=== PATIENT | male | born 1970 | race Caucasian/White ===

== ENCOUNTER 2020-09-03 11:39 | Outpatient (REF) | payer MEDICAID, SELFPAY ==
--- NOTE | 2020-09-03 11:46 | XR_ITS ---
EXAMINATION: XR KNEE, LEFT CLINICAL INFORMATION: Left knee pain x1 month COMPARISON: None TECHNIQUE: Four views of the left knee. FINDINGS: Bones and soft tissues are normal. No fracture or joint effusion. Alignment is anatomic. Joint spaces are well maintained. No abnormal soft tissue calcification. XR/XR knee LT 3V IMPRESSION: Unremarkable left knee.
== END 2020-09-03 11:40 | disposition home or self-care (01) ==
LOC: HO.XRAY 11:39
PROVIDERS: PCP Family Medicine; Visit Provider Family Medicine
DX: M25.562 Pain in left knee (principal)
CPT/HCPCS: 73562

== ENCOUNTER 2020-09-09 09:24 | Outpatient (REF) | payer MEDICAID, SELFPAY | END 2020-09-09 09:25 | disposition home or self-care (01) | LOC: HO.LAB 09:24 | PROVIDERS: PCP Family Medicine; Visit Provider Internal Medicine | DX: Z20.828 Contact with and (suspected) exposure to other viral communicable diseases (principal) | CPT/HCPCS: C9803; U0003 ==

== ENCOUNTER 2020-10-07 12:36 | Outpatient (REF) | payer MEDICAID, SELFPAY | END 2020-10-07 12:37 | disposition home or self-care (01) | LOC: HO.LAB 12:36 | PROVIDERS: Visit Provider Internal Medicine | DX: Z20.828 Contact with and (suspected) exposure to other viral communicable diseases (principal) | CPT/HCPCS: C9803; U0003 ==

== ENCOUNTER 2020-11-03 18:56 | Outpatient (REF) | payer MEDICAID, SELFPAY ==
--- NOTE | 2020-11-03 18:58 | MR_ITS ---
EXAMINATION: MR KNEE WITHOUT CONTRAST, LEFT CLINICAL INFORMATION: Left knee pain and swelling. Surgery in July 2020. COMPARISON: Multiple priors, most recent left knee radiographs dated 09/13/2020 TECHNIQUE: MRI of the knee without contrast was performed using routine sequences on a high-field scanner. FINDINGS: MENISCI: Medial Meniscus: Intact Lateral Meniscus: Focal inner margin oblique tear of the posterior meniscal body and posterior horn junction. LIGAMENTS: Cruciate: Intact Collateral: Mild soft tissue edema adjacent to the proximal medial collateral ligament, consistent with a grade 1 sprain. Intact fibular collateral ligament. EXTENSOR MECHANISM: Intact. ARTICULAR CARTILAGE/BONE: Patellofemoral Compartment: Normal. Medial Compartment: Normal. Lateral Compartment: Normal. JOINT FLUID AND BURSAE: Normal. MR/MR knee LT wo con IMPRESSION: 1. Focal inner margin oblique tear of the lateral meniscus posterior body/posterior horn junction. 2. Grade 1 sprain of the proximal medial collateral ligament.
== END 2020-11-03 18:57 | disposition home or self-care (01) ==
LOC: HO.MRI 18:56
PROVIDERS: Visit Provider Family Medicine
DX: M25.562 Pain in left knee (principal)
CPT/HCPCS: 73721

== ENCOUNTER → 2020-11-11 10:21 | Outpatient (BNVA) | payer MEDICAID, SELFPAY | PROVIDERS: Visit Provider Physician Assistant | DX: S83.412A Sprain of medial collateral ligament of left knee, initial encounter (principal) | CPT/HCPCS: 99202 ==

== ENCOUNTER 2020-12-14 15:42 | Emergency (ER) | payer MEDICAID, SELFPAY ==
[2020-12-14 16:14] VITALS: BP 145/76; PULSE 97; RESP 18; TEMP 37.1; O2SAT 97; BMI 19.8
[2020-12-14 19:35] VITALS: BP 121/73; PULSE 83; RESP 16; TEMP 36.7; O2SAT 99
[2020-12-14] MEDS: Lidocaine HCl 1 % MPF 5 ML VIAL SUBCUT ×2 (20:12)
[2020-12-14 20:32] VITALS: BP 109/76; PULSE 72; RESP 18; TEMP 36.6; O2SAT 95
--- NOTE | 2020-12-14 20:57 | ED.WOUNDLAC ---
HPI - Wound/Laceration General Chief Complaint: Wound/Laceration Stated Complaint: abcess Time Seen by Provider: 12/14/20 19:35 History of Present Illness HPI narrative: Patient complains of abscess in perineum that is recurrent and burst a couple of days ago with discharge of pus but now is closed up and starting to swell again no fever no dysuria Related Data Home Medications Medication Instructions Recorded Confirmed acetaminophen 650 mg 650 mg PO Q8H 11/11/20 tablet,extended release clonazepam 1 mg tablet 1 mg PO DAILY 11/11/20 cyclobenzaprine 5 mg tablet 5 mg PO BEDTIME 11/11/20 lisinopril 5 mg tablet 5 mg PO DAILY 11/11/20 loratadine 10 mg capsule 10 mg PO DAILY 11/11/20 Previous Rx's Medication Instructions Recorded doxycycline hyclate 100 mg PO BID 7 Days #14 cap 12/14/20 ibuprofen 600 mg PO Q6H PRN #14 tab 12/14/20 oxycodone-acetaminophen [Percocet] 1 tab PO Q4-6H PRN #7 tab 12/14/20 Allergies Allergy/AdvReac Type Severity Reaction Status Date / Time No Known Allergies Allergy Verified 12/14/20 16:14 Review of Systems Review of Systems: Complains of painful bump in perineum Review of systems negatives are no fever no chills no dizziness no weakness no dysuria no abdominal pain no genital discharge no rash no source Yes all other systems are reviewed and are negative [facility] Past Medical History Source: nursing notes reviewed Medical History (Updated 12/14/20 @ 21:05 by TAVIA Montez) Anxiety Arthritis Depression Fibromyalgia Hypertension Surgical History History of breast augmentation Social History Social History (Updated 11/11/20 @ 10:31 by aVlerie Anna CMA) Alcohol intake: unknown Smoking Status: Unknown if ever smoked Use of substances other than those prescribed or required for medical reasons: Unknown Advance Directives: No Advance Directives Information Provided: Yes Current occupational status: disabled Current occupation: Right Handed Physical Exam Vital Signs: Vital Signs: Last Vital Signs Temp 97.8 F 12/14/20 20:32 Pulse 72 12/14/20 20:32 Resp 18 12/14/20 20:32 BP 109/76 12/14/20 20:32 Pulse Ox 95 12/14/20 20:32 Body Mass Index 19.8 General appearance no acute distress cooperative A&O x3 Neck is supple Respiratory no acute distress Abdomen nontender Exam of the pin air perineum shows a quarter-sized area of fluctuance and erythema with some induration with no surrounding redness warmth, there is no wound there is no discharge there is no evidence of surrounding cellulitis Extremities full range of motion x4 Neuro no focal deficit Course Course Course Narrative: Small perineal abscess is cleansed with Betadine, anesthesia was 5 cc of 1% lidocaine A small incision less than 1/2 cm was made and the area was probed loculations broken up discharge of a small quantity of pus and small amount of blood packing was placed bleeding was controlled and a dressing was applied Discharge Plan Discharge Clinical Impression: Abscess Patient Disposition: Home, Self-Care Additional Instructions: Return to ER in 2 days for packing removal and wound check Return anytime for worse pain and swelling, spreading redness, fever, any concerns about worsening infection or any worse condition or any concerns Prescriptions: New doxycycline hyclate 100 mg capsule 100 mg PO BID 7 Days Qty: 14 RF: 0 ibuprofen 600 mg tablet 600 mg PO Q6H PRN (Reason: pain) Qty: 14 RF: 0 oxycodone-acetaminophen [Percocet] 5-325 mg tablet 1 tab PO Q4-6H PRN (Reason: pain) Qty: 7 RF: 0
== END 2020-12-14 20:15 | disposition home or self-care (01) ==
PROVIDERS: Emergency Provider Internal Medicine; PCP Family Medicine
DX: L02.215 Cutaneous abscess of perineum (principal)
CPT/HCPCS: 10060; 99284

== ENCOUNTER 2021-01-28 12:00 | Outpatient (RCR) | payer MEDICAID, SELFPAY ==
[2020-12-09 11:05] VITALS: BP 123/79; PULSE 99
--- NOTE | 2020-12-09 12:30 | MHC.PT.EP ---
[facility] [place] Office [place] Office [place] Office [address] Estela Bella [address] [phone] F: [phone] F: [phone] F: [phone] F: [phone] Physical Therapy Plan of Care Date of Evaluation: 12/09/20 Date of Surgery: NA Diagnosis: Sprain of medial collateral ligament of L knee Assessment: Linda is a 50 year-old female presenting to physical therapy with a diagnosis of a grade 1 MCL sprain in her left knee. She presents with point tenderness to palpation over her L medial joint line, decreased BL knee ROM, impaired BL LE strength,impaired posture, and impaired gait mechanics. These impairments limit her ability to squat, climb stairs, perform heavy vacation guide, and walk long distances. Linda would benefit from skilled physical therapy to address the aforementioned impairments and increase her tolerance to performing vacation guide, self-care activities, and ambulate safely in the community. Linda has a good understanding of her rehabilitation program and she is motivated to return to her PLOF. Frequency and Duration: The patient will be seen 2 visits per week for 6 weeks Short Term Goals: 1.) Pt will report <2/10 pain in her knee at rest in order to perform leisure activities within 3 weeks. 2.) Pt will tolerate walking for >15 minutes to allow for ambulation in the community when attending doctor's appointments within 3 weeks. Compliance Coordinator Goals: 1.) Pt will improve global LE strength to 5-/5 to allow her to perform heavy vacation guide without restrictions within 6 weeks. 2.) Pt will demonstrate BL knee ROM WNL to enable her to squat down and obtain items from the floor when cleaning the house. Treatment Plan: Modalities to reduce pain, spasms and effusion. Manual therapy to restore motion and function. Therapeutic exercise to improve strength and flexibility. Neuromuscular re-education for posture and balance. Therapeutic activities to return to functional activities of daily living. Electronically signed by: Guera Lawson DPT Please sign and return to therapist. Thank you for your referral.
--- NOTE | 2021-01-28 12:46 | MHC.PT.DC ---
[facility] [place] Office [place] Office [place] Office [address] Estela Bella [address] [phone] F: [phone] F: [phone] F: [phone] F: [phone] Physical Therapy Discharge Report Diagnosis: Sprain of medial collateral ligament of L knee Date of Surgery: NA Date of Evaluation: 12/09/20 Date of Discharge: 01/28/21 Treatments to Date: 8 Cancellations to Date: 1 No Shows to Date: 2 Discharge Status: Achieved Goals Improved Function Discharge Summary: 01/28/21- Pt states that her knee feels good when she does not have fibromylagia flare ups. Pt has overall improved significantly and is independent with all HEPs. The days she does not have fibromyalgia flare ups she is independent with all ADLS and leisure activities. She has also been able to tolerate walking for 15-30 minutes without any increase in pain. Linda was advised to continue with her strengthening exercises to further improve her strength in B LE. She is d/c from therapy to HEPs. Linda was in agreement with the plan. Electronically signed by: Guera Lawson DPT Please sign and return to therapist. Thank you for your referral.
== END 2021-01-28 12:47 | disposition other institution (70) ==
LOC: HO.PT 12:00
PROVIDERS: PCP Family Medicine; Visit Provider Physician Assistant
DX: S83.412D Sprain of medial collateral ligament of left knee, subsequent encounter (principal)
CPT/HCPCS: 97110; 97112; 97161; 97530

== ENCOUNTER 2021-04-06 18:17 | Emergency (ER) | payer MEDICAID, SELFPAY ==
--- NOTE | ~2021-04-06 | XR_ITS ---
EXAMINATION: XR TIBIA AND FIBULA, LEFT CLINICAL INFORMATION: Fracture with trauma COMPARISON: None TECHNIQUE: AP and lateral views of the left tibia and fibula were obtained. FINDINGS: A defect in the soft tissues overlying the anterior fr[place] is present. No bony abnormality is seen. The visualized ankle and knee joints appears normal. No radiopaque foreign bodies are seen. XR/XR tibia fibula LT 2V IMPRESSION: There is a soft tissue defect seen in the upper france. No bony abnormality is detected
[2021-04-06 18:26] VITALS: BP 97/52; PULSE 85; RESP 20; TEMP 36.9; O2SAT 96; BMI 18.2
[2021-04-06] MEDS: Lidocaine HCl 2 % MPF 5 ML VIAL INFILTRATI ×2 (19:11)
[2021-04-06] MEDS: Ibuprofen 800 MG TABLET PO (19:11)
[2021-04-06] MEDS: Diphth,Pertus(ACell),Tet Adult 0.5 ML SYRINGE IM (19:12)
--- NOTE | 2021-04-06 20:08 | ED_ITS ---
HPI - Wound/Laceration General Chief Complaint: Wound/Laceration Stated Complaint: lac Time Seen by Provider: 04/06/21 18:28 Source: patient Mode of arrival: ambulatory Limitations: no limitations History of Present Illness HPI narrative: Left leg laceration after AC unit fell on leg. Patient denies falling to the ground. Patient denies hitting head. Patient is not on any blood thinners. Related Data Home Medications Medication Instructions Recorded Confirmed acetaminophen 650 mg 650 mg PO Q8H 11/11/20 tablet,extended release clonazepam 1 mg tablet 1 mg PO DAILY 11/11/20 cyclobenzaprine 5 mg tablet 5 mg PO BEDTIME 11/11/20 lisinopril 5 mg tablet 5 mg PO DAILY 11/11/20 loratadine 10 mg capsule 10 mg PO DAILY 11/11/20 Previous Rx's Medication Instructions Recorded doxycycline hyclate 100 mg PO BID 7 Days #14 cap 12/14/20 ibuprofen 600 mg PO Q6H PRN #14 tab 12/14/20 oxycodone-acetaminophen [Percocet] 1 tab PO Q4-6H PRN #7 tab 12/14/20 cephalexin 500 mg PO QID #28 cap 04/06/21 Allergies Allergy/AdvReac Type Severity Reaction Status Date / Time No Known Allergies Allergy Verified 12/14/20 16:14 Review of Systems Review of Systems: Yes all other systems are reviewed and are negative Constitutional: Constitutional: Reports as per HPI and Reports no additional constitutional complaints Eyes: Eyes: Reports as per HPI and Reports no additional eye complaints ENT: Reports system reviewed and no additional complaints, except as documented and Reports as per HPI Cardiovascular: Cardiovascular: Reports as per HPI and Reports no additional cardiovascular complaints Respiratory: Respiratory: Reports as per HPI and Reports no additional respiratory complaints Gastrointestinal: Gastrointestinal: Reports as per HPI and Reports no additional gastrointestinal complaints Genitourinary: Genitourinary: Reports no additional male genitourinary complaints and Reports as per HPI Musculoskeletal: Musculoskeletal: Reports no additional musculoskeletal complaints and Reports as per HPI Comments: Left leg laceration Neurologic: Reports system reviewed and no additional complaints, except as documented and Reports as per HPI Psychiatric: Psychiatric: Reports no additional psychiatric complaints and Reports as per HPI [facility] Past Medical History Medical History (Updated 04/06/21 @ 21:22 by TAVIA Chand) Anxiety Arthritis Depression Fibromyalgia Hypertension Surgical History History of breast augmentation Social History Social History (Updated 11/11/20 @ 10:31 by Valerie Anna [facility]) Alcohol intake: unknown Advance Directives: No Advance Directives Information Provided: Yes Current occupational status: disabled Current occupation: Right Handed Physical Exam Vital Signs: Vital Signs: Last Vital Signs Temp 97.9 F 04/06/21 20:51 Pulse 73 04/06/21 20:51 Resp 16 04/06/21 20:51 BP 130/82 04/06/21 20:51 Pulse Ox 99 04/06/21 20:51 Body Mass Index 18.2 Const: General: cooperative, healthy appearing, comfortable, no acute distress, well developed, alert, awake and Physically active Orientation/consciousness: patient oriented x3 HENMT: Head: Yes normal to inspection, Yes No palpable skull fracture present, Yes normocephalic, Yes atraumatic, No abrasion, No Acrocyanosis present, No Soilman's sign, No contusion, No cranial bruits, No hematoma, No laceration, No occipital foramen tenderness, No palpable skull fracture, No raccoon eyes, No scalp lesion, No scalp tenderness, No Temporal artery tenderness present and No periorbital ecchymosis Eyes: General: appearance normal, both eyes and all related structures Neck: Neck: Yes normal visual inspection, Yes full ROM, Yes no lymphadenopathy, Yes no meningeal signs, Yes trachea midline, Yes supple and No tender Chest: Chest palpation & inspection: normal inspection of the chest and normal palpation of entire chest wall Resp: Effort & Inspection: normal respiratory effort and able to speak in complete sentences Auscultation: clear to auscultation bilaterally Cardio: Jugular venous distension: no JVD Heart sounds: S1 normal heart sound present and S2 normal heart sound present GI: Inspection: Yes normal to inspection and No abdominal wall ecchymosis Palpation (GI): Soft to palpation, not firm, nontender, no guarding and not rigid : General: No CVA tenderness Back/Spine/Pelvis: Back: no CVA tenderness, No CVA tenderness and No back tenderness Skin: General skin exam: no rashes or lesions noted and elasticity normal Neuro: General: patient oriented x3, no meningeal signs and CN's II-XI intact bilaterally Cranial nerves: Yes CN's II-XII intact bilaterally Extrem: Other: Left leg positive for large anterior laceration with fascial exposure. Negative for bony exposure. Psych: Appearance: grossly normal, well kempt and not disheveled Course Course Course Narrative: Left leg laceration will do x-ray. Reevaluation(s) Reevaluation #1: X-ray negative for fracture. Will repair laceration. Tdap ordered. Motrin given for pain relief Reevaluation #2: Laceration clean with sterile saline and Betadine iodine. Laceration anesthetized with 10 mL 2% lidocaine. Very large laceration and deep with subcutaneous exposure. Two deep absorbable size 5 sutures were placed in wound. For super superficial skin size 3 nylon sutures were placed. Eleven simple sutures sutures were placed. One horizontal vertical suture mattress placed. Due to in severity of laceration and also being hit by dirty AC patient will be discharged with antibiotics to prevent in fection Time: 21:21 MDM - Wound/Laceration MDM Narrative Medical decision making narrative: Laceration Discharge Plan Discharge Clinical Impression: Laceration Patient Disposition: Home, Self-Care Instructions: Laceration (ED) Additional Instructions: Return to the ED immediately for redness, pus discharge, foul odor, fever, chills, any other concerning symptoms. Sutures should be removed in 12 days at this ED, any urgent care, or primary care. Keep laceration dry within the 1st 24 hours Prescriptions: New cephalexin 500 mg capsule 500 mg PO QID Qty: 28 RF: 0 No Action doxycycline hyclate 100 mg capsule 100 mg PO BID 7 Days Qty: 14 RF: 0 ibuprofen 600 mg tablet 600 mg PO Q6H PRN (Reason: pain) Qty: 14 RF: 0 oxycodone-acetaminophen [Percocet] 5-325 mg tablet 1 tab PO Q4-6H PRN (Reason: pain) Qty: 7 RF: 0 Stand Alone Forms: Work/School Release Print Language: Romansh
[2021-04-06 20:51] VITALS: BP 130/82; PULSE 73; RESP 16; TEMP 36.6; O2SAT 99
--- NOTE | 2021-04-06 21:14 | PC.NURSE ---
PCT CLEANED AND APPLIED DSD TO SUTURED WOUND LLE. PT AMBULATING IN ED W/ EVEN STEADY GAIT.
== END 2021-04-06 21:37 | disposition home or self-care (01) ==
PROVIDERS: Emergency Provider Emergency Medicine; PCP Family Medicine
DX: S81.812A Laceration without foreign body, left lower leg, initial encounter (principal); W45.8XXA Other foreign body or object entering through skin, initial encounter; Y93.E9 Activity, other interior property and clothing maintenance; Y92.019 Unspecified place in single-family (private) house as the place of occurrence of the external cause; Y99.9 Unspecified external cause status
CPT/HCPCS: 12032; 73590; 90471; 90715; 99284

== ENCOUNTER 2021-04-08 14:44 | Outpatient (REF) | payer MEDICAID, SELFPAY ==
--- NOTE | 2021-04-08 | PFT_ITS ---
Forced vital capacity and FEV1 are normal. [id number] is slightly decreased. MVV normal. Post bronchodilator therapy, there is a minimal improvement in [id number]. Total lung capacity and residual volume normal. Diffusion capacity is slightly decreased. CONCLUSION: Mild obstructive airway disorder, mainly involving small airways. There is a minimal improvement after bronchodilator therapy. Clinical correlation is recommended. MD JANE Carlton/MODL / [id number]
== END 2021-04-08 14:45 | disposition home or self-care (01) ==
LOC: HO.RESP 14:44
PROVIDERS: PCP Family Medicine; Visit Provider Family Medicine
DX: J45.30 Mild persistent asthma, uncomplicated (principal)
CPT/HCPCS: 94060; 94727; 94729

== ENCOUNTER 2021-04-20 11:21 | Emergency (ER) | payer MEDICAID, SELFPAY ==
[2021-04-20 11:59] VITALS: BP 123/78; PULSE 72; RESP 16; TEMP 36.7; O2SAT 100; BMI 19.0
--- NOTE | 2021-04-20 12:53 | ED.WOUNDLAC ---
HPI - Wound/Laceration General Chief Complaint: Wound/Laceration Stated Complaint: suture removal Time Seen by Provider: 04/20/21 12:21 Source: patient Mode of arrival: ambulatory History of Present Illness HPI narrative: 50-year-old female presenting to the ED for suture removal from a left lower extremity that were placed on 04/06/2021. Admits to mild swelling to area. Denies drainage, fever, chills, ecchymosis, erythema Onset (ago): week(s) Related Data Home Medications Medication Instructions Recorded Confirmed acetaminophen 650 mg 650 mg PO Q8H 11/11/20 tablet,extended release clonazepam 1 mg tablet 1 mg PO DAILY 11/11/20 cyclobenzaprine 5 mg tablet 5 mg PO BEDTIME 11/11/20 lisinopril 5 mg tablet 5 mg PO DAILY 11/11/20 loratadine 10 mg capsule 10 mg PO DAILY 11/11/20 Previous Rx's Medication Instructions Recorded doxycycline hyclate 100 mg PO BID 7 Days #14 cap 12/14/20 ibuprofen 600 mg PO Q6H PRN #14 tab 12/14/20 oxycodone-acetaminophen [Percocet] 1 tab PO Q4-6H PRN #7 tab 12/14/20 cephalexin 500 mg PO QID #28 cap 04/06/21 acetaminophen [Tylenol Extra 500 mg PO Q6H PRN #20 tab 04/20/21 Strength] bacitracin 1 appl TOPICAL BID #28 g 04/20/21 doxycycline hyclate 100 mg PO BID 7 Days #14 tab 04/20/21 ibuprofen 800 mg PO Q8H PRN #14 tab 04/20/21 Allergies Allergy/AdvReac Type Severity Reaction Status Date / Time No Known Allergies Allergy Verified 12/14/20 16:14 Review of Systems Review of Systems: Constitutional: No Fever, No Chills Musculoskeletal: No joint pain, No Myalgias, No Joint Swelling Skin: + laceration Neuro: No Weakness, No Numbness, No Paresthesias Yes all other systems are reviewed and are negative [facility] Past Medical History Attestation statement: The following information was validated with the patient. Medical History (Updated 04/20/21 @ 12:59 by TAVIA Le) Anxiety Arthritis Depression Fibromyalgia Hypertension Surgical History History of breast augmentation Social History Social History (Updated 11/11/20 @ 10:31 by Valerie Anna CMA) Alcohol intake: unknown Advance Directives: No Advance Directives Information Provided: No Current occupational status: disabled Current occupation: Right Handed Physical Exam Vital Signs: Vital Signs: Last Vital Signs Temp 98.0 F 04/20/21 11:59 Pulse 72 04/20/21 11:59 Resp 16 04/20/21 11:59 BP 123/78 04/20/21 11:59 Pulse Ox 100 04/20/21 11:59 Body Mass Index 19.0 Const: General: cooperative and healthy appearing Orientation/consciousness: patient oriented x3 Limitations: no limitations HENMT: Head: Yes normal to inspection Ears: hearing grossly normal bilaterally General nose exam: Normal external nose present Face and sinus: Yes normal facial exam Eyes: General: appearance normal, both eyes and all related structures EOM: EOMs intact bilaterally Neck: Neck: Yes normal visual inspection and Yes no meningeal signs Resp: Effort & Inspection: normal respiratory effort Cardio: Peripheral pulses: dorsalis pedis present Skin: Other: + healing laceration to left lower extremity with sutures intact. Underlying hematoma. No overlying erythema/cellulitis. No fluctuance/induration. No streaking. No expressible drainage Rashes: no rashes Neuro: General: patient oriented x3 and no meningeal signs Gait exam (Neuro): Normal gait present Extrem: General: Yes normal to inspection Procedures Procedure Narrative Procedure Narrative: Suture removal : 12 sutures removed from left lower extremity MDM - Wound/Laceration MDM Narrative Medical decision making narrative: 50-year-old female presenting to the ED for suture removal from a left lower extremity that were placed on 04/06/2021. On exam VSS, NAD, physical exam as above. 12 sutures removed from left lower extremity. Underlying hematoma appreciated Bacitracin and Kobe wrap applied. Given prophylactic antibiotics Discharge Plan Discharge Clinical Impression: Visit for suture removal, Hematoma Patient Disposition: Home, Self-Care Instructions: Stitches Removal (ED) Additional Instructions: Stitches removed today in the ED Apply bacitracin at home or Neosporin Wear Kobe wrap for compression Doxycycline as antibiotic to prophylactically treat any infective hematoma You should follow-up with the alignment specialist as previously instructed Area begins to look infected, is red, there is pus drainage, you have fever please return to the ED Otherwise follow-up with her primary care doctor Prescriptions: New acetaminophen [Tylenol Extra Strength] 500 mg tablet 500 mg PO Q6H PRN (Reason: pain or fever) Qty: 20 RF: 0 doxycycline hyclate 100 mg tablet 100 mg PO BID 7 Days Qty: 14 RF: 0 ibuprofen 800 mg tablet 800 mg PO Q8H PRN (Reason: pain) Qty: 14 RF: 0 bacitracin 500 unit/gram ointment 1 appl topical BID Qty: 28 RF: 0 No Action doxycycline hyclate 100 mg capsule 100 mg PO BID 7 Days Qty: 14 RF: 0 ibuprofen 600 mg tablet 600 mg PO Q6H PRN (Reason: pain) Qty: 14 RF: 0 oxycodone-acetaminophen [Percocet] 5-325 mg tablet 1 tab PO Q4-6H PRN (Reason: pain) Qty: 7 RF: 0 cephalexin 500 mg capsule 500 mg PO QID Qty: 28 RF: 0 Referrals: Mara Mariscal DO [Primary Care Provider] - 2 days Ayaka Gotti PA-C [Physician [employer] Patcher Helper] - 5 days
== END 2021-04-20 13:13 | disposition home or self-care (01) ==
PROVIDERS: Emergency Provider Emergency Medicine; PCP Family Medicine
DX: S81.812D Laceration without foreign body, left lower leg, subsequent encounter (principal); X58.XXXD Exposure to other specified factors, subsequent encounter; S80.12XA Contusion of left lower leg, initial encounter; X58.XXXA Exposure to other specified factors, initial encounter; Y93.9 Activity, unspecified; Y92.9 Unspecified place or not applicable; Y99.9 Unspecified external cause status
CPT/HCPCS: 99283

== ENCOUNTER 2021-05-08 02:36 | Emergency (ER) | payer MEDICAID, SELFPAY ==
[2021-05-08 03:10] VITALS: BP 130/83; PULSE 89; RESP 18; TEMP 36.7; O2SAT 97; BMI 19.8
--- NOTE | 2021-05-08 03:24 | ED.WOUNDLAC ---
HPI - Wound/Laceration General Chief Complaint: Wound/Laceration Stated Complaint: Accident at home, lac Time Seen by Provider: 05/08/21 03:24 History of Present Illness HPI narrative: Patient is 50 years old presents today with having a wound to his left leg. Patient had a previous history of laceration to the wound. Subsequently was sutured. The sutured root was removed. Patient complained that the redness remain. He has been spraying the wounds regularly with peroxide. Patient is extremely concerned why the wound is still red. Related Data Home Medications Medication Instructions Recorded Confirmed acetaminophen 650 mg 650 mg PO Q8H 11/11/20 tablet,extended release clonazepam 1 mg tablet 1 mg PO DAILY 11/11/20 cyclobenzaprine 5 mg tablet 5 mg PO BEDTIME 11/11/20 lisinopril 5 mg tablet 5 mg PO DAILY 11/11/20 loratadine 10 mg capsule 10 mg PO DAILY 11/11/20 Previous Rx's Medication Instructions Recorded doxycycline hyclate 100 mg PO BID 7 Days #14 cap 12/14/20 ibuprofen 600 mg PO Q6H PRN #14 tab 12/14/20 oxycodone-acetaminophen [Percocet] 1 tab PO Q4-6H PRN #7 tab 12/14/20 cephalexin 500 mg PO QID #28 cap 04/06/21 acetaminophen [Tylenol Extra 500 mg PO Q6H PRN #20 tab 04/20/21 Strength] bacitracin 1 appl TOPICAL BID #28 g 04/20/21 doxycycline hyclate 100 mg PO BID 7 Days #14 tab 04/20/21 ibuprofen 800 mg PO Q8H PRN #14 tab 04/20/21 Allergies Allergy/AdvReac Type Severity Reaction Status Date / Time No Known Allergies Allergy Verified 12/14/20 16:14 Review of Systems Review of Systems: No fever no chills no chest pain or shortness of breath no diaphoresis PMFSH Past Medical History Attestation statement: The following information was validated with the patient. Medical History Anxiety Arthritis Depression Fibromyalgia Hypertension Surgical History History of breast augmentation Social History Social History Alcohol intake: unknown Advance Directives: No Current occupational status: disabled Current occupation: Right Handed Physical Exam Vital Signs: Vital Signs: Last Vital Signs Temp 98.0 F 05/08/21 03:10 Pulse 89 05/08/21 03:10 Resp 18 05/08/21 03:10 BP 130/83 05/08/21 03:10 Pulse Ox 97 05/08/21 03:10 Body Mass Index 19.8 Appearance: Alert. Oriented X3. No acute distress. Eyes: Pupils equal, round and reactive to light. ENT: Pharynx normal. Neck: Normal inspection. Neck supple. No lymph nodes noted. No crepitus CVS: Normal heart rate and rhythm. Pulses normal. Normal S1 and S2 Respiratory: No respiratory distress. Breath sounds normal. No Wheezing. No rales Abdomen: Soft and nontender. No rigidity. No distention. good BS x4 Skin: There is a healing wound over the left leg proximally midway down. It is slightly red. There is no purulent discharge noted. There is no fluctuance on palpation. Extremities: No lower extremity edema. Neurovascular intact to all extremities. No Lacerations. No Rash Neuro: Oriented X 3. No motor deficit. No sensory deficit. Moving all extermities. No slurred speech MDM - Wound/Laceration MDM Narrative Medical decision making narrative: Patient wound grossly not infected. It is however extremely irritated secondary to peroxide use. Patient told to stop using peroxide on the wound. Keep the wound clean with soap and water. Patient states understanding. In stable condition with discharge home. Discharge Plan Discharge Clinical Impression: Visit for wound care Patient Disposition: Home, Self-Care Instructions: Laceration (ED) Additional Instructions: Please do not use peroxide on the wound anymore. Prescriptions: No Action doxycycline hyclate 100 mg capsule 100 mg PO BID 7 Days Qty: 14 RF: 0 ibuprofen 600 mg tablet 600 mg PO Q6H PRN (Reason: pain) Qty: 14 RF: 0 oxycodone-acetaminophen [Percocet] 5-325 mg tablet 1 tab PO Q4-6H PRN (Reason: pain) Qty: 7 RF: 0 acetaminophen [Tylenol Extra Strength] 500 mg tablet 500 mg PO Q6H PRN (Reason: pain or fever) Qty: 20 RF: 0 doxycycline hyclate 100 mg tablet 100 mg PO BID 7 Days Qty: 14 RF: 0 ibuprofen 800 mg tablet 800 mg PO Q8H PRN (Reason: pain) Qty: 14 RF: 0 bacitracin 500 unit/gram ointment 1 appl topical BID Qty: 28 RF: 0 cephalexin 500 mg capsule 500 mg PO QID Qty: 28 RF: 0 Referrals: Physician,Unknown [Primary Care Provider] - 2 days
== END 2021-05-08 04:03 | disposition home or self-care (01) ==
PROVIDERS: Emergency Provider Emergency Medicine Emergency Medical Services
DX: S81.812D Laceration without foreign body, left lower leg, subsequent encounter (principal); X58.XXXD Exposure to other specified factors, subsequent encounter
CPT/HCPCS: 99282; 99284

== ENCOUNTER 2021-05-18 21:36 | Emergency (ER) | payer MEDICAID, SELFPAY ==
[2021-05-18 21:48] VITALS: BP 128/81; PULSE 86; RESP 18; TEMP 37.3; O2SAT 96; BMI 19.0
--- NOTE | 2021-05-18 22:25 | ED.LOWEXIN ---
HPI - Extremity Injury (Lower) General Chief Complaint: Extremity Injury, Lower Stated Complaint: leg injury Time Seen by Provider: 05/18/21 22:25 Source: patient Mode of arrival: ambulatory Limitations: no limitations History of Present Illness HPI Narrative: Patient with multiple visits for leg laceration and infection. The last time the patient was convinced the wound was infected but the provider did not feel that it was. Patient was not discharged on antibiotics Related Data Home Medications Medication Instructions Recorded Confirmed acetaminophen 650 mg 650 mg PO Q8H 11/11/20 tablet,extended release clonazepam 1 mg tablet 1 mg PO DAILY 11/11/20 cyclobenzaprine 5 mg tablet 5 mg PO BEDTIME 11/11/20 lisinopril 5 mg tablet 5 mg PO DAILY 11/11/20 loratadine 10 mg capsule 10 mg PO DAILY 11/11/20 Previous Rx's Medication Instructions Recorded doxycycline hyclate 100 mg PO BID 7 Days #14 cap 12/14/20 ibuprofen 600 mg PO Q6H PRN #14 tab 12/14/20 oxycodone-acetaminophen [Percocet] 1 tab PO Q4-6H PRN #7 tab 12/14/20 cephalexin 500 mg PO QID #28 cap 04/06/21 acetaminophen [Tylenol Extra 500 mg PO Q6H PRN #20 tab 04/20/21 Strength] bacitracin 1 appl TOPICAL BID #28 g 04/20/21 doxycycline hyclate 100 mg PO BID 7 Days #14 tab 04/20/21 ibuprofen 800 mg PO Q8H PRN #14 tab 04/20/21 Allergies Allergy/AdvReac Type Severity Reaction Status Date / Time No Known Allergies Allergy Verified 05/18/21 21:53 Review of Systems Constitutional: Constitutional: Reports no additional constitutional complaints Eyes: Eyes: Reports no additional eye complaints ENT: Denies dizziness Cardiovascular: Cardiovascular: Reports no additional cardiovascular complaints Respiratory: Respiratory: Reports as per HPI Gastrointestinal: Gastrointestinal: Reports no additional gastrointestinal complaints Musculoskeletal: Musculoskeletal: Reports no additional musculoskeletal complaints Integumentary/Breasts: Skin/Breast: Denies rash Neurologic: Reports system reviewed and no additional complaints, except as documented, Denies dizziness and Denies Sensory deficit (Neuro) Psychiatric: Psychiatric: Denies anxiety PMFSH Past Medical History Medical History Anxiety Arthritis Depression Fibromyalgia Hypertension Surgical History History of breast augmentation Social History Social History Alcohol intake: unknown Advance Directives: No Advance Directives Information Provided: No Current occupational status: disabled Current occupation: Right Handed Physical Exam Vital Signs: Vital Signs: Last Vital Signs Temp 99.1 F 05/18/21 21:48 Pulse 86 05/18/21 21:48 Resp 18 05/18/21 21:48 BP 128/81 05/18/21 21:48 Pulse Ox 96 05/18/21 21:48 Body Mass Index 19.0 Const: Other: very anxious out of proportion that wound is infected General: healthy appearing Nutritional Appearance: average body habitus Orientation/consciousness: oriented to person and patient oriented x3 Limitations: no limitations HENMT: Head: Yes normal to inspection Ears: external ears normal General nose exam: Normal external nose present Mouth: Normal oral and palatal mucosa present and oropharynx normal Throat: Yes posterior oropharynx normal Eyes: General: appearance normal, both eyes and all related structures Neck: Other: supple Neck: Yes normal visual inspection Chest: Chest palpation & inspection: normal inspection of the chest Resp: Auscultation: clear to auscultation bilaterally Cardio: Jugular venous distension: no JVD Rate: regular rate Rhythm: regular rhythm Heart sounds: S1 normal heart sound present and S2 normal heart sound present GI: Inspection: Yes normal to inspection Palpation (GI): Soft to palpation, nontender and No hepatosplenomegaly present Auscultation: normal bowel sounds : General: Yes no CVA tenderness Back/Spine/Pelvis: Back: no CVA tenderness Skin: Other: well healing wound no evidence of infection Neuro: General: oriented to person and patient oriented x3 Cranial nerves: Yes CN's II-XII intact bilaterally Motor exam (neuro): 5/5 motor strength present throughout Sensory Exam: No Sensory deficit (Neuro) Extrem: General: Yes normal to inspection Psych: Appearance: grossly normal Course Reevaluation(s) Reevaluation #1: bedside ultrasound negative for fluid collection Time: 22:37 Reevaluation #2: patient with anxiety about wound, no physical evidence for infection, will dc home Time: 22:37 Discharge Plan Discharge Clinical Impression: Encounter for assessment of wound Patient Disposition: Home, Self-Care Instructions: Wound Healing and Your Diet (ED) Prescriptions: No Action doxycycline hyclate 100 mg capsule 100 mg PO BID 7 Days Qty: 14 RF: 0 ibuprofen 600 mg tablet 600 mg PO Q6H PRN (Reason: pain) Qty: 14 RF: 0 oxycodone-acetaminophen [Percocet] 5-325 mg tablet 1 tab PO Q4-6H PRN (Reason: pain) Qty: 7 RF: 0 acetaminophen [Tylenol Extra Strength] 500 mg tablet 500 mg PO Q6H PRN (Reason: pain or fever) Qty: 20 RF: 0 doxycycline hyclate 100 mg tablet 100 mg PO BID 7 Days Qty: 14 RF: 0 ibuprofen 800 mg tablet 800 mg PO Q8H PRN (Reason: pain) Qty: 14 RF: 0 bacitracin 500 unit/gram ointment 1 appl topical BID Qty: 28 RF: 0 cephalexin 500 mg capsule 500 mg PO QID Qty: 28 RF: 0 Referrals: Mara Mariscal DO [Primary Care Provider] - 5 days
== END 2021-05-18 22:46 | disposition home or self-care (01) ==
PROVIDERS: Emergency Provider Emergency Medicine; PCP Family Medicine
DX: S81.819D Laceration without foreign body, unspecified lower leg, subsequent encounter (principal); X58.XXXD Exposure to other specified factors, subsequent encounter; F41.9 Anxiety disorder, unspecified
CPT/HCPCS: 99282; 99284

== ENCOUNTER 2021-05-22 12:35 | Emergency (ER) | payer MEDICAID, SELFPAY ==
[2021-05-22 12:54] VITALS: BP 128/85; PULSE 93; RESP 19; TEMP 36.2; O2SAT 98; BMI 19.0
--- NOTE | 2021-05-22 21:14 | ED.DENTAL ---
HPI - Dental/Oral General Chief complaint: Dental/Oral Stated complaint: ABSCESS Related Data Home Medications Medication Instructions Recorded Confirmed acetaminophen 650 mg 650 mg PO Q8H 11/11/20 12/28/21 tablet,extended release (Tylenol 8 Hour) clonazepam 1 mg tablet 1 mg PO DAILY 11/11/20 01/30/22 cyclobenzaprine 5 mg tablet 5 mg PO BEDTIME 11/11/20 01/30/22 lisinopril 5 mg tablet 5 mg PO DAILY 11/11/20 01/30/22 loratadine 10 mg capsule 10 mg PO DAILY 11/11/20 01/30/22 Previous Rx's Medication Instructions Recorded sodium,potassium,mag sulfates 17.5 See Rx Instructions PO .COMPLEX 12/28/21 gram-3.13 gram-1.6 gram oral soln #354 mL (Suprep Bowel Prep Kit) peg 3350-electrolytes 236 240 ml PO Q10M #4,000 mL 03/23/22 gram-22.74 gram-6.74 gram-5.86 gram solution (Golytely) ibuprofen 600 mg tablet 600 mg PO Q6H PRN pain #30 tabs 05/07/22 amoxicillin 875 mg-potassium 1 tab PO BID 10 days #20 tabs 05/28/22 clavulanate 125 mg tablet ibuprofen 800 mg tablet 800 mg PO Q8H PRN pain #14 tabs 05/28/22 oxycodone 5 mg tablet 5 mg PO Q6H PRN pain #14 tabs 05/28/22 Allergies Allergy/AdvReac Type Severity Reaction Status Date / Time No Known Allergies Allergy Verified 05/28/22 21:17 [facility] Past Medical History Medical History Anxiety Arthritis Depression Family history of colon cancer Fibromyalgia Hypertension Surgical History H/O colonoscopy History of breast augmentation Social History Social History Alcohol intake: current Alcohol intake frequency: a few times a month Alcohol type: beer and wine Patient Tobacco Use Status: Current everyday Tobacco user Substance Use Type: Marijuana Current occupational status: disabled Current occupation: Right Handed Physical Exam Vital Signs: Vital Signs: Last Vital Signs Temp 97.1 F 05/22/21 12:54 Pulse 93 05/22/21 12:54 Resp 19 05/22/21 12:54 BP 128/85 05/22/21 12:54 Pulse Ox 98 05/22/21 12:54 O2 Del Method 05/22/21 12:54 BMI result Body Mass Index 19.0 Discharge Plan Discharge Patient Disposition: Left Without Being Seen Discharge Date/Time: 05/22/21 15:12
== END 2021-05-22 15:12 | disposition left against medical advice (07) ==
PROVIDERS: Emergency Provider Emergency Medicine; PCP Family Medicine
DX: K04.7 Periapical abscess without sinus (principal)
CPT/HCPCS: 99281; 99282

== ENCOUNTER 2021-05-23 15:52 | Outpatient (REF) | payer MEDICAID, SELFPAY ==
--- NOTE | ~2021-05-23 | XR_ITS ---
EXAMINATION: XR MANDIBLE CLINICAL INFORMATION: Cutaneous abscess COMPARISON: None TECHNIQUE: 4 views of the mandible were obtained. FINDINGS: Bone alignment is normal. No fracture, dislocation or bone lesion is seen. There is periapical lucency adjacent to a tooth in the right inferior alveolar ridge in the incisor region. Soft tissues are unremarkable. XR/XR mandible <4V IMPRESSION: Periapical lucency adjacent to a tooth in the right inferior alveolar ridge in the incisor region. Otherwise unremarkable exam.
== END 2021-05-23 15:53 | disposition home or self-care (01) ==
LOC: HO.XRAY 15:52
PROVIDERS: PCP Family Medicine; Referring Provider Family Medicine; Visit Provider Nurse Practitioner Primary Care
DX: L02.91 Cutaneous abscess, unspecified (principal); R68.84 Jaw pain
CPT/HCPCS: 70100

== ENCOUNTER 2021-07-09 08:49 | Emergency (ER) | payer MEDICAID, SELFPAY ==
[2021-07-09 09:04] VITALS: BP 150/95; PULSE 85; RESP 18; TEMP 36.4; O2SAT 100; BMI 20.5
--- NOTE | 2021-07-09 09:04 | ED.DENTAL ---
HPI - Dental/Oral General Chief complaint: Dental/Oral Stated complaint: abscess Time Seen by Provider: 07/09/21 08:52 Source: patient Mode of arrival: ambulatory Limitations: no limitations History of Present Illness HPI Narrative: 50 y/o transgener male to female with history of fibromyalgia, history of poor dental care and abscesses in the past presents to the ER for evaluation of new left sided facial swelling that started today when she woke up. She reports no pain as of yesterday. She reports her prior dental abscess on the right side came up out of no where as well. She has poor dentition with a broken tooth in her left lower side. She has pain with opening the jaw fully but she is able to do so. She is able to eat and drink but with discomfort. No fevers. No neck swelling. MD Complaint: tooth pain Location: Tooth # (17) Onset (ago): hour(s) Duration: constant Severity: moderate Severity scale (1-10): 7 Relieving factors: prescription analgesics Exacerbating factors: chewing Context: history of dental caries and poor dental care Associated symptoms: gum swelling and pain with swallowing Treatment prior to arrival: none Related Data Home Medications Medication Instructions Recorded Confirmed acetaminophen 650 mg 650 mg PO Q8H 11/11/20 tablet,extended release (Tylenol 8 Hour) clonazepam 1 mg tablet 1 mg PO DAILY 11/11/20 cyclobenzaprine 5 mg tablet 5 mg PO BEDTIME 11/11/20 lisinopril 5 mg tablet 5 mg PO DAILY 11/11/20 loratadine 10 mg capsule 10 mg PO DAILY 11/11/20 Previous Rx's Medication Instructions Recorded doxycycline hyclate 100 mg capsule 100 mg PO BID 7 Days #14 cap 12/14/20 ibuprofen 600 mg tablet 600 mg PO Q6H PRN #14 tab 12/14/20 oxycodone-acetaminophen 5 mg-325 1 tab PO Q4-6H PRN #7 tab 12/14/20 mg tablet (Percocet) cephalexin 500 mg capsule 500 mg PO QID #28 cap 04/06/21 acetaminophen 500 mg tablet 500 mg PO Q6H PRN #20 tab 04/20/21 (Tylenol Extra Strength) bacitracin 500 unit/gram topical 1 appl TOPICAL BID #28 g 04/20/21 ointment doxycycline hyclate 100 mg tablet 100 mg PO BID 7 Days #14 tab 04/20/21 ibuprofen 800 mg tablet 800 mg PO Q8H PRN #14 tab 04/20/21 clindamycin HCl 300 mg capsule 300 mg PO Q6H 7 Days #28 cap 07/09/21 ibuprofen 600 mg tablet 600 mg PO Q8H PRN #20 tab 07/09/21 Allergies Allergy/AdvReac Type Severity Reaction Status Date / Time No Known Allergies Allergy Verified 05/18/21 21:53 Review of Systems Review of Systems: Constitutional: No Fever, No Chills ENT/Mouth: No sore throat, No Rhinorrhea, No Swallowing Difficulty, +dental pain, +facial swelling Cardiovascular: No Chest Pain, No SOB= Respiratory: No Cough, No Sputum Gastrointestinal: No Nausea, No Vomiting, No abdominal Pain Musculoskeletal: + joint pain, + Myalgias Skin: No Skin Lesions, No rash Neuro: No Dizziness, + Headache Heme/Lymph: No Bruising, No Lymphadenopathy PMFSH Past Medical History Medical History Anxiety Arthritis Depression Fibromyalgia Hypertension Surgical History History of breast augmentation Social History Social History Alcohol intake: unknown Advance Directives: No Current occupational status: disabled Current occupation: Right Handed Physical Exam Vital Signs: Vital Signs: Last Vital Signs Temp 97.5 F 07/09/21 09:04 Pulse 85 07/09/21 09:04 Resp 18 07/09/21 09:04 BP 150/95 H 07/09/21 09:04 Pulse Ox 100 07/09/21 09:04 Body Mass Index 20.5 Appearance: Alert. Oriented X3. No acute distress. Eyes: Pupils equal, round and reactive to light. ENT: left sided manidibular swelling, left lower molar broken to the level of the gum, blackened in the center, tender and swollen gum surrounding without area of fluctuance, pain with opening jaw, moist mucus membranes. multiple missing teeth Neck: Normal inspection. Neck supple. no lymphadenopathy, no anterior neck swelling. CVS: Normal heart rate and rhythm. Pulses normal. Respiratory: No respiratory distress. Breath sounds normal. Skin: Skin warm and dry. Normal skin color. Normal skin turgor. No rashes. Extremities: No lower extremity edema. Neuro: Oriented X 3. Nonfocal. Course Course Course Narrative: 50 y/o female presenting with acute onset of left lower facial swelling. Exam is consistent with dental infection and abscess. No area of fluctuance for drainage at this time. Will start PO abx and NSAIDs. Will have her follow up with dentist JESUS Sunday. She agrees with plan and will come back to the ER if swelling or pain worsen. Stable for d/c home. Discharge Plan Discharge Clinical Impression: Dental abscess Patient Disposition: Home, Self-Care Instructions: Dental Abscess (ED) Additional Instructions: Take the prescribed antibiotic as directed. Take the prescribed anti-inflammatory every 6-8 hours as needed for pain and swelling - take with food Continue to take acetamenophen 975 mg every 6 hours as needed for pain Recommend topical Orajel to help numb the area. Found over the counter. Call the dentists on the Emergency List provided first thing Sunday morning. If you develop new or worsening symptoms call 911 or come back to the ER for further evaluation. Prescriptions: New clindamycin HCl 300 mg capsule 300 mg PO Q6H 7 Days Qty: 28 RF: 0 ibuprofen 600 mg tablet 600 mg PO Q8H PRN (Reason: fever or pain) Qty: 20 RF: 0 No Action doxycycline hyclate 100 mg capsule 100 mg PO BID 7 Days Qty: 14 RF: 0 ibuprofen 600 mg tablet 600 mg PO Q6H PRN (Reason: pain) Qty: 14 RF: 0 oxycodone-acetaminophen [Percocet] 5-325 mg tablet 1 tab PO Q4-6H PRN (Reason: pain) Qty: 7 RF: 0 acetaminophen [Tylenol Extra Strength] 500 mg tablet 500 mg PO Q6H PRN (Reason: pain or fever) Qty: 20 RF: 0 doxycycline hyclate 100 mg tablet 100 mg PO BID 7 Days Qty: 14 RF: 0 ibuprofen 800 mg tablet 800 mg PO Q8H PRN (Reason: pain) Qty: 14 RF: 0 bacitracin 500 unit/gram ointment 1 appl topical BID Qty: 28 RF: 0 cephalexin 500 mg capsule 500 mg PO QID Qty: 28 RF: 0
== END 2021-07-09 09:31 | disposition home or self-care (01) ==
PROVIDERS: Emergency Provider Emergency Medicine; PCP Family Medicine
DX: K04.7 Periapical abscess without sinus (principal); Z79.899 Other long term (current) drug therapy
CPT/HCPCS: 99283

== ENCOUNTER 2021-07-10 01:07 | Emergency (ER) | payer MEDICAID, SELFPAY ==
[2021-07-10 01:40] VITALS: BP 120/72; PULSE 107; RESP 18; TEMP 36.6; O2SAT 100; BMI 20.5
--- NOTE | 2021-07-10 02:57 | PC.NURSE ---
PT LEFT, DID NOT WANT TO WAIT FOR MD. PT DISCHARGED FROM ER YESTERDAY. SAME COMPLAINT OF DENTAL.
--- NOTE | 2021-07-10 03:01 | PC.NURSE ---
PT RETURNED TO ROOM.
--- NOTE | 2021-07-10 03:18 | ED.DENTAL ---
HPI - Dental/Oral General Chief complaint: Dental/Oral Stated complaint: cyst Time Seen by Provider: 07/10/21 02:13 Source: patient Mode of arrival: ambulatory History of Present Illness HPI Narrative: 50-year-old male was seen here earlier in the day yesterday for dental abscess but no findings consistent with drainable pocket. Patient was discharged with antibiotics and states that he has started these. However, he states that he is having significant pain and is requesting lidocaine to help him until he sees a dentist on Sunday. Teeth map: 1. Related Data Home Medications Medication Instructions Recorded Confirmed acetaminophen 650 mg 650 mg PO Q8H 11/11/20 tablet,extended release (Tylenol 8 Hour) clonazepam 1 mg tablet 1 mg PO DAILY 11/11/20 cyclobenzaprine 5 mg tablet 5 mg PO BEDTIME 11/11/20 lisinopril 5 mg tablet 5 mg PO DAILY 11/11/20 loratadine 10 mg capsule 10 mg PO DAILY 11/11/20 Previous Rx's Medication Instructions Recorded doxycycline hyclate 100 mg capsule 100 mg PO BID 7 Days #14 cap 12/14/20 ibuprofen 600 mg tablet 600 mg PO Q6H PRN #14 tab 12/14/20 oxycodone-acetaminophen 5 mg-325 1 tab PO Q4-6H PRN #7 tab 12/14/20 mg tablet (Percocet) cephalexin 500 mg capsule 500 mg PO QID #28 cap 04/06/21 acetaminophen 500 mg tablet 500 mg PO Q6H PRN #20 tab 04/20/21 (Tylenol Extra Strength) bacitracin 500 unit/gram topical 1 appl TOPICAL BID #28 g 04/20/21 ointment doxycycline hyclate 100 mg tablet 100 mg PO BID 7 Days #14 tab 04/20/21 ibuprofen 800 mg tablet 800 mg PO Q8H PRN #14 tab 04/20/21 clindamycin HCl 300 mg capsule 300 mg PO Q6H 7 Days #28 cap 07/09/21 ibuprofen 600 mg tablet 600 mg PO Q8H PRN #20 tab 07/09/21 Allergies Allergy/AdvReac Type Severity Reaction Status Date / Time No Known Allergies Allergy Verified 05/18/21 21:53 Review of Systems Review of Systems: Pertinent positives and negatives as stated in HPI 10 point review of systems is otherwise negative. PMFSH Past Medical History Source: nursing notes reviewed Medical History Anxiety Arthritis Depression Fibromyalgia Hypertension Surgical History History of breast augmentation Social History Social History Alcohol intake: unknown Advance Directives: No Advance Directives Information Provided: No Current occupational status: disabled Current occupation: Right Handed Physical Exam Vital Signs: Vital Signs: Last Vital Signs Temp 97.8 F 07/10/21 01:40 Pulse 107 H 07/10/21 01:40 Resp 18 07/10/21 01:40 BP 120/72 07/10/21 01:40 Pulse Ox 100 07/10/21 01:40 Body Mass Index 20.5 VITAL SIGNS: Reviewed. GENERAL: Well developed, well nourished, in no acute distress. HEAD: Normocephalic/atraumatic EYES: PERRLA, EOMI OROPHARYNX: no oral lesions noted, posterior pharynx clear and non-erythematous without noted tonsillar enlargement/erythema/exudates, abscess noted at lower left jaw NECK: Supple, no adenopathy LUNGS: Normal breath sounds. No adventitious sounds or accessory muscle use. SpO2<100> CARDIOVASCULAR: Regular rate and rhythm without noted murmurs ABDOMEN: Soft, non-tender, non-distended with bowel sounds. NEUROLOGIC: Alert and oriented x 4. Course Course Course Narrative: 50-year-old male with history and clinical presentation consistent with dental abscess and will provide lidocaine injection as well as determine whether not any purulence substance can be removed. Patient received both a dental block as well as needle aspiration for approximately 5 cc of purulent discharge with immediate relief. Patient was then discharged home with instructions to follow-up with his antibiotics as well as a dentist. Procedures Abscess I/D Site: oral Side (if applicable): left Local Anesthetic: lidocaine 2% Amount of anesthesia used (mL): 1 Technique: needle aspiration Amount of fluid expressed (mL): 5 Sent for culture/gram staining?: No Irrigation: No Packing used?: none Discharge Plan Discharge Clinical Impression: Dental abscess Patient Disposition: Home, Self-Care Instructions: Dental Abscess (ED) Additional Instructions: Complete the entire course of antibiotics. Recommend [id number] Tylenol/ibuprofen as needed for pain control. Follow-up with a dentist on Sunday morning. Return to the ER for acute worsening of symptoms. Prescriptions: No Action doxycycline hyclate 100 mg capsule 100 mg PO BID 7 Days Qty: 14 RF: 0 ibuprofen 600 mg tablet 600 mg PO Q6H PRN (Reason: pain) Qty: 14 RF: 0 oxycodone-acetaminophen [Percocet] 5-325 mg tablet 1 tab PO Q4-6H PRN (Reason: pain) Qty: 7 RF: 0 acetaminophen [Tylenol Extra Strength] 500 mg tablet 500 mg PO Q6H PRN (Reason: pain or fever) Qty: 20 RF: 0 doxycycline hyclate 100 mg tablet 100 mg PO BID 7 Days Qty: 14 RF: 0 ibuprofen 800 mg tablet 800 mg PO Q8H PRN (Reason: pain) Qty: 14 RF: 0 bacitracin 500 unit/gram ointment 1 appl topical BID Qty: 28 RF: 0 clindamycin HCl 300 mg capsule 300 mg PO Q6H 7 Days Qty: 28 RF: 0 ibuprofen 600 mg tablet 600 mg PO Q8H PRN (Reason: fever or pain) Qty: 20 RF: 0 cephalexin 500 mg capsule 500 mg PO QID Qty: 28 RF: 0 Referrals: Mara Mariscal DO [Primary Care Provider] - 2 days
[2021-07-10] MEDS: Lidocaine HCl 2 % 20 ML VIAL 3 ML INFILTRATI (04:07)
[2021-07-10] MEDS: Acetaminophen 325 MG TABLET 650 MG PO (04:12)
[2021-07-10 04:52] VITALS: BP 124/72; PULSE 78; RESP 16; O2SAT 98
== END 2021-07-10 04:54 | disposition home or self-care (01) ==
PROVIDERS: Emergency Provider Student in an Organized Health Care Education/Training Program; PCP Family Medicine
DX: K04.7 Periapical abscess without sinus (principal); Z79.899 Other long term (current) drug therapy
CPT/HCPCS: 41800; 99284

== ENCOUNTER → 2021-12-28 13:32 | Outpatient (BNVA) | payer MEDICAID, SELFPAY | PROVIDERS: PCP Family Medicine; Referring Provider Family Medicine; Visit Provider Surgery | DX: Z80.0 Family history of malignant neoplasm of digestive organs (principal); M79.7 Fibromyalgia; I10 Essential (primary) hypertension; F41.8 Other specified anxiety disorders; Z79.899 Other long term (current) drug therapy | CPT/HCPCS: 99202 ==

== ENCOUNTER 2022-01-09 20:16 | Emergency (ER) | payer MEDICAID, SELFPAY ==
[2022-01-09 20:51] VITALS: BP 138/80; PULSE 85; RESP 19; TEMP 37.2; O2SAT 99; BMI 18.9
[2022-01-09 22:00] VITALS: BP 146/88; PULSE 88; RESP 15; TEMP 36.6; O2SAT 94
--- NOTE | 2022-01-10 00:53 | ED.DENTAL ---
HPI - Dental/Oral General Chief complaint: Dental/Oral Stated complaint: Facial swelling Time Seen by Provider: 01/10/22 00:49 Source: patient Mode of arrival: ambulatory Limitations: no limitations History of Present Illness HPI Narrative: This is a 51-year-old male presenting to the emergency department with complaints of dental abscess progressively worsening x2 days. Patient tells me that this is not the 1st time he has had a dental abscess. He reports pain and pressure to the left lower teeth. He tells me that this has been progressively worsening quickly. He was on antibiotics last week with little to no relief. He tells me know in his try draining it yet. He is speaking in full sentences, controlling secretions well, not complaining of changes in voice, shortness of breath, neck pain, nausea, vomiting, fevers chills, abdominal pain, chest pain MD Complaint: tooth pain Teeth map: 1. Location of abscess Onset (ago): day(s) (2) Duration: constant Severity: severe Relieving factors: nothing Exacerbating factors: nothing Context: history of dental caries and poor dental care Associated symptoms: gum swelling Treatment prior to arrival: none Related Data Home Medications Medication Instructions Recorded Confirmed acetaminophen 650 mg 650 mg PO Q8H 11/11/20 12/28/21 tablet,extended release (Tylenol 8 Hour) clonazepam 1 mg tablet 1 mg PO DAILY 11/11/20 12/28/21 cyclobenzaprine 5 mg tablet 5 mg PO BEDTIME 11/11/20 12/28/21 lisinopril 5 mg tablet 5 mg PO DAILY 11/11/20 12/28/21 loratadine 10 mg capsule 10 mg PO DAILY 11/11/20 12/28/21 Previous Rx's Medication Instructions Recorded doxycycline hyclate 100 mg capsule 100 mg PO BID 7 Days #14 cap 12/14/20 ibuprofen 600 mg tablet 600 mg PO Q6H PRN #14 tab 12/14/20 oxycodone-acetaminophen 5 mg-325 1 tab PO Q4-6H PRN #7 tab 12/14/20 mg tablet (Percocet) cephalexin 500 mg capsule 500 mg PO QID #28 cap 04/06/21 acetaminophen 500 mg tablet 500 mg PO Q6H PRN #20 tab 04/20/21 (Tylenol Extra Strength) bacitracin 500 unit/gram topical 1 appl TOPICAL BID #28 g 04/20/21 ointment doxycycline hyclate 100 mg tablet 100 mg PO BID 7 Days #14 tab 04/20/21 ibuprofen 800 mg tablet 800 mg PO Q8H PRN #14 tab 04/20/21 clindamycin HCl 300 mg capsule 300 mg PO Q6H 7 Days #28 cap 07/09/21 ibuprofen 600 mg tablet 600 mg PO Q8H PRN #20 tab 07/09/21 sodium,potassium,mag sulfates 17.5 See Rx Instructions PO .COMPLEX 12/28/21 gram-3.13 gram-1.6 gram oral soln #354 ml (Suprep Bowel Prep Kit) amoxicillin 875 mg-potassium 1 tab PO BID 10 Days #20 tab 01/10/22 clavulanate 125 mg tablet oxycodone 5 mg tablet 5 mg PO BID PRN #8 tab 01/10/22 Allergies Allergy/AdvReac Type Severity Reaction Status Date / Time No Known Allergies Allergy Verified 12/28/21 13:39 Review of Systems Review of Systems: Constitutional : No Weight loss, No Fever, No Chills, No Fatigue, No Malaise ENT/Mouth : No sore throat, No Rhinorrhea, + tooth pain, + abscess and mouth Eyes: No Eye Pain, No Swelling, No Redness Cardiovascular : No Chest Pain, No SOB, No Dyspnea on Exertion, No Orthopnea, No Edema, No Palpitations Respiratory : No Cough, No Sputum, No Wheezing Gastrointestinal : No Nausea, No Vomiting, No Diarrhea, No Constipation, No abdominal Pain, No Hematochezia, No Melena Genitourinary : No Dysuria, No Urinary Frequency, No Hematuria, Musculoskeletal : No joint pain, No Myalgias, No Joint Swelling Skin : No Skin Lesions, No rash Neuro : No Weakness, No Numbness, No Dizziness, No Headache Psych : No Anxiety/Panic, No Depression All other systems reviewed and are negative Yes all other systems are reviewed and are negative [facility] Past Medical History Attestation statement: The following information was validated with the patient. Source: old records reviewed and nursing notes reviewed Medical History Anxiety Arthritis Depression Family history of colon cancer Fibromyalgia Hypertension Surgical History History of breast augmentation Social History Social History Alcohol intake: unknown Advance Directives: No Current occupational status: disabled Current occupation: Right Handed Physical Exam Vital Signs: Vital Signs: Last Vital Signs Temp 97.8 F 01/09/22 22:00 Pulse 88 01/09/22 22:00 Resp 15 01/09/22 22:00 BP 146/88 H 01/09/22 22:00 Pulse Ox 94 01/09/22 22:00 BMI result Body Mass Index 18.9 Vital signs stable Appearance: Alert.? Oriented X3.? No acute distress.? Head: Normocephalic, atraumatic, no step-offs or deformities Eyes: Pupils equal, round and reactive to light.? ENT: Pharynx normal.?+ abscess to left lower teeth, around canine. overlying erythema and swelling. Neck: Normal inspection.? Neck supple.? CVS: Normal heart rate and rhythm.? Pulses normal.? Respiratory: No respiratory distress.? Breath sounds normal.? Abdomen: Soft and nontender.? Skin: Skin warm and dry.? Normal skin color.? Normal skin turgor.? Extremities: No lower extremity edema.? No calf ttp. 5/5 strength to bilateral upper and lower extremities Back: No midline tenderness, no C-spine tenderness, full range of motion, no CVA tenderness bilaterally Neuro: Oriented X 3.? No motor deficit.? No sensory deficit. CN 2-12 intact Course Reevaluation(s) Reevaluation #1: A successful incision and drainage was done at the bedside by using needle aspiration. Around 8 cc of purulence fluid was expressed from the area. Patient instantly noted improvement. Tolerated procedure well. No complications. Advised him to follow-up with dentist, and PCP. And return with new or worsening symptoms. Comfortable discharge Time: 00:57 MDM - Dental/Oral MDM Narrative Medical decision making narrative: 0055 51 yo m presents w/ dental abscess x2 days worsening. Physical examination large dental abscess to the left lower teeth around canine with overlying swelling erythema. Plan is incision and drainage Medical Records Attestation: I reviewed the patient's medical records. Lab Data Attestation: I reviewed the patient's lab results. Critical Care Time Critical Care Time Critical Care Time: No Discharge Plan Discharge Clinical Impression: Dental abscess, Toothache Patient Disposition: Home, Self-Care Instructions: Dental Abscess (ED), Toothache (ED), Abscess Incision and Drainage (DC) Additional Instructions: Take your medications as prescribed. If you were prescribed antibiotics today, it is important that you take your medication to their entirety, do not skip any doses, do not finish them early. Follow-up with your primary care provider this week. Follow-up with your dentist this week. Return to the emergency department with new or worsening symptoms. Such as fevers, chills, chest pain, shortness of breath, nausea, vomiting, dizziness, headache, vision changes, lethargy, difficulty speaking, difficulty controlling secretions, neck pain In case of emergency call 911 Prescriptions: New amoxicillin-pot clavulanate 875-125 mg tablet 1 tab PO BID 10 Days Qty: 20 0RF oxycodone 5 mg tablet 5 mg PO BID PRN (Reason: pain) Qty: 8 0RF Rx Instructions: Patient can partially filled prescription upon request No Action doxycycline hyclate 100 mg capsule 100 mg PO BID 7 Days Qty: 14 0RF ibuprofen 600 mg tablet 600 mg PO Q6H PRN (Reason: pain) Qty: 14 0RF oxycodone-acetaminophen [Percocet] 5-325 mg tablet 1 tab PO Q4-6H PRN (Reason: pain) Qty: 7 0RF acetaminophen [Tylenol Extra Strength] 500 mg tablet 500 mg PO Q6H PRN (Reason: pain or fever) Qty: 20 0RF doxycycline hyclate 100 mg tablet 100 mg PO BID 7 Days Qty: 14 0RF ibuprofen 800 mg tablet 800 mg PO Q8H PRN (Reason: pain) Qty: 14 0RF bacitracin 500 unit/gram ointment 1 appl topical BID Qty: 28 0RF clindamycin HCl 300 mg capsule 300 mg PO Q6H 7 Days Qty: 28 0RF ibuprofen 600 mg tablet 600 mg PO Q8H PRN (Reason: fever or pain) Qty: 20 0RF cephalexin 500 mg capsule 500 mg PO QID Qty: 28 0RF lisinopril 5 mg tablet 5 mg PO DAILY 0RF clonazepam 1 mg tablet 1 mg PO DAILY 0RF loratadine 10 mg capsule 10 mg PO DAILY 0RF cyclobenzaprine 5 mg tablet 5 mg PO BEDTIME 0RF acetaminophen [Tylenol 8 Hour] 650 mg tablet extended release 650 mg PO Q8H 0RF Suprep Bowel Prep Kit 17.5-3.13-1.6 gram recon soln See Rx Instructions PO .COMPLEX Qty: 354 0RF Rx Instructions: DILUTE; drink full amount early evening before AND next morning at least 2 hr before procedure; follow w 32 oz. water PO Referrals: Mara Mariscal DO [Primary Care Provider] - 2 days Stand Alone Forms: Work/School Release
== END 2022-01-10 01:13 | disposition home or self-care (01) ==
PROVIDERS: Emergency Provider Internal Medicine; PCP Family Medicine
DX: K04.7 Periapical abscess without sinus (principal); K08.89 Other specified disorders of teeth and supporting structures
CPT/HCPCS: 41800; 99283; 99284

== ENCOUNTER 2022-01-22 18:35 | Emergency (ER) | payer MEDICAID, SELFPAY ==
[2022-01-22 19:01] VITALS: BP 131/79; PULSE 74; RESP 18; TEMP 37; O2SAT 95; BMI 18.2
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
[2022-01-22 21:33] VITALS: BP 140/78; PULSE 69; RESP 18; TEMP 37.1; O2SAT 99
[2022-01-22] MEDS: Silver Sulfadiazine 1 % Cream 20 GM TUBE 1 APPL TOPICAL (21:39)
[2022-01-22] MEDS: traMADoL HCL 50 MG TABLET PO (21:39)
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
== END 2022-01-22 21:56 | disposition home or self-care (01) ==
PROVIDERS: Emergency Provider Internal Medicine; PCP Family Medicine
DX: T23.261A Burn of second degree of back of right hand, initial encounter (principal); T31.0 Burns involving less than 10% of body surface; X08.8XXA Exposure to other specified smoke, fire and flames, initial encounter; Y93.9 Activity, unspecified; Y92.9 Unspecified place or not applicable; Y99.9 Unspecified external cause status; F17.200 Nicotine dependence, unspecified, uncomplicated; Z71.6 Tobacco abuse counseling; F12.90 Cannabis use, unspecified, uncomplicated
CPT/HCPCS: 16000; 99284

== ENCOUNTER 2022-05-07 19:10 | Emergency (ER) | payer MEDICAID, SELFPAY ==
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
[2022-05-07 19:25] VITALS: BP 130/70; PULSE 80; O2SAT 98; BMI 19.3
[2022-05-07 20:10] VITALS: BP 137/80; PULSE 75; RESP 18; TEMP 36.6; O2SAT 98
[2022-05-07] MEDS: LORazepam 1 MG TABLET PO (20:23)
[2022-05-07 20:25] LABS: Basophils Percent Auto 0.3 % (0-2); Eosinophils Absolute Auto 0.1 X10*3/uL (0.0-0.4); Eosinophils Percent Auto 0.6 % (0-4); Hematocrit 34.3 % (42.0-52.0); Hemoglobin 11.5 g/dl (14.0-18.0); Imm Gran Abs Auto 0.03 X10*3/uL (0.00-0.03); Imm Gran Pct Auto 0.3 % (0.0-0.4); Lymphocytes Absolute Auto 1.9 X10*3/uL (1.2-4.9); MANUAL DIFF FLAG NO; Mean Corpuscular HGB Conc 33.5 g/dl (31.0-36.0); Mean Corpuscular Hemoglobin 33.5 pg (27.0-33.0); Mean Platelet Volume 8.5 fL (9.4-12.4); Monocytes Absolute Auto 0.5 X10*3/uL (0.1-1.2); Monocytes Percent Auto 5.7 % (2-11); Neutrophils Absolute Auto 6.2 x10*3/uL (2.0-8.3); Neutrophils Percent Auto 71.1 % (45-73); Platelet Count 226 X10*3/uL (160-400); Red Blood Count 3.43 X10*6/uL (4.60-5.80); White Blood Count 8.7 X10*3/uL (4.8-10.8)
[2022-05-07 20:40] LABS: Alanine Aminotransferase 19 U/L (0-40); Albumin Level 4.1 g/dL (3.5-5.0); Alkaline Phosphatase 54 U/L (39-117); Anion Gap 11 (12-20); Aspartate Amino Transferase 19 U/L (5-37); Bilirubin Direct 0.2 mg/dL (0.0-0.5); Bilirubin Total 0.4 mg/dL (0.0-1.0); Blood Urea Nitrogen 11 mg/dL (9-16); Calcium 8.7 mg/dL (8.4-10.2); Carbon Dioxide 29 mmol/L (22-29); Chloride 99 mmol/L (96-108); Estimated Glomerular Filt Rate > 60; Glucose Random 86 mg/dL (60-115); Lipase 44 U/L (8-78); Potassium 3.7 mmol/L (3.3-5.1); Sodium 135 mmol/L (135-145); Total Protein 6.2 g/dL (6.5-8.0)
[2022-05-07] MEDS: Acetaminophen 325 MG TABLET 650 MG PO (21:44)
--- NOTE | 2022-05-07 22:54 | PC.NURSE ---
attempted to discharge pt. pt extremely sleepy hard to awaken. provider is aware. RN Chiki aware. Will continue to monitor.
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
[2022-05-07] MEDS: Naloxone HCl Nasal 4 MG SPRAY NOSTRILALT (23:16)
[2022-05-07 23:32] VITALS: BP 105/70; PULSE 67; RESP 16; TEMP 36.4; O2SAT 97
[2022-05-07 23:35] LABS: Glucose, Whole Blood 96 mg/dL (60-115)
--- NOTE | 2022-05-07 23:40 | PC.NURSE ---
After being Narcan, a&o, able to ambulate to bathroom. pt given [place] and drink. Provider is aware. Will continue to monitor.
[2022-05-08 02:24] VITALS: RESP 20
[2022-05-08] MEDS: Naloxone HCl Nasal TAKE HOME 4 MG SPRAY NOSTRILALT (03:09)
== END 2022-05-08 03:19 | disposition home or self-care (01) ==
PROVIDERS: Emergency Provider Emergency Medicine; PCP Family Medicine
DX: S42.032A Displaced fracture of lateral end of left clavicle, initial encounter for closed fracture (principal); T50.901A Poisoning by unspecified drugs, medicaments and biological substances, accidental (unintentional), initial encounter; Y92.231 Patient bathroom in hospital as the place of occurrence of the external cause; S60.511A Abrasion of right hand, initial encounter; S90.414A Abrasion, right lesser toe(s), initial encounter; S40.212A Abrasion of left shoulder, initial encounter; S40.012A Contusion of left shoulder, initial encounter; S30.1XXA Contusion of abdominal wall, initial encounter; Y04.2XXA Assault by strike against or bumped into by another person, initial encounter; R10.9 Unspecified abdominal pain; F41.9 Anxiety disorder, unspecified; F64.0 Transsexualism; I10 Essential (primary) hypertension; F17.200 Nicotine dependence, unspecified, uncomplicated; F12.90 Cannabis use, unspecified, uncomplicated; Y93.89 Activity, other specified; Y92.481 Parking lot as the place of occurrence of the external cause; Y99.9 Unspecified external cause status
CPT/HCPCS: 36415; 73030; 74176; 80048; 80076; 82947; 83690; 85025; 99284

== ENCOUNTER 2022-05-28 10:13 | Emergency (ER) | payer MEDICAID, SELFPAY ==
[2022-05-28 10:56] VITALS: BP 142/91; PULSE 81; RESP 18; TEMP 36.9; O2SAT 98; BMI 19.8
--- NOTE | 2022-05-28 11:22 | ED_ITS ---
HPI - Dental/Oral General Chief complaint: Dental/Oral Stated complaint: Facial swelling Time Seen by Provider: 05/28/22 11:16 Source: patient Mode of arrival: ambulatory Limitations: no limitations History of Present Illness HPI Narrative: 51yoF presenting to the ED c c/o left lower dental pain/left facial pain sw elling for the past few days worse today. Reports has a Dentist appointment on 06/20/22. She denies any fevers, chills, trouble swallowing or breathing, trismus, change in voice, chest pain or shortness of breath, rashes or any other symptoms complaints or concerns at this time. MD Complaint: tooth pain Teeth map: 1. Onset (ago): day(s) (a few days worse today) Duration: worsening Severity: mild Relieving factors: nothing Exacerbating factors: chewing, cold and heat Context: history of dental caries and poor dental care Associated symptoms: other (left lower facial swelling) Treatment prior to arrival: other (Motrin/tykenol and no symptomatic relief) Related Data Home Medications Medication Instructions Recorded Confirmed acetaminophen 650 mg 650 mg PO Q8H 11/11/20 12/28/21 tablet,extended release (Tylenol 8 Hour) clonazepam 1 mg tablet 1 mg PO DAILY 11/11/20 01/30/22 cyclobenzaprine 5 mg tablet 5 mg PO BEDTIME 11/11/20 01/30/22 lisinopril 5 mg tablet 5 mg PO DAILY 11/11/20 01/30/22 loratadine 10 mg capsule 10 mg PO DAILY 11/11/20 01/30/22 Previous Rx's Medication Instructions Recorded sodium,potassium,mag sulfates 17.5 See Rx Instructions PO .COMPLEX 12/28/21 gram-3.13 gram-1.6 gram oral soln #354 mL (Suprep Bowel Prep Kit) peg 3350-electrolytes 236 240 ml PO Q10M #4,000 mL 03/23/22 gram-22.74 gram-6.74 gram-5.86 gram solution (Golytely) ibuprofen 600 mg tablet 600 mg PO Q6H PRN pain #30 tabs 05/07/22 amoxicillin 875 mg-potassium 1 tab PO BID 10 days #20 tabs 05/28/22 clavulanate 125 mg tablet ibuprofen 800 mg tablet 800 mg PO Q8H PRN pain #14 tabs 05/28/22 oxycodone 5 mg tablet 5 mg PO Q6H PRN pain #14 tabs 05/28/22 Allergies Allergy/AdvReac Type Severity Reaction Status Date / Time No Known Allergies Allergy Verified 12/28/21 13:39 Review of Systems Review of Systems: Constitutional : No Fever, No Chills, No changes in PO intake, No difficulty speaking, no recent dental procedure, no heat or cold intolerance while eating, no recent face trauma, ENT/Mouth : + Dental pain, No Sore throat, No Jaw pain, No throat swelling, No swallowing difficulty, no change in voice, + facial swelling, no drooling, no trismus, no bleeding, no lacerations, no tongue swelling, gum swelling, Eyes: No Eye Pain, No periorbital Swelling Cardiovascular : No Chest Pain, No SOB Respiratory : No Cough, No Sputum, No Wheezing, No Smoke Exposure, No Dyspnea Gastrointestinal : No Nausea, No Vomiting, No Diarrhea Genitourinary : No Dysuria Musculoskeletal : No Myalgias Skin : No rash, no facial swelling or redness, Neuro : No Weakness, No Numbness, No Headache Yes all other systems are reviewed and are negative [facility] Past Medical History Attestation statement: The following information was validated with the patient. Source: old records reviewed and nursing notes reviewed Medical History Anxiety Arthritis Depression Family history of colon cancer Fibromyalgia Hypertension Surgical History H/O colonoscopy History of breast augmentation Social History Social History Alcohol intake: current Alcohol intake frequency: a few times a month Alcohol type: beer and wine Patient Tobacco Use Status: Current everyday Tobacco user Substance Use Type: Marijuana Advance Directives: Yes Advance Directives Information Provided: Yes Advance Directives on File: No Current occupational status: disabled Current occupation: Right Handed Physical Exam Vital Signs: Vital Signs: Last Vital Signs Temp 98.4 F 05/28/22 10:56 Pulse 81 05/28/22 10:56 Resp 18 05/28/22 10:56 BP 142/91 H 05/28/22 10:56 Pulse Ox 98 05/28/22 10:56 O2 Del Method 05/28/22 10:56 BMI result Body Mass Index 19.8 vital signs have been reviewed as normal and appeared to be correct. Blood pressure normal. Heart rate normal. Respiration rate normal. Temperature normal. Oxygen saturation normal. Appearance: Alert. Oriented X3. No acute distress. Head: Normal external exam. Normocephalic. Atraumatic. Eyes: PERRLA. EOMI. Conjunctiva and sclera normal. Eyelids normal. ENT: EAC normal. TM's Normal. Pharynx normal. Uvula midline. Moist mucous membranes. No trismus noted. No drooling noted. No muffled voice noted. Dentition: Patient with poor dentition throughout with multiple old fractured teeth with multiple dental caries. Gingival within normal limits. No flu ctuance. Not consistent with peritonsillar abscess. Not consistent with dental abscess. No salivary duct obstruction noted. Neck: Normal inspection. Neck supple. FROM. No adenopathy. Thyroid Normal. No meningeal signs. No neck mass noted. Trachea midline. CVS: Normal heart rate and rhythm. Heart sound normal. No murmurs noted. Pulses normal throughout. Respiratory: No respiratory distress. Painless inspiration. Breath sounds normal. No wheezes/rales/rhonchi noted. Chest nontender. No accessory muscle usage noted or decreased air movement noted. Back: Full range of motion noted. Skin: Skin warm and dry. Normal skin color. Normal skin turgor. No rashes/lesions/lacerations noted. Extremities:Extremities exhibit normal range of motion. Extremities nontender. Neuro: Oriented X 3. No motor deficit. No sensory deficit. Reflexes normal. Course Course Course Narrative: Patient with poor dentition with multiple dental caries and old fractures. Mild left lower jaw swelling although no fluctuance not consistent with peritonsillar/pharyngeal/dental/gingival abscess. Patient tolerating secretions well. No trismus/drooling/stridor. Will DC home with antibiotics and symptomatic treatment instructions to follow-up with her oral surgeon on June 20 as scheduled. [facility] - Dental/Oral Medical Records Attestation: I reviewed the patient's medical records. Discharge Plan Discharge Clinical Impression: Dental caries, Toothache Patient Disposition: Home, Self-Care Instructions: Toothache (ED) Prescriptions: New amoxicillin-pot clavulanate 875-125 mg tablet 1 tab PO BID 10 Days Qty: 20 0RF ibuprofen 800 mg tablet 800 mg PO Q8H PRN (Reason: pain) Qty: 14 0RF oxycodone 5 mg tablet 5 mg PO Q6H PRN (Reason: pain) Qty: 14 0RF Rx Instructions: Partial Fill upon patient request. No Action peg 3350-electrolytes [Golytely] 236-22.74-6.74 -5.86 gram recon soln 240 ml PO Q10M Qty: 4000 0RF Rx Instructions: until fecal effluent is clear ibuprofen 600 mg tablet 600 mg PO Q6H PRN (Reason: pain) Qty: 30 0RF lisinopril 5 mg tablet 5 mg PO DAILY clonazepam 1 mg tablet 1 mg PO DAILY loratadine 10 mg capsule 10 mg PO DAILY cyclobenzaprine 5 mg tablet 5 mg PO BEDTIME acetaminophen [Tylenol 8 Hour] 650 mg tablet extended release 650 mg PO Q8H Suprep Bowel Prep Kit 17.5-3.13-1.6 gram recon soln See Rx Instructions PO .COMPLEX Qty: 354 0RF Rx Instructions: DILUTE; drink full amount early evening before AND next morning at least 2 hr before procedure; follow w 32 oz. water PO Referrals: Mara Mariscal DO [Primary Care Provider] - 2 days (your pcp) Interventions: ED Discharge Assessment Last Done: 05/28/22 11:31
== END 2022-05-28 11:32 | disposition home or self-care (01) ==
PROVIDERS: Emergency Provider Student in an Organized Health Care Education/Training Program; PCP Family Medicine
DX: K02.9 Dental caries, unspecified (principal)
CPT/HCPCS: 99283

== ENCOUNTER 2022-05-28 21:13 | Emergency (ER) | payer MEDICAID, SELFPAY ==
[2022-05-28 21:17] VITALS: BP 140/97; PULSE 91; RESP 18; TEMP 36.8; O2SAT 98; BMI 19.5
--- NOTE | 2022-05-28 22:47 | ED.DENTAL ---
HPI - Dental/Oral General Chief complaint: Skin/Abscess/Foreign Body Stated complaint: told to come back to drain Time Seen by Provider: 05/28/22 21:47 Source: patient Mode of arrival: ambulatory Limitations: no limitations History of Present Illness HPI Narrative: seen today started on augmentin for dental pain/caries now face more swollen asking for I/D of dental abscess Complaint: tooth pain Location: Tooth # () Onset (ago): day(s) (3) Duration: worsening Severity: moderate Relieving factors: nothing Exacerbating factors: chewing, cold and heat Context: history of dental caries Associated symptoms: gum swelling Treatment prior to arrival: other (started on augmentin) Related Data Home Medications Medication Instructions Recorded Confirmed acetaminophen 650 mg 650 mg PO Q8H 11/11/20 12/28/21 tablet,extended release (Tylenol 8 Hour) clonazepam 1 mg tablet 1 mg PO DAILY 11/11/20 01/30/22 cyclobenzaprine 5 mg tablet 5 mg PO BEDTIME 11/11/20 01/30/22 lisinopril 5 mg tablet 5 mg PO DAILY 11/11/20 01/30/22 loratadine 10 mg capsule 10 mg PO DAILY 11/11/20 01/30/22 Previous Rx's Medication Instructions Recorded sodium,potassium,mag sulfates 17.5 See Rx Instructions PO .COMPLEX 12/28/21 gram-3.13 gram-1.6 gram oral soln #354 mL (Suprep Bowel Prep Kit) peg 3350-electrolytes 236 240 ml PO Q10M #4,000 mL 03/23/22 gram-22.74 gram-6.74 gram-5.86 gram solution (Golytely) ibuprofen 600 mg tablet 600 mg PO Q6H PRN pain #30 tabs 05/07/22 amoxicillin 875 mg-potassium 1 tab PO BID 10 days #20 tabs 05/28/22 clavulanate 125 mg tablet ibuprofen 800 mg tablet 800 mg PO Q8H PRN pain #14 tabs 05/28/22 oxycodone 5 mg tablet 5 mg PO Q6H PRN pain #14 tabs 05/28/22 Allergies Allergy/AdvReac Type Severity Reaction Status Date / Time No Known Allergies Allergy Verified 05/28/22 21:17 Review of Systems Review of Systems: Constitutional : No Fever, No Chills ENT/Mouth : No swallowing difficulty, no change in voice, positive dental pain, positive jaw pain, positive facial swelling Eyes: No Eye Pain, No Swelling Cardiovascular : No Chest Pain, No SOB Respiratory : No Cough, No Sputum Gastrointestinal : No Nausea, No Vomiting, No Diarrhea Genitourinary : No Dysuria Musculoskeletal : No Myalgias Skin : No rash Neuro : No Weakness, No Numbness, No Headache PMF Past Medical History Attestation statement: The following information was validated with the patient. Medical History Anxiety Arthritis Depression Family history of colon cancer Fibromyalgia Hypertension Surgical History H/O colonoscopy History of breast augmentation Social History Social History Alcohol intake: current Alcohol intake frequency: a few times a month Alcohol type: beer and wine Patient Tobacco Use Status: Current everyday Tobacco user Substance Use Type: Marijuana Advance Directives: No Advance Directives Information Provided: No Current occupational status: disabled Current occupation: Right Handed Physical Exam Vital Signs: Vital Signs: Last Vital Signs Temp 98.2 F 05/28/22 21:17 Pulse 91 05/28/22 21:17 Resp 18 05/28/22 21:17 BP 140/97 H 05/28/22 21:17 Pulse Ox 98 05/28/22 21:17 O2 Del Method 05/28/22 21:17 BMI result Body Mass Index 19.5 Appearance: Alert. Oriented X3. No acute distress. Eyes: Pupils equal, round and reactive to light. ENT: Pharynx normal. L lower 1st molar small fluctuant area noted dental caries present no sublingual or submandibular swelling noted mild swelling noted anterior lower jaw Neck: Normal inspection. Neck supple. CVS: Normal heart rate and rhythm. Pulses normal. Respiratory: No respiratory distress. Abdomen: Soft and nontender. Skin: Skin warm and dry. Normal skin color. Extremities: No lower extremity edema. Neuro: Oriented X 3. No motor deficit. No sensory deficit. MDM - Dental/Oral MDM Narrative Medical decision making narrative: 51 yo female who was started on augmentin today for lower jaw pain and dental caries patient now has jaw swelling and needs I/D for dental abscess - no sublingual or submandibular swelling or evidence of deeper space infection, will aspirate localized area and continue antibiotics. Not toxic appearing Procedures Abscess I/D Site: oral Side (if applicable): left Local Anesthetic: other anesthetic (lollicaine) Technique: needle aspiration Amount of fluid expressed (mL): 1 Sent for culture/gram staining?: No Irrigation: No Packing used?: none Discharge Plan Discharge Clinical Impression: Abscess, dental Patient Disposition: Home, Self-Care Instructions: Dental Abscess (ED) Additional Instructions: return to ED for any worsening symptoms or concerns continue all antibiotics, use ice water if you experience bleeding please follow up with the oral surgeon Prescriptions: No Action peg 3350-electrolytes [Golytely] 236-22.74-6.74 -5.86 gram recon soln 240 ml PO Q10M Qty: 4000 0RF Rx Instructions: until fecal effluent is clear ibuprofen 600 mg tablet 600 mg PO Q6H PRN (Reason: pain) Qty: 30 0RF amoxicillin-pot clavulanate 875-125 mg tablet 1 tab PO BID 10 Days Qty: 20 0RF ibuprofen 800 mg tablet 800 mg PO Q8H PRN (Reason: pain) Qty: 14 0RF oxycodone 5 mg tablet 5 mg PO Q6H PRN (Reason: pain) Qty: 14 0RF Rx Instructions: Partial Fill upon patient request. lisinopril 5 mg tablet 5 mg PO DAILY clonazepam 1 mg tablet 1 mg PO DAILY loratadine 10 mg capsule 10 mg PO DAILY cyclobenzaprine 5 mg tablet 5 mg PO BEDTIME acetaminophen [Tylenol 8 Hour] 650 mg tablet extended release 650 mg PO Q8H Suprep Bowel Prep Kit 17.5-3.13-1.6 gram recon soln See Rx Instructions PO .COMPLEX Qty: 354 0RF Rx Instructions: DILUTE; drink full amount early evening before AND next morning at least 2 hr before procedure; follow w 32 oz. water PO
== END 2022-05-28 23:33 | disposition home or self-care (01) ==
PROVIDERS: Emergency Provider Emergency Medicine
DX: K04.7 Periapical abscess without sinus (principal)
CPT/HCPCS: 41800; 99283

== ENCOUNTER 2022-05-29 03:12 | Emergency (ER) | payer MEDICAID, SELFPAY ==
[2022-05-29 03:23] VITALS: BP 140/105; PULSE 101; RESP 20; TEMP 36.8; O2SAT 99; BMI 17.7
--- NOTE | 2022-05-29 03:31 | ED.DENTAL ---
HPI - Dental/Oral General Chief complaint: Dental/Oral Stated complaint: face swelling Time Seen by Provider: 05/29/22 03:17 Source: patient and old records reviewed Mode of arrival: ambulatory Limitations: no limitations History of Present Illness HPI Narrative: concerned dental abscess is bigger Location: Tooth # () Onset (ago): day(s) (3) Duration: intermittent Severity: moderate Relieving factors: prescription analgesics Exacerbating factors: chewing and cold Context: history of dental caries Associated symptoms: gum swelling Treatment prior to arrival: other (augmentin, just came in and had 1mL aspirated came back worried there is more swelling) Related Data Home Medications Medication Instructions Recorded Confirmed acetaminophen 650 mg 650 mg PO Q8H 11/11/20 12/28/21 tablet,extended release (Tylenol 8 Hour) clonazepam 1 mg tablet 1 mg PO DAILY 11/11/20 01/30/22 cyclobenzaprine 5 mg tablet 5 mg PO BEDTIME 11/11/20 01/30/22 lisinopril 5 mg tablet 5 mg PO DAILY 11/11/20 01/30/22 loratadine 10 mg capsule 10 mg PO DAILY 11/11/20 01/30/22 Previous Rx's Medication Instructions Recorded sodium,potassium,mag sulfates 17.5 See Rx Instructions PO .COMPLEX 12/28/21 gram-3.13 gram-1.6 gram oral soln #354 mL (Suprep Bowel Prep Kit) peg 3350-electrolytes 236 240 ml PO Q10M #4,000 mL 03/23/22 gram-22.74 gram-6.74 gram-5.86 gram solution (Golytely) ibuprofen 600 mg tablet 600 mg PO Q6H PRN pain #30 tabs 05/07/22 amoxicillin 875 mg-potassium 1 tab PO BID 10 days #20 tabs 05/28/22 clavulanate 125 mg tablet ibuprofen 800 mg tablet 800 mg PO Q8H PRN pain #14 tabs 05/28/22 oxycodone 5 mg tablet 5 mg PO Q6H PRN pain #14 tabs 05/28/22 Allergies Allergy/AdvReac Type Severity Reaction Status Date / Time No Known Allergies Allergy Verified 05/28/22 21:17 Review of Systems Review of Systems: Constitutional : No Fever, No Chills ENT/Mouth : No swallowing difficulty, no change in voice, positive dental pain, positive jaw pain, positive facial swelling Eyes: No Eye Pain, No Swelling Cardiovascular : No Chest Pain, No SOB Respiratory : No Cough, No Sputum Gastrointestinal : No Nausea, No Vomiting, No Diarrhea Genitourinary : No Dysuria Musculoskeletal : No Myalgias Skin : No rash Neuro : No Weakness, No Numbness, No Headache PMFSH Past Medical History Attestation statement: The following information was validated with the patient. Medical History Anxiety Arthritis Depression Family history of colon cancer Fibromyalgia Hypertension Surgical History H/O colonoscopy History of breast augmentation Social History Social History Alcohol intake: current Alcohol intake frequency: a few times a month Alcohol type: beer and wine Patient Tobacco Use Status: Current everyday Tobacco user Substance Use Type: Marijuana Advance Directives: No Advance Directives Information Provided: Yes Current occupational status: disabled Current occupation: Right Handed Physical Exam Vital Signs: Vital Signs: Last Vital Signs Temp 98.2 F 05/29/22 03:23 Pulse 101 H 05/29/22 03:23 Resp 20 05/29/22 03:23 BP 140/105 H 05/29/22 03:23 Pulse Ox 99 05/29/22 03:23 O2 Del Method 05/29/22 03:23 BMI result Body Mass Index 17.7 Appearance: Alert. Oriented X3. No acute distress. Eyes: Pupils equal, round and reactive to light. ENT: Pharynx normal. no sublingual or submandibular swelling very minimal increase in swelling left lower jaw Neck: Normal inspection. Neck supple. CVS: Pulses normal. Respiratory: No respiratory distress. Abdomen: Soft and nontender. Skin: Skin warm and dry. Normal skin color. Extremities: No lower extremity edema. Neuro: Oriented X 3. No motor deficit. No sensory deficit. MDM - Dental/Oral MDM Narrative Medical decision making narrative: 51 yo female with dental abscess s/p drainage earlier now with reported increase in size no sublingual or submandibular swelling - no signs of deeper space infection, patient very anxious at this time will attempt I/D one more time but I think this is just swelling and likely not collection of purulence Discharge Plan Discharge Clinical Impression: Dental abscess Patient Disposition: Home, Self-Care Instructions: Dental Abscess (ED), Abscess Incision and Drainage (DC) Additional Instructions: return to ED for any worsening symptoms or concerns please try to see a dentist as soon as possible finish all antibiotics Prescriptions: No Action peg 3350-electrolytes [Golytely] 236-22.74-6.74 -5.86 gram recon soln 240 ml PO Q10M Qty: 4000 0RF Rx Instructions: until fecal effluent is clear ibuprofen 600 mg tablet 600 mg PO Q6H PRN (Reason: pain) Qty: 30 0RF amoxicillin-pot clavulanate 875-125 mg tablet 1 tab PO BID 10 Days Qty: 20 0RF ibuprofen 800 mg tablet 800 mg PO Q8H PRN (Reason: pain) Qty: 14 0RF oxycodone 5 mg tablet 5 mg PO Q6H PRN (Reason: pain) Qty: 14 0RF Rx Instructions: Partial Fill upon patient request. lisinopril 5 mg tablet 5 mg PO DAILY clonazepam 1 mg tablet 1 mg PO DAILY loratadine 10 mg capsule 10 mg PO DAILY cyclobenzaprine 5 mg tablet 5 mg PO BEDTIME acetaminophen [Tylenol 8 Hour] 650 mg tablet extended release 650 mg PO Q8H Suprep Bowel Prep Kit 17.5-3.13-1.6 gram recon soln See Rx Instructions PO .COMPLEX Qty: 354 0RF Rx Instructions: DILUTE; drink full amount early evening before AND next morning at least 2 hr before procedure; follow w 32 oz. water PO
--- NOTE | 2022-05-29 03:31 | PC.NURSE ---
Pt a&o, no sob or chest pain. pt able to speak in full sentences. no air way obstruction. Provider into assess pt with PCT at the bedside. Will continue to monitor
[2022-05-29] MEDS: Lidocaine HCl 1 % MPF 5 ML VIAL SUBCUT (03:33)
[2022-05-29 03:47] VITALS: BP 134/76; PULSE 75; RESP 16; TEMP 37.1; O2SAT 98
== END 2022-05-29 04:04 | disposition home or self-care (01) ==
PROVIDERS: Emergency Provider Emergency Medicine
DX: K04.7 Periapical abscess without sinus (principal)
CPT/HCPCS: 41800; 99283; 99284

== ENCOUNTER 2022-06-14 09:27 | Outpatient (REF) | payer MEDICAID, SELFPAY ==
--- NOTE | ~2022-06-14 | XR_ITS ---
EXAMINATION: XR CLAVICLE, LEFT XR SHOULDER, LEFT CLINICAL INFORMATION: Pain. COMPARISON: None TECHNIQUE: Left clavicle 2 views. Left shoulder 3 views. FINDINGS: LEFT CLAVICLE: There is a lateral clavicular fracture with superior displacement of medial fragment. The lateral fragment aligned with AC joint. There is mild superior soft tissue swelling. LEFT SHOULDER: The glenohumeral joint space is maintained normal. Again visualized is lateral clavicular fracture with mild superior displacement of medial fragment. The soft tissues are normal. XR/XR clavicle LT IMPRESSION: Mildly displaced and superiorly displaced lateral clavicular fracture. The AC joint and the glenohumeral joint space is preserved. No additional fracture seen.
--- NOTE | ~2022-06-14 | XR_ITS ---
EXAMINATION: XR CLAVICLE, LEFT XR SHOULDER, LEFT CLINICAL INFORMATION: Pain. COMPARISON: None TECHNIQUE: Left clavicle 2 views. Left shoulder 3 views. FINDINGS: LEFT CLAVICLE: There is a lateral clavicular fracture with superior displacement of medial fragment. The lateral fragment aligned with AC joint. There is mild superior soft tissue swelling. LEFT SHOULDER: The glenohumeral joint space is maintained normal. Again visualized is lateral clavicular fracture with mild superior displacement of medial fragment. The soft tissues are normal. XR/XR shoulder LT min 2V IMPRESSION: Mildly displaced and superiorly displaced lateral clavicular fracture. The AC joint and the glenohumeral joint space is preserved. No additional fracture seen.
== END 2022-06-14 09:28 | disposition home or self-care (01) ==
LOC: HO.XRAY 09:27
PROVIDERS: PCP Family Medicine; Visit Provider Family Medicine
DX: M25.512 Pain in left shoulder (principal)
CPT/HCPCS: 73000; 73030

== ENCOUNTER 2022-07-10 12:18 | Outpatient (REF) | payer MEDICAID, SELFPAY | END 2022-07-10 12:19 | disposition home or self-care (01) | LOC: HO.HOSX 12:18 | PROVIDERS: Visit Provider Physician Assistant | DX: Z13.89 Encounter for screening for other disorder (principal) ==

== ENCOUNTER 2022-08-18 08:15 | Day surgery (SDC) | payer MEDICAID, SELFPAY ==
[2022-08-14 16:14] VITALS: BMI 18.5
[2022-08-18 09:50] VITALS: BMI 17.6
[2022-08-18 09:52] VITALS: BP 114/76; PULSE 70; RESP 18; TEMP 36.4; O2SAT 97
[2022-08-18] MEDS: Lactated Ringers 1,000 ML 100 ML IVCONT (10:23)
--- NOTE | 2022-08-18 10:42 | MHC.SHP ---
Pre-Procedural Eval Section A Date of Service: 08/18/22 Section B Chief Complaint: Family history of malignant neoplasm of digestive Details of Present Illness: Undergoes colonoscopies every 5 years because of a family history of colon cancer, last 1 was 5 years ago, no GI complaints Relevant Social History: None Present Medications: see Short Stay Collaborative assessment Medical History: Significant History ( family history of colon cancer) History of Previous Operations: No relevant previous surgery Allergies: Allergies Allergy/AdvReac Type Severity Reaction Status Date / Time No Known Allergies Allergy Verified 07/10/22 14:42 Review of Systems Sugical H&P ROS: Negative: Constitution, Cardiovascular, Respiratory, Neurological, Psychiatric, Hem-Onc, Allergic/Immunologic, Gastrointestinal, Genitourinary, Musculoskeletal, Integumentary, Endocrine and Eyes/Ears/Nose/Throat Exam Surgical H&P Exam: Normal: HEENT, Normal: Heart, Normal: Lungs, Normal: Extremities, Normal: Abdomen, Normal: Skin and Normal: Neurological Plan Diagnosis/Plan: Unchanged I have reviewed the history and physical and performed a pertinent physical examination on my patient. No changes have occurred unless specified.
--- NOTE | 2022-08-18 10:57 | HO.ANESPROP2 ---
HPI - Anesthesia Eval Consult details Narrative: 51 M for colonoscopy left clavicle fracture PMFSH Active Problems Active Problems: All Active Problems (Updated 05/30/22 @ 00:01 by Nirav Rinaldi) MCL sprain of left knee (Acute) Family history of colon cancer (Acute) Past Medical History Medical History Anxiety Arthritis Depression Family history of colon cancer Fibromyalgia Hypertension Functional capacity: independent ambulation Family History Family history of problems with anesthesia: No Surgical History Surgical History H/O colonoscopy History of breast augmentation History of Problems with Anesthesia: No Social History Social History Alcohol intake: current Alcohol intake frequency: a few times a month Alcohol type: beer and wine Patient Tobacco Use Status: Current everyday Tobacco user Substance Use Type: Marijuana Current occupational status: disabled Current occupation: Right Handed Meds Allergies Allergy/AdvReac Type Severity Reaction Status Date / Time No Known Allergies Allergy Verified 07/10/22 14:42 Active Medications: Current Medications Lactated Ringer's (Lr) 1,000 mls @ 100 mls/hr IVCONT .Q10H KACIE Last Admin: 08/18/22 10:23 Dose: 100 mls/hr Home Medications Medication Instructions Recorded Confirmed Last Taken Type acetaminophen 650 mg 650 mg PO Q8H 11/11/20 07/10/22 Unknown History tablet,extended release (Tylenol 8 Hour) clonazepam 1 mg tablet 1 mg PO DAILY 11/11/20 07/10/22 Unknown History cyclobenzaprine 5 mg tablet 5 mg PO BEDTIME 11/11/20 07/10/22 Unknown History lisinopril 5 mg tablet 5 mg PO DAILY 11/11/20 07/10/22 Unknown History loratadine 10 mg capsule 10 mg PO DAILY 11/11/20 07/10/22 Unknown History albuterol sulfate 90 mcg/actuation 2 puff inhalation Q4-6H PRN 07/10/22 07/10/22 Unknown History aerosol inhaler (ProAir HFA) Wheezing cholecalciferol (vitamin D3) 50 1 cap PO DAILY 07/10/22 07/10/22 Unknown History mcg (2,000 unit) capsule cyanocobalamin (vitamin B-12) 1 tab PO DAILY 07/10/22 07/10/22 Unknown History 1,000 mcg tablet duloxetine 60 mg capsule,delayed 2 cap PO DAILY 07/10/22 07/10/22 Unknown History release fluticasone propionate 110 1 puff inhalation BID 07/10/22 07/10/22 Unknown History mcg/actuation HFA aerosol inhaler (Flovent HFA) multivitamin-iron sulfate 15 1 tab PO DAILY 07/10/22 07/10/22 Unknown History mg-folic acid 400 mcg tablet (Tab-A-Douglas Multivitamin w-iron) tamsulosin 0.4 mg capsule 1 cap PO DAILY 07/10/22 07/10/22 Unknown History trazodone 50 mg tablet 1 tab PO BEDTIME 07/10/22 07/10/22 Unknown History Exam Exam Date and Time: August 18, 2022 1057 Height,Weight and Vital Signs: Height 5 ft 8 in Weight 52.617 kg Last Vital Signs Temp 97.5 F 08/18/22 09:52 Pulse 70 08/18/22 09:52 Resp 18 08/18/22 09:52 BP 114/76 08/18/22 09:52 Pulse Ox 97 08/18/22 09:52 O2 Del Method 08/18/22 09:52 Airway Mallampati Class: III TM Dist: >3cm Neck ROM: Full Loose/Missing/Broken Teeth: Yes (multiple missing teeth , extremely poor dentition ) Heart: S1,S2 Lungs: b/l breath sounds Assessment and Plan Assessment Anesthesia Assessment: Anesthesia Plan Discussed and Chart Reviewed Final Anesthetic Review Family History of Problems with Anesthesia: No History of Problems with Anesthesia: No NPO: Yes ASA Class: III Final Preanesthetic Review: Meds/Allgs Chart Reviewed, Consent Obtained/Reviewed and Anes Risks/Benef Reviewed Patient Risk: Intermediate Procedure Risk: Intermediate Anesthetic Plan Anesthetic Plan: MAC: Disposition: Standard PACU
--- NOTE | 2022-08-18 11:25 | W.PM.OPN ---
Operative Note Operative Note Date of Service: 08/18/22 Narrative: Preop diagnosis: Colon cancer screening for family history of colon cancer Postop diagnosis: Poor bowel prep, incomplete colonoscopy Procedure coloncolonoscopy to the transverse colon surgeon: Eber Ledbetter MD The patient is a 51-year-old female who was been undergoing colonoscopy every 5 years because of a family history of colon cancer. She understood the technique of colonoscopy and was aware of the risks, benefits, and alternatives She was brought to the operating room. She was placed in left lateral decubitus position under monitored anesthesia care. A full digital rectal exam was done. There were no palpable anal canal lesions. The tip of the Olympus colonoscope was gently introduced through the anal orifice advanced with insufflation. Immediately, we encountered thick stools in the rectum. We were able to still the scope all the way to the transverse colon however, was a heavy stool volume throughout the segments navigated so at this point at the transverse colon decided to abort the procedure. We withdrew the scope and again large amounts of stool were seen throughout the rest of the colon. There were no large lesions seen In view of this poor bowel prep, I would recommend repeating the colonoscopy with a better popped prep next time. We should do this the next few months. I will discuss this with her in the office.
[2022-08-18 11:37] VITALS: BP 101/72; PULSE 63; RESP 17; TEMP 36.2; O2SAT 97
[2022-08-18 11:52] VITALS: BP 115/70; PULSE 60; RESP 18; O2SAT 98
[2022-08-18 12:07] VITALS: BP 120/72; PULSE 59; RESP 18; O2SAT 97
[2022-08-18 12:25] VITALS: BP 116/71; PULSE 61; RESP 16; TEMP 36.6; O2SAT 100
== END 2022-08-18 12:55 | disposition home or self-care (01) ==
PROVIDERS: PCP Family Medicine; Visit Provider Surgery
DX: Z12.11 Encounter for screening for malignant neoplasm of colon (principal); Z80.0 Family history of malignant neoplasm of digestive organs; Z91.199 Patient's noncompliance with other medical treatment and regimen due to unspecified reason; I10 Essential (primary) hypertension; M79.7 Fibromyalgia; M19.90 Unspecified osteoarthritis, unspecified site; F32.A Depression, unspecified; F41.1 Generalized anxiety disorder; Z79.1 Long term (current) use of non-steroidal anti-inflammatories (NSAID); Z79.899 Other long term (current) drug therapy
CPT/HCPCS: 45378

== ENCOUNTER → 2022-10-02 09:29 | Outpatient (BNVA) | payer MEDICAID, SELFPAY | PROVIDERS: PCP Family Medicine; Visit Provider Surgery | DX: Z01.818 Encounter for other preprocedural examination (principal); Z80.0 Family history of malignant neoplasm of digestive organs | CPT/HCPCS: 99212 ==

== ENCOUNTER 2022-11-08 12:40 | Outpatient (REF) | payer MEDICAID, SELFPAY ==
--- NOTE | ~2022-11-08 | XR_ITS ---
EXAMINATION: XR CLAVICLE, LEFT CLINICAL INFORMATION: Reason for Exam M89.8X1 - Other specified disorders of bone, shoulder COMPARISON: Multiple prior radiographs most recent May 2022 and dating back to April 2022 TECHNIQUE: Two views of the left clavicle. FINDINGS: The displaced distal clavicular fracture is redemonstrated unchanged in alignment. No osseous bridging detected. Remaining bones joints and soft tissues unremarkable. XR/XR clavicle LT IMPRESSION: Nonunion/ununited left distal clavicle fracture
== END 2022-11-08 12:41 | disposition home or self-care (01) ==
LOC: HO.HOSX 12:40
PROVIDERS: PCP Family Medicine; Visit Provider Physician Assistant
DX: S42.002A Fracture of unspecified part of left clavicle, initial encounter for closed fracture (principal); M89.8X1 Other specified disorders of bone, shoulder
CPT/HCPCS: 73000; 99212

== ENCOUNTER 2023-01-02 07:11 | Day surgery (SDC) | payer MEDICAID, SELFPAY ==
[2023-01-02 07:18] VITALS: BMI 19.0
--- NOTE | 2023-01-02 07:20 | MHC.SHP ---
Pre-Procedural Eval Section A Date of Service: 01/02/23 Section B Chief Complaint: Family history of malignant neoplasm of digestive Details of Present Illness: has FH of colon cancer, no Gi complaints Relevant Family History (Specify if Yes): Yes Relevant Social History: None Present Medications: see Short Stay Collaborative assessment Medical History: Significant History History of Previous Operations: No relevant previous surgery Allergies: Allergies Allergy/AdvReac Type Severity Reaction Status Date / Time No Known Allergies Allergy Verified 01/02/23 07:16 Review of Systems Sugical H&P ROS: Negative: Constitution, Cardiovascular, Respiratory, Neurological, Psychiatric, Hem-Onc, Allergic/Immunologic, Gastrointestinal, Genitourinary, Musculoskeletal, Integumentary, Endocrine and Eyes/Ears/Nose/Throat Exam Surgical H&P Exam: Normal: HEENT, Normal: Heart, Normal: Lungs, Normal: Extremities, Normal: Abdomen, Normal: Skin and Normal: Neurological Plan Diagnosis/Plan: Unchanged I have reviewed the history and physical and performed a pertinent physical examination on my patient. No changes have occurred unless specified. Time Spent With Patient Time: Total time managing care of this patient today ____ minutes.
[2023-01-02 07:23] VITALS: BP 120/79; PULSE 69; RESP 16; TEMP 36.2; O2SAT 99
--- NOTE | 2023-01-02 07:24 | HO.ANESPROP2 ---
[facility] Active Problems Active Problems: All Active Problems (Updated 01/02/23 @ 07:17 by Geni Carter) MCL sprain of left knee (Acute) Fracture of clavicle, left, closed (Acute) Family history of colon cancer (Acute) Past Medical History Medical History Anxiety Arthritis Asthma Depression Family history of colon cancer Fibromyalgia Hypertension Family History Family history of problems with anesthesia: No Surgical History Surgical History H/O colonoscopy History of breast augmentation History of Problems with Anesthesia: No Social History Social History Alcohol intake: current Alcohol intake frequency: a few times a week Alcohol type: beer and wine Patient Tobacco Use Status: Current everyday Tobacco user Tobacco use type: Cigarette Cigarettes Per Day: 7 Years Smoked: 30 Smoked in Last 30 Days: Yes Use of substances other than those prescribed or required for medical reasons: Yes Substance Use Type: Marijuana Substance Use Frequency: Daily Are you DNR?: No Advance Directives: No Advance Directives Information Provided: Yes Current occupational status: disabled Current occupation: Right Handed Meds Allergies Allergy/AdvReac Type Severity Reaction Status Date / Time No Known Allergies Allergy Verified 01/02/23 07:16 Home Medications Medication Instructions Recorded Confirmed Last Taken Type acetaminophen 650 mg 650 mg PO Q8H 11/11/20 12/28/22 Unknown History tablet,extended release (Tylenol 8 Hour) clonazepam 1 mg tablet 1 mg PO DAILY 11/11/20 12/28/22 Unknown History cyclobenzaprine 5 mg tablet 5 mg PO BEDTIME 11/11/20 12/28/22 Unknown History lisinopril 5 mg tablet 5 mg PO DAILY 11/11/20 12/28/22 Unknown History loratadine 10 mg capsule 10 mg PO DAILY 11/11/20 12/28/22 Unknown History albuterol sulfate 90 mcg/actuation 2 puff inhalation Q4-6H PRN 07/10/22 12/28/22 Unknown History aerosol inhaler (ProAir HFA) Wheezing cholecalciferol (vitamin D3) 50 1 cap PO DAILY 07/10/22 12/28/22 Unknown History mcg (2,000 unit) capsule cyanocobalamin (vitamin B-12) 1 tab PO DAILY 07/10/22 12/28/22 Unknown History 1,000 mcg tablet duloxetine 60 mg capsule,delayed 2 cap PO DAILY 07/10/22 12/28/22 Unknown History release fluticasone propionate 110 1 puff inhalation BID 07/10/22 12/28/22 Unknown History mcg/actuation HFA aerosol inhaler (Flovent HFA) multivitamin-iron sulfate 15 1 tab PO DAILY 07/10/22 12/28/22 Unknown History mg-folic acid 400 mcg tablet (Tab-A-Douglas Multivitamin w-iron) tamsulosin 0.4 mg capsule 1 cap PO DAILY 07/10/22 12/28/22 Unknown History trazodone 50 mg tablet 1 tab PO BEDTIME 07/10/22 12/28/22 Unknown History diclofenac sodium 1 % topical gel 2 g topical BID 12/28/22 12/28/22 Unknown History doxepin 50 mg capsule 1 cap PO BEDTIME 12/28/22 12/28/22 Unknown History Exam Exam Date and Time: January 02, 2023 0724 Height,Weight and Vital Signs: Height 5 ft 8 in Weight 56.699 kg Last Vital Signs Temp 97.1 F 01/02/23 07:23 Pulse 69 01/02/23 07:23 Resp 16 01/02/23 07:23 BP 120/79 01/02/23 07:23 Pulse Ox 99 01/02/23 07:23 O2 Del Method 01/02/23 07:23 Airway Mallampati Class: II TM Dist: >3cm Neck ROM: Full Heart: RRR Lungs: CTA Assessment and Plan Final Anesthetic Review Family History of Problems with Anesthesia: No History of Problems with Anesthesia: No ASA Class: II Final Preanesthetic Review: Meds/Allgs Chart Reviewed, Consent Obtained/Reviewed and Anes Risks/Benef Reviewed Patient Risk: Low Procedure Risk: Low Anesthetic Plan Anesthetic Plan: MAC: Disposition: Standard PACU
--- NOTE | 2023-01-02 08:01 | W.PM.OPN ---
Operative Note Operative Note Date of Service: 01/02/23 Narrative: Preop diagnosis: Family history of colon cancer Postop diagnosis: Family history of colon cancer, with normal colonoscopy findings Procedure: Colonoscopy Surgeon: Eber Ledbetter MD The patient is a 52-year-old female with note of a family history of colon cancer here for screening colonoscopy. She understood the technique of the procedure. She was aware of the risks, benefits, and alternatives. The patient was brought to the operating room and placed in left lateral decubitus position under monitored anesthesia care. A surgical time-out was done. A full digital rectal exam was done and this did not reveal any significant anal lesions. The tip of the Olympus colonoscope was gently introduced through the anal orifice advanced with insufflation all the way to the cecum. The cecum was intubated. The cecum was identified by visualization of the ileocecal valve as well as the appendiceal orifice. The cecal mucosa was unremarkable. The scope was gradually withdrawn with careful examination of the entire colonic mucosa being done with scope withdrawal. The patient had adequate bowel prep so it was unlikely that any lesion may have been missed. The rectum was reached and there were no lesions seen. The anal canal was unremarkable. The scope was then withdrawn completely with desufflation . The patient tolerated the procedure well. There were no immediate complications. Her next colonoscopy may be in the next 5 years because of her family history.
[2023-01-02 08:05] VITALS: BP 81/50; PULSE 64; RESP 16; TEMP 36.4; O2SAT 98
[2023-01-02 08:19] VITALS: BP 114/75; PULSE 56; RESP 16; O2SAT 100
[2023-01-02 08:35] VITALS: BP 106/81; PULSE 66; RESP 16; O2SAT 100
--- NOTE | 2023-01-02 10:03 | HO.POSTANES ---
Post Anesthesia Evaluation Post Anesthesia Evaluation Vital Signs: Vital Signs Temp Pulse Resp BP Pulse Ox O2 Del Method 01/02/23 08:35 66 16 106/81 100 Room Air 01/02/23 08:19 56 16 114/75 100 Room Air 01/02/23 08:05 97.6 F 64 16 81/50 L 98 Room Air 01/02/23 07:23 97.1 F 69 16 120/79 99 Room Air Anesthesia: Monitored and General Mental Status: Awake Pain Control: Satisfactory Nausea/Vomiting: None Hydration: Adequate Anesthesia-Related Issues: No Anes. Related Issues
== END 2023-01-02 09:32 | disposition home or self-care (01) ==
PROVIDERS: PCP Family Medicine; Visit Provider Surgery
PROC: 0DJD8ZZ Inspection of Lower Intestinal Tract, Via Natural or Artificial Opening Endoscopic (ICD-10-PCS; CPT 45378; principal; 2023-01-02 08:20)
DX: Z12.11 Encounter for screening for malignant neoplasm of colon (principal); Z80.0 Family history of malignant neoplasm of digestive organs
CPT/HCPCS: 45378

== ENCOUNTER 2023-02-05 15:33 | Outpatient (REF) | payer MEDICAID, SELFPAY ==
--- NOTE | ~2023-02-05 | CT_ITS ---
EXAMINATION: CT SOFT TISSUE NECK WITH CONTRAST CLINICAL INFORMATION: Swelling under tongue. COMPARISON: CT cervical spine 07/01/2017. TECHNIQUE: Following the intravenous administration of 60 mL of Omnipaque 350 intravenous contrast, helical imaging was performed in the axial plane with generation of coronal and sagittal reformatted images. This CT examination was performed using dose optimization techniques as appropriate, variously including the following: *Automated exposure control *Adjustment of mA and/or kV according to patient size (this includes techniques or standardized protocols for targeted exams where dose is matched to indication/reason for exam; i.e. extremities or head) *Use of iterative reconstruction technique DLP: 222 mGy-cm FINDINGS: There is thickening and irregularity of the palatine tonsils. Parapharyngeal and retromaxillary fat is otherwise preserved. Draw Fire Operator spaces are symmetric. Parotid, submandibular, and sublingual glands are grossly symmetric. No identifiable enhancing tongue mass. The tongue base and epiglottis are unremarkable. Preepiglottic fat is preserved. Glottic and subglottic airways are normal. The thyroid gland is normal and the remainder of the visualized visceral soft tissues are normal. There are no pathologically enlarged cervical lymph nodes. No mediastinal or axillary adenopathy is visualized within the [id number] of this examination. Lung apices are clear. The aortic arch apex is normal. Cervical carotid and vertebral arteries are patent. Internal jugular veins fill symmetrically. Lung apices are clear. The patient is edentulous which represents a new finding when compared to prior imaging from 07/01/2017. There is no acute osseous finding. Specifically no worrisome lytic or blastic osseous lesion. Grossly no evidence of spinal canal compromise. The skull base is intact. Limited visualization of the intracranial anatomy reveals no abnormal finding. No mastoid middle ear effusion. No active paranasal sinus disease. CT/CT soft tissue neck w IV con IMPRESSION: There is thickening and irregularity of the palatine tonsils. The possibility of a mucosal mass cannot be definitively excluded on the basis of this examination. Direct visualization is recommended for better anatomic characterization of the mucosal anatomy. Otherwise no identifiable enhancing soft tissue mass or adenopathy.
[2023-02-05] MEDS: iohexoL 350 MG/ML 100 ML INFUS..BTL IV (16:34)
[2023-02-06 10:51] LABS: Creatinine POC 0.7 mg/dL (0.5-1.4); GFR POC > 60
== END 2023-02-05 15:34 | disposition home or self-care (01) ==
LOC: HO.CT 15:33
PROVIDERS: Visit Provider Family Medicine
DX: R22.0 Localized swelling, mass and lump, head (principal)
CPT/HCPCS: 70491; 82565; Q9967

== ENCOUNTER 2023-03-17 19:13 | Emergency (ER) | payer MEDICAID, SELFPAY ==
--- NOTE | ~2023-03-17 | XR_ITS ---
Examination: Right wrist and chest exam. CLINICAL HISTORY: Pain. TECHNIQUE: Chest 2 views. Right wrist 4 views. FINDINGS: CHEST: The lungs are well-expanded and clear of acute process. Heart size and pulmonary vascularity is normal. There is bilateral augmented breasts. There is mild dextroscoliosis of dorsolumbar spine. RIGHT WRIST: There is no visible acute fracture, dislocation or subluxation seen. The soft tissues are normal. XR/XR wrist RT min 3V IMPRESSION: Unremarkable right wrist. Unremarkable chest exam.
--- NOTE | ~2023-03-17 | XR_ITS ---
Examination: Right wrist and chest exam. CLINICAL HISTORY: Pain. TECHNIQUE: Chest 2 views. Right wrist 4 views. FINDINGS: CHEST: The lungs are well-expanded and clear of acute process. Heart size and pulmonary vascularity is normal. There is bilateral augmented breasts. There is mild dextroscoliosis of dorsolumbar spine. RIGHT WRIST: There is no visible acute fracture, dislocation or subluxation seen. The soft tissues are normal. XR/XR chest 2V IMPRESSION: Unremarkable right wrist. Unremarkable chest exam.
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
[2023-03-17 19:23] VITALS: BP 135/87; BP 154/92; PULSE 80; RESP 18; TEMP 36.7; O2SAT 96; O2SAT 97; BMI 19.6
[2023-03-17 19:29] VITALS: BP 135/87; PULSE 80; RESP 18; TEMP 36.7; O2SAT 97
[2023-03-17 19:49] LABS: MANUAL DIFF FLAG NO
[2023-03-17 19:53] LABS: Basophils Percent Auto 0.3 % (0-2); Eosinophils Absolute Auto 0.1 X10*3/uL (0.0-0.4); Eosinophils Percent Auto 0.8 % (0-4); Hematocrit 35.7 % (42.0-52.0); Hemoglobin 11.9 g/dl (14.0-18.0); Imm Gran Abs Auto 0.03 X10*3/uL (0.00-0.03); Imm Gran Pct Auto 0.3 % (0.0-0.4); Lymphocytes Absolute Auto 2.4 X10*3/uL (1.2-4.9); Mean Corpuscular HGB Conc 33.3 g/dl (31.0-36.0); Mean Corpuscular Hemoglobin 32.5 pg (27.0-33.0); Mean Corpuscular Volume 97.5 fL (80.0-98.0); Mean Platelet Volume 8.8 fL (9.4-12.4); Monocytes Absolute Auto 0.7 X10*3/uL (0.1-1.2); Monocytes Percent Auto 7.5 % (2-11); Neutrophils Absolute Auto 5.6 x10*3/uL (2.0-8.3); Neutrophils Percent Auto 64.1 % (45-73); Platelet Count 241 X10*3/uL (160-400); Red Blood Count 3.66 X10*6/uL (4.60-5.80); Red Cell Distribution Width 13.1 % (11.0-16.0); White Blood Count 8.7 X10*3/uL (4.8-10.8)
[2023-03-17 20:00] VITALS: BP 130/80; PULSE 74; RESP 16; TEMP 36.8; O2SAT 98
[2023-03-17 20:47] LABS: Alanine Aminotransferase 23 U/L (0-40); Albumin Level 3.7 g/dL (3.5-5.0); Alkaline Phosphatase 67 U/L (39-117); Anion Gap 8 (12-20); Aspartate Amino Transferase 20 U/L (5-37); Bilirubin Total 0.4 mg/dL (0.0-1.0); Blood Urea Nitrogen 13 mg/dL (9-16); Calcium 8.9 mg/dL (8.4-10.2); Carbon Dioxide 32 mmol/L (22-29); Chloride 105 mmol/L (96-108); Creatinine Clr Calc Pharmacy 82.9; Estimated Glomerular Filt Rate > 60; Glucose Random 103 mg/dL (60-115); Sodium 141 mmol/L (135-145); Total Protein 5.7 g/dL (6.5-8.0)
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
[2023-03-17 21:34] VITALS: BP 128/82; PULSE 65; RESP 16; TEMP 36.7; O2SAT 98
[2023-03-17] MEDS: Ketorolac Tromethamine 30 MG/ML VIAL IVPUSH (21:50)
== END 2023-03-17 22:59 | disposition home or self-care (01) ==
PROVIDERS: Emergency Provider Internal Medicine; PCP Family Medicine
DX: S09.90XA Unspecified injury of head, initial encounter (principal); S63.501A Unspecified sprain of right wrist, initial encounter; S00.12XA Contusion of left eyelid and periocular area, initial encounter; S20.412A Abrasion of left back wall of thorax, initial encounter; Y00.XXXA Assault by blunt object, initial encounter; F17.210 Nicotine dependence, cigarettes, uncomplicated; F12.90 Cannabis use, unspecified, uncomplicated; Y93.89 Activity, other specified; Y92.039 Unspecified place in apartment as the place of occurrence of the external cause; Y99.9 Unspecified external cause status; Z79.899 Other long term (current) drug therapy
CPT/HCPCS: 36415; 70450; 70486; 71046; 73110; 80053; 85025; 96374; 99284; J1885

== ENCOUNTER 2023-08-17 13:43 | Emergency (ER) | payer MEDICAID, SELFPAY ==
[2023-08-17 14:03] VITALS: BP 122/76; PULSE 88; RESP 19; TEMP 36.6; O2SAT 98; BMI 18.4
--- NOTE | 2023-08-17 14:03 | ED.GENADULT ---
HPI - General Adult General Chief complaint: Animal Bite Stated complaint: dog bite Time Seen by Provider: 08/17/23 14:07 Source: patient Mode of arrival: ambulatory Limitations: no limitations History of Present Illness HPI narrative: Patient is a 52 year old assigned male at , now woman, with no reported medical history presenting to the emergency department today for a rabies vaccination. Patient states that she was bit by a random dog last night on the left lower leg. Patient states that she saw her PCP who prescribed her Augmentin and recommended she come to the ER for a rabies shot. Patient denies any dizziness, lightheadedness, abdominal pain, nausea, vomiting, fever, chills, blurry vision, double vision, loss of vision, chest pain, difficulty breathing, shortness of breath, back pain, night sweats, pain with urination, increased urinary frequency, increased urinary urgency, blood in her urine or stool, syncope or a near syncopal episode, bowel incontinence, bladder incontinence, bowel retention, bladder retention, or any other complaints at this time. Onset (ago): day(s) (1) Location: left and lower extremity Severity: mild Severity scale (1-10): 3 Quality: aching and dull Pain Consistency: constant Relieving factors: none Exacerbating factors: none Associated symptoms: denies other symptoms Treatments prior to arrival: none Related Data Home Medications Medication Instructions Recorded Confirmed acetaminophen 650 mg 650 mg PO Q8H 11/11/20 12/28/22 tablet,extended release (Tylenol 8 Hour) clonazepam 1 mg tablet 1 mg PO DAILY 11/11/20 12/28/22 cyclobenzaprine 5 mg tablet 5 mg PO BEDTIME 11/11/20 12/28/22 lisinopril 5 mg tablet 5 mg PO DAILY 11/11/20 12/28/22 loratadine 10 mg capsule 10 mg PO DAILY 11/11/20 12/28/22 albuterol sulfate 90 mcg/actuation 2 puff inhalation Q4-6H PRN 07/10/22 12/28/22 aerosol inhaler (ProAir HFA) Wheezing cholecalciferol (vitamin D3) 50 1 cap PO DAILY 07/10/22 12/28/22 mcg (2,000 unit) capsule cyanocobalamin (vitamin B-12) 1 tab PO DAILY 07/10/22 12/28/22 1,000 mcg tablet duloxetine 60 mg capsule,delayed 2 cap PO DAILY 07/10/22 12/28/22 release fluticasone propionate 110 1 puff inhalation BID 07/10/22 12/28/22 mcg/actuation HFA aerosol inhaler (Flovent HFA) multivitamin-iron sulfate 15 1 tab PO DAILY 07/10/22 12/28/22 mg-folic acid 400 mcg tablet (Tab-A-Douglas Multivitamin w-iron) tamsulosin 0.4 mg capsule 1 cap PO DAILY 07/10/22 12/28/22 trazodone 50 mg tablet 1 tab PO BEDTIME 07/10/22 12/28/22 diclofenac sodium 1 % topical gel 2 g topical BID 12/28/22 12/28/22 doxepin 50 mg capsule 1 cap PO BEDTIME 12/28/22 12/28/22 Previous Rx's Medication Instructions Recorded ibuprofen 800 mg tablet 800 mg PO Q8H PRN pain #14 tabs 05/28/22 naproxen 500 mg tablet 500 mg PO BID PRN pain #20 tabs 03/17/23 Allergies Allergy/AdvReac Type Severity Reaction Status Date / Time No Known Allergies Allergy Verified 08/17/23 14:03 Review of Systems Constitutional: Constitutional: Reports no additional constitutional complaints, Denies chills, Denies fever(s) and Denies night sweats Eyes: Eyes: Reports no additional eye complaints, Denies blurry vision, Denies change in vision, Denies diplopia, Denies eye discharge, Denies loss of vision and Denies eye pain ENT: Denies dizziness Cardiovascular: Cardiovascular: Reports no additional cardiovascular complaints, Denies chest pain, Denies lightheadedness, Denies Loss of Consciousness and Denies dyspnea Respiratory: Respiratory: Reports no additional respiratory complaints and Denies dyspnea Gastrointestinal: Gastrointestinal: Reports no additional gastrointestinal complaints, Denies abdominal pain, Denies melena, Denies hematochezia, Denies change in bowel habits and Denies change in stool character Genitourinary: Genitourinary: Reports no additional male genitourinary complaints, Denies hematuria, Denies oliguria, Denies difficulty urinating, Denies dysuria, Denies urinary frequency, Denies urinary hesitancy, Denies urinary incontinence and Denies urinary urgency Musculoskeletal: Musculoskeletal: Reports no additional musculoskeletal complaints, Denies numbness and Denies tingling Integumentary/Breasts: Comments: abrasion to the left lower leg Neurologic: Denies dizziness, Denies loss of vision, Denies numbness and Denies tingling Psychiatric: Psychiatric: Reports no additional psychiatric complaints Endocrine: Endocrine: Reports no additional endocrine complaints Hematologic/Lymphatic: Hematologic/Lymphatic: Reports no additional hematologic/lymphatic complaints Allergic/Immunologic: Allergic/Immunologic: Reports no additional allergic/immunologic complaints [facility] Past Medical History Attestation statement: The following information was validated with the patient. Source: old records reviewed and nursing notes reviewed Medical History Asthma Family history of colon cancer Arthritis Anxiety Depression Hypertension Fibromyalgia Surgical History History of dental surgery H/O colonoscopy History of breast augmentation Social History Social History Alcohol intake: current Alcohol intake frequency: a few times a month Alcohol type: beer and wine Patient Tobacco Use Status: Current everyday Tobacco user Tobacco use type: Cigarette Cigarettes Per Day: 7 Years Smoked: 30 Substance Use Type: Marijuana Current occupational status: disabled Current occupation: Right Handed Physical Exam ED Vital Signs: Vital Signs - 24 hr 08/17/23 14:03 Temperature 98 F Pulse Rate 88 Respiratory Rate 19 Blood Pressure 122/76 Pulse Oximetry 98 Oxygen Delivery Method Room Air BMI result Body Mass Index 18.4 Const General: cooperative, no acute distress, alert and awake Nutritional Appearance: well nourished Orientation/consciousness: patient oriented x3 Limitations: no limitations [facility] Head: Yes normal to inspection and Yes atraumatic Ears: hearing grossly normal bilaterally and external ears normal General nose exam: Normal external nose present, no nasal discharge noted and no epistaxis Face and sinus: Yes normal facial exam, No abrasion and No laceration Mouth: Normal oral and palatal mucosa present, no drooling and no muffled voice Eyes General: appearance normal, both eyes and all related structures Periorbital: periorbital findings normal Eyelids: Yes eyelids normal Conjunctivae: conjunctivae normal Pupils: Equal, round and reactive pupils present EOM: EOMs intact bilaterally Neck Neck: Yes normal visual inspection, Yes full ROM and Yes no lymphadenopathy Chest Chest palpation & inspection: normal inspection of the chest Resp Effort & Inspection: normal respiratory effort and able to speak in complete sentences GI Inspection: Yes normal to inspection Neuro General: patient oriented x3 and moves all extremities Cranial nerves: Yes Equal, round and reactive pupils present Cognition (Neuro): normal cognition Motor exam (neuro): 5/5 motor strength present throughout Sensory Exam: Normal double simultaneous stimulation for sensation Coordination: [id number] test normal Extrem Other: small abrasion to the left anterior leg, no gaping, no active bleeding General: Yes full ROM and Yes capillary refill normal Psych Appearance: grossly normal Mental Status: mental status grossly normal Affect: normal affect Attitude: cooperative Thought process: Normal thought process present Thought content: Normal thought content present Insight: Good insight present (Psych) Course Course Course Narrative: RME performed by Shikha Thibodeaux PA-C. Patient is a 52 year old assigned female at presenting to the emergency department requesting a rabies shot. Patient placed back in the waiting room pending room availability. Rabies ordered. Medical Decision Making Medical Decision Making MDM Narrative: Patient is a 52 year old assigned male at , now a woman, with no reported medical history presenting to the emergency department today for a rabies vaccination. Patient's physical exam was as noted in the physical exam portion of this note. Patient left the department before completing treatment. Patient did not received her ordered rabies vaccination. Differential Diagnosis Differential Diagnoses: The differential diagnosis associated with the presentation includes Rabies vaccination Dog bite Discharge Plan Discharge Clinical Impression: Dog bite Patient Disposition: Left W/O Completing Treatment Prescriptions: No Action trazodone 50 mg tablet 1 tab PO BEDTIME cyanocobalamin (vitamin B-12) 1,000 mcg tablet 1 tab PO DAILY tamsulosin 0.4 mg capsule 1 cap PO DAILY albuterol sulfate [ProAir HFA] 90 mcg/actuation HFA aerosol inhaler 2 puff INHALATION Q4-6H PRN (Reason: Wheezing) fluticasone propionate [Flovent HFA] 110 mcg/actuation HFA aerosol inhaler 1 puff INHALATION BID duloxetine 60 mg capsule,delayed release(DR/EC) 2 cap PO DAILY cholecalciferol (vitamin D3) 50 mcg (2,000 unit) capsule 1 cap PO DAILY Tab-A-Douglas Multivitamin w-iron 15 mg iron- 400 mcg tablet 1 tab PO DAILY ibuprofen 800 mg tablet 800 mg PO Q8H PRN (Reason: pain) Qty: 14 0RF doxepin 50 mg capsule 1 cap PO BEDTIME diclofenac sodium 1 % gel 2 g topical BID naproxen 500 mg tablet 500 mg PO BID PRN (Reason: pain) Qty: 20 0RF lisinopril 5 mg tablet 5 mg PO DAILY clonazepam 1 mg tablet 1 mg PO DAILY loratadine 10 mg capsule 10 mg PO DAILY cyclobenzaprine 5 mg tablet 5 mg PO BEDTIME acetaminophen [Tylenol 8 Hour] 650 mg tablet extended release 650 mg PO Q8H
== END 2023-08-17 16:11 | disposition left against medical advice (07) ==
LOC: HO.ED 16:09
PROVIDERS: Emergency Provider Emergency Medicine; PCP Family Medicine
DX: S81.852A Open bite, left lower leg, initial encounter (principal); W54.0XXA Bitten by dog, initial encounter; Y93.9 Activity, unspecified; Y92.9 Unspecified place or not applicable; Y99.9 Unspecified external cause status
CPT/HCPCS: 99281

== ENCOUNTER 2023-08-20 13:45 | Emergency (ER) | payer MEDICAID, SELFPAY ==
[2023-08-20 14:00] VITALS: BP 147/98; PULSE 84; RESP 18; TEMP 36.1; O2SAT 99; BMI 18.4
--- NOTE | 2023-08-20 14:00 | ED_ITS ---
HPI - General Adult General Chief complaint: Animal Bite Stated complaint: dog bite Time Seen by Provider: 08/20/23 16:13 Source: patient Mode of arrival: ambulatory Limitations: no limitations History of Present Illness HPI narrative: Patient is a 52 year old assigned male at , now woman, with no reported medical history presenting to the emergency department today for a rabies vaccination. Patient states that she was bit by a random dog on 08/16/2023 on the left lower leg. Patient states that she saw her PCP who prescribed her Augmentin and recommended she come to the ER for a rabies shot. Patient states that she came on the but didn't want to continue waiting so she left. Patient denies any dizziness, lightheadedness, abdominal pain, nausea, vomiting, fever, chills, blurry vision, double vision, loss of vision, chest pain, difficulty breathing, shortness of breath, back pain, night sweats, pain with urination, increased urinary frequency, increased urinary urgency, blood in her urine or stool, syncope or a near syncopal episode, bowel incontinence, bladder incontinence, bowel retention, bladder retention, or any other complaints at this time. Relieving factors: none Exacerbating factors: none Associated symptoms: denies other symptoms Treatments prior to arrival: none Related Data Home Medications Medication Instructions Recorded Confirmed acetaminophen 650 mg 650 mg PO Q8H 11/11/20 12/28/22 tablet,extended release (Tylenol 8 Hour) clonazepam 1 mg tablet 1 mg PO DAILY 11/11/20 12/28/22 cyclobenzaprine 5 mg tablet 5 mg PO BEDTIME 11/11/20 12/28/22 lisinopril 5 mg tablet 5 mg PO DAILY 11/11/20 12/28/22 loratadine 10 mg capsule 10 mg PO DAILY 11/11/20 12/28/22 albuterol sulfate 90 mcg/actuation 2 puff inhalation Q4-6H PRN 07/10/22 12/28/22 aerosol inhaler (ProAir HFA) Wheezing cholecalciferol (vitamin D3) 50 1 cap PO DAILY 07/10/22 12/28/22 mcg (2,000 unit) capsule cyanocobalamin (vitamin B-12) 1 tab PO DAILY 07/10/22 12/28/22 1,000 mcg tablet duloxetine 60 mg capsule,delayed 2 cap PO DAILY 07/10/22 12/28/22 release fluticasone propionate 110 1 puff inhalation BID 07/10/22 12/28/22 mcg/actuation HFA aerosol inhaler (Flovent HFA) multivitamin-iron sulfate 15 1 tab PO DAILY 07/10/22 12/28/22 mg-folic acid 400 mcg tablet (Tab-A-Douglas Multivitamin w-iron) tamsulosin 0.4 mg capsule 1 cap PO DAILY 07/10/22 12/28/22 trazodone 50 mg tablet 1 tab PO BEDTIME 07/10/22 12/28/22 diclofenac sodium 1 % topical gel 2 g topical BID 12/28/22 12/28/22 doxepin 50 mg capsule 1 cap PO BEDTIME 12/28/22 12/28/22 Previous Rx's Medication Instructions Recorded ibuprofen 800 mg tablet 800 mg PO Q8H PRN pain #14 tabs 05/28/22 naproxen 500 mg tablet 500 mg PO BID PRN pain #20 tabs 03/17/23 Allergies Allergy/AdvReac Type Severity Reaction Status Date / Time No Known Allergies Allergy Verified 08/17/23 14:03 Review of Systems Constitutional: Constitutional: Reports no additional constitutional complaints, Denies chills, Denies fever(s) and Denies night sweats Eyes: Eyes: Reports no additional eye complaints, Denies blurry vision, Denies change in vision, Denies diplopia, Denies eye discharge, Denies loss of vision and Denies eye pain ENT: Denies dizziness Cardiovascular: Cardiovascular: Reports no additional cardiovascular complaints, Denies chest pain, Denies lightheadedness, Denies Loss of Consciousness and Denies dyspnea Respiratory: Respiratory: Reports no additional respiratory complaints and Denies dyspnea Gastrointestinal: Gastrointestinal: Reports no additional gastrointestinal complaints, Denies abdominal pain, Denies melena, Denies hematochezia, Denies change in bowel habits and Denies change in stool character Genitourinary: Genitourinary: Reports no additional male genitourinary complaints, Denies hematuria, Denies oliguria, Denies difficulty urinating, Denies dysuria, Denies urinary frequency, Denies urinary hesitancy, Denies urinary incontinence and Denies urinary urgency Musculoskeletal: Musculoskeletal: Reports no additional musculoskeletal complaints, Denies numbness and Denies tingling Neurologic: Denies dizziness, Denies loss of vision, Denies numbness and Denies tingling Psychiatric: Psychiatric: Reports no additional psychiatric complaints Endocrine: Endocrine: Reports no additional endocrine complaints Hematologic/Lymphatic: Hematologic/Lymphatic: Reports no additional hematologic/lymphatic complaints Allergic/Immunologic: Allergic/Immunologic: Reports no additional allergic/immunologic complaints [facility] Past Medical History Attestation statement: The following information was validated with the patient. Source: old records reviewed and nursing notes reviewed Medical History Asthma Family history of colon cancer Arthritis Anxiety Depression Hypertension Fibromyalgia Surgical History History of dental surgery H/O colonoscopy History of breast augmentation Social History Social History Alcohol intake: current Alcohol intake frequency: a few times a month Alcohol type: beer and wine Patient Tobacco Use Status: Current everyday Tobacco user Tobacco use type: Cigarette Cigarettes Per Day: 7 Years Smoked: 30 Substance Use Type: Marijuana Advance Directives: No Advance Directives Information Provided: No Current occupational status: disabled Current occupation: Right Handed Physical Exam ED Vital Signs: Vital Signs - 24 hr 08/20/23 14:00 Temperature 97 F Pulse Rate 84 Respiratory Rate 18 Blood Pressure 147/98 H Pulse Oximetry 99 Oxygen Delivery Method Room Air BMI result Body Mass Index 18.4 Const General: cooperative, no acute distress, alert and awake Nutritional Appearance: well nourished Orientation/consciousness: patient oriented x3 Limitations: no limitations HENMT Head: Yes normal to inspection and Yes atraumatic Ears: hearing grossly normal bilaterally and external ears normal General nose exam: Normal external nose present, no nasal discharge noted and no epistaxis Face and sinus: Yes normal facial exam, No abrasion and No laceration Mouth: Normal oral and palatal mucosa present, no drooling and no muffled voice Eyes General: appearance normal, both eyes and all related structures Periorbital: periorbital findings normal Eyelids: Yes eyelids normal Conjunctivae: conjunctivae normal Pupils: Equal, round and reactive pupils present EOM: EOMs intact bilaterally Neck Neck: Yes normal visual inspection, Yes full ROM and Yes no lymphadenopathy Chest Chest palpation & inspection: normal inspection of the chest Resp Effort & Inspection: normal respiratory effort and able to speak in complete sentences GI Inspection: Yes normal to inspection Neuro General: patient oriented x3 and moves all extremities Cranial nerves: Yes Equal, round and reactive pupils present Cognition (Neuro): normal cognition Motor exam (neuro): 5/5 motor strength present throughout Sensory Exam: Normal double simultaneous stimulation for sensation Coordination: [id number] test normal Extrem General: Yes normal to inspection, Yes full ROM and Yes capillary refill normal Psych Appearance: grossly normal Mental Status: mental status grossly normal Affect: normal affect Attitude: cooperative Thought process: Normal thought process present Thought content: Normal thought content present Insight: Good insight present (Psych) Course Course Course Narrative: RME performed by Shikha Thibodeaux PA-C. Patient is a 52 year old assigned male at , now woman, presenting to the emergency department needing rabies vaccination. Patient placed back in the waiting room pending room availability. Medical Decision Making Medical Decision Making MDM Narrative: Patient is a 52 year old assigned male at , now a woman, with no reported medical history presenting to the emergency department today for a rabies vaccination. Patient's physical exam was as noted in the physical exam portion of this note. Patient left the department before completing treatment. Patient did not receive her ordered rabies vaccination. Differential Diagnosis Differential Diagnoses: The differential diagnosis associated with the presentation includes Dog bite Rabies vaccination Discharge Plan Discharge Clinical Impression: Bite by animal Patient Disposition: Left W/O Completing Treatment Prescriptions: No Action trazodone 50 mg tablet 1 tab PO BEDTIME cyanocobalamin (vitamin B-12) 1,000 mcg tablet 1 tab PO DAILY tamsulosin 0.4 mg capsule 1 cap PO DAILY albuterol sulfate [ProAir HFA] 90 mcg/actuation HFA aerosol inhaler 2 puff INHALATION Q4-6H PRN (Reason: Wheezing) fluticasone propionate [Flovent HFA] 110 mcg/actuation HFA aerosol inhaler 1 puff INHALATION BID duloxetine 60 mg capsule,delayed release(DR/EC) 2 cap PO DAILY cholecalciferol (vitamin D3) 50 mcg (2,000 unit) capsule 1 cap PO DAILY Tab-A-Douglas Multivitamin w-iron 15 mg iron- 400 mcg tablet 1 tab PO DAILY ibuprofen 800 mg tablet 800 mg PO Q8H PRN (Reason: pain) Qty: 14 0RF doxepin 50 mg capsule 1 cap PO BEDTIME diclofenac sodium 1 % gel 2 g topical BID naproxen 500 mg tablet 500 mg PO BID PRN (Reason: pain) Qty: 20 0RF lisinopril 5 mg tablet 5 mg PO DAILY clonazepam 1 mg tablet 1 mg PO DAILY loratadine 10 mg capsule 10 mg PO DAILY cyclobenzaprine 5 mg tablet 5 mg PO BEDTIME acetaminophen [Tylenol 8 Hour] 650 mg tablet extended release 650 mg PO Q8H Discharge Date/Time: 08/20/23 16:15
== END 2023-08-20 16:15 | disposition left against medical advice (07) ==
PROVIDERS: Emergency Provider Emergency Medicine; PCP Family Medicine
DX: S81.852A Open bite, left lower leg, initial encounter (principal); W54.0XXA Bitten by dog, initial encounter; Y93.9 Activity, unspecified; Y92.9 Unspecified place or not applicable; Y99.9 Unspecified external cause status; Z20.3 Contact with and (suspected) exposure to rabies
CPT/HCPCS: 99281

== ENCOUNTER 2023-08-21 10:24 | Outpatient (REF) | payer MEDICAID, SELFPAY ==
--- NOTE | ~2023-08-21 | XR_ITS ---
EXAMINATION: XR HIP, LEFT CLINICAL INFORMATION: Pain COMPARISON: None available. TECHNIQUE: Two views of the left hip. FINDINGS: Alignment is anatomic. Mild degenerative changes with joint space narrowing and hypertrophic change at the left hip. Degenerative changes on limited views of the left sacroiliac joint. XR/XR hip LT min 2V IMPRESSION: 1. Mild degenerative changes left hip. 2. Degenerative changes on limited views of the left sacroiliac joint. Additional imaging with CT scan or MRI should be considered for better visualization as these modalities are much more sensitive for detection of fracture or other underlying pathology.
== END 2023-08-21 10:25 | disposition home or self-care (01) ==
LOC: HO.HHCX 10:24
PROVIDERS: Visit Provider Family Medicine
DX: M79.7 Fibromyalgia (principal); M25.552 Pain in left hip
CPT/HCPCS: 73502

== ENCOUNTER 2023-08-22 13:59 | Emergency (ER) | payer MEDICAID, SELFPAY | END 2023-08-22 15:02 | disposition left against medical advice (07) | PROVIDERS: Emergency Provider Emergency Medicine; PCP Family Medicine | DX: S81.852A Open bite, left lower leg, initial encounter (principal); W54.0XXA Bitten by dog, initial encounter; Y93.9 Activity, unspecified; Y92.9 Unspecified place or not applicable; Y99.9 Unspecified external cause status; Z20.3 Contact with and (suspected) exposure to rabies ==

== ENCOUNTER 2023-08-24 10:20 | Emergency (ER) | payer MEDICAID, SELFPAY ==
[2023-08-24 10:24] VITALS: BP 129/87; PULSE 79; RESP 18; O2SAT 98; BMI 18.7
--- NOTE | 2023-08-24 10:40 | ED.ANIMALBIT ---
HPI - Animal Bite General Chief Complaint: Animal Bite Stated Complaint: Dog bite Time Seen by Provider: 08/24/23 10:28 Source: patient Mode of arrival: ambulatory Limitations: no limitations History of Present Illness HPI narrative: patient is a 52-year-old female who presents emergency department for evaluation of a dog bite to the distal left lower extremity anteriorly. This happened 8 days ago. The dog was unknown/ vaccination status is unknown. Reports tetanus vaccine is up-to-date 2 years ago. She has come to the emergency department multiple times since the initial bite, has ultimately left without treatment from the waiting room due to prolonged wait times. She is requesting rabies vaccination at this time. She declines interest in oral antibiotics for infection prophylaxis. She denies fevers, chills, localized wound redness /swelling /warmth. She has no additional physical complaints at this time. Related Data Home Medications Medication Instructions Recorded Confirmed acetaminophen 650 mg 650 mg PO Q8H 11/11/20 12/28/22 tablet,extended release (Tylenol 8 Hour) clonazepam 1 mg tablet 1 mg PO DAILY 11/11/20 12/28/22 cyclobenzaprine 5 mg tablet 5 mg PO BEDTIME 11/11/20 12/28/22 lisinopril 5 mg tablet 5 mg PO DAILY 11/11/20 12/28/22 loratadine 10 mg capsule 10 mg PO DAILY 11/11/20 12/28/22 albuterol sulfate 90 mcg/actuation 2 puff inhalation Q4-6H PRN 07/10/22 12/28/22 aerosol inhaler (ProAir HFA) Wheezing cholecalciferol (vitamin D3) 50 1 cap PO DAILY 07/10/22 12/28/22 mcg (2,000 unit) capsule cyanocobalamin (vitamin B-12) 1 tab PO DAILY 07/10/22 12/28/22 1,000 mcg tablet duloxetine 60 mg capsule,delayed 2 cap PO DAILY 07/10/22 12/28/22 release fluticasone propionate 110 1 puff inhalation BID 07/10/22 12/28/22 mcg/actuation HFA aerosol inhaler (Flovent HFA) multivitamin-iron sulfate 15 1 tab PO DAILY 07/10/22 12/28/22 mg-folic acid 400 mcg tablet (Tab-A-Douglas Multivitamin w-iron) tamsulosin 0.4 mg capsule 1 cap PO DAILY 07/10/22 12/28/22 trazodone 50 mg tablet 1 tab PO BEDTIME 07/10/22 12/28/22 diclofenac sodium 1 % topical gel 2 g topical BID 12/28/22 12/28/22 doxepin 50 mg capsule 1 cap PO BEDTIME 12/28/22 12/28/22 Previous Rx's Medication Instructions Recorded ibuprofen 800 mg tablet 800 mg PO Q8H PRN pain #14 tabs 05/28/22 naproxen 500 mg tablet 500 mg PO BID PRN pain #20 tabs 03/17/23 Allergies Allergy/AdvReac Type Severity Reaction Status Date / Time No Known Allergies Allergy Verified 08/17/23 14:03 Review of Systems Review of Systems: Yes all other systems are reviewed and are negative [facility] Past Medical History Attestation statement: The following information was validated with the patient. Source: old records reviewed Medical History Asthma Family history of colon cancer Arthritis Anxiety Depression Hypertension Fibromyalgia Surgical History History of dental surgery H/O colonoscopy History of breast augmentation Social History Social History Alcohol intake: current Alcohol intake frequency: a few times a month Alcohol type: beer and wine Patient Tobacco Use Status: Current everyday Tobacco user Tobacco use type: Cigarette Cigarettes Per Day: 7 Years Smoked: 30 Substance Use Type: Marijuana Advance Directives: No Advance Directives Information Provided: Yes Current occupational status: disabled Current occupation: Right Handed Physical Exam ED Vital Signs: Vital Signs - 24 hr 08/24/23 10:24 Pulse Rate 79 Respiratory Rate 18 Blood Pressure 129/87 Pulse Oximetry 98 Oxygen Delivery Method Room Air BMI result Body Mass Index 18.7 Appearance: Alert.?Oriented to person, place and time. No acute distress.?Normal affect. Neck: Normal inspection.? Neck supple.?? CVS: Heart sounds normal. Normal heart rate and rhythm.? Pulses normal.?? Respiratory: No respiratory distress.? Lung sounds clear to auscultation bilaterally?? Skin: Skin warm and dry.? Normal skin color.? Distal left anterior lower extremity with 2 scabbed wounds without surrounding erythema warmth or swelling. Extremities: No lower extremity edema.? No calf ttp. 2+ DP/ PT pulse bilaterally. Neuro: Moves all extremities spontaneously. Sensation intact bilaterally. No focal neuro deficits. Ambulates with normal steady gait. Medical Decision Making Medical Decision Making [facility] Narrative: Patient is a 52-year-old female who presents emergency department for evaluation after a dog bite to the left lower extremity 8 days ago as per HPI. The wounds are healing at this time without localized cellulitis or signs of infection. Discussed prophylaxis with rabies vaccination x4 consecutive dosages and imunoglobulin. She is agreeable to treatment at this time. She declines prophylactic antibiotic, currently there is no signs of infection. We discussed worrisome signs and symptoms that would warrant re-evaluation. The extremities neurovascularly intact distally. She is able to weight bear and ambulate, below suspicion for any fracture or underlying osseous abnormality. Advised outpatient follow-up with PCP as needed. Stable for discharge. Differential Diagnosis Differential Diagnoses: The differential diagnosis associated with the presentation includes ( As noted above) External Record Review External record reviewed: Outpatient record and Prior outpatient labs Prescription Management I considered prescription management with: Antibiotic ( patient declined as per narrative above) Discharge Plan Discharge Clinical Impression: Dog bite Patient Disposition: Home, Self-Care Instructions: Rabies (ED), Animal Bite (ED) Additional Instructions: as discussed, it was recommended that you received preventative antibiotics to however declined. Please continue to monitor the wound and if you develop increasing redness, swelling, pain, discharge, then this should be re-evaluated. Received initial dosing of rabies vaccination and immunoglobulin while in the emergency department, please see the handout provided regarding subsequent rabies vaccination dosage is on day 3, day 7, day 14. Follow-up with your primary care provider as needed. Prescriptions: No Action trazodone 50 mg tablet 1 tab PO BEDTIME cyanocobalamin (vitamin B-12) 1,000 mcg tablet 1 tab PO DAILY tamsulosin 0.4 mg capsule 1 cap PO DAILY albuterol sulfate [ProAir HFA] 90 mcg/actuation HFA aerosol inhaler 2 puff INHALATION Q4-6H PRN (Reason: Wheezing) fluticasone propionate [Flovent HFA] 110 mcg/actuation HFA aerosol inhaler 1 puff INHALATION BID duloxetine 60 mg capsule,delayed release(DR/EC) 2 cap PO DAILY cholecalciferol (vitamin D3) 50 mcg (2,000 unit) capsule 1 cap PO DAILY Tab-A-Douglas Multivitamin w-iron 15 mg iron- 400 mcg tablet 1 tab PO DAILY ibuprofen 800 mg tablet 800 mg PO Q8H PRN (Reason: pain) Qty: 14 0RF doxepin 50 mg capsule 1 cap PO BEDTIME diclofenac sodium 1 % gel 2 g topical BID naproxen 500 mg tablet 500 mg PO BID PRN (Reason: pain) Qty: 20 0RF lisinopril 5 mg tablet 5 mg PO DAILY clonazepam 1 mg tablet 1 mg PO DAILY loratadine 10 mg capsule 10 mg PO DAILY cyclobenzaprine 5 mg tablet 5 mg PO BEDTIME acetaminophen [Tylenol 8 Hour] 650 mg tablet extended release 650 mg PO Q8H Referrals: Mara Mariscal DO [Primary Care Provider] -
[2023-08-24 11:06] VITALS: BP 127/77; PULSE 70; RESP 16; TEMP 36.3; O2SAT 99
[2023-08-24] MEDS: Rabies Immune Globulin/PF 900 UNIT/3 ML VIAL 1118 UNIT IM (11:18)
[2023-08-24] MEDS: Rabies Vaccine, Human Diploid (Imovax) 1 ML VIAL IM (11:20)
== END 2023-08-24 11:34 | disposition home or self-care (01) ==
PROVIDERS: Emergency Provider Emergency Medicine Emergency Medical Services; PCP Family Medicine
DX: S81.852A Open bite, left lower leg, initial encounter (principal); W54.0XXA Bitten by dog, initial encounter; Y93.9 Activity, unspecified; Y92.9 Unspecified place or not applicable; Y99.9 Unspecified external cause status; Z20.3 Contact with and (suspected) exposure to rabies
CPT/HCPCS: 90375; 90471; 90675; 96372; 99284

== ENCOUNTER 2023-08-27 10:03 | Outpatient (REF) | payer MEDICAID, SELFPAY | END 2023-08-27 10:04 | disposition home or self-care (01) | LOC: HO.MDS 10:03 | PROVIDERS: Visit Provider Nurse Practitioner Family | DX: Z20.3 Contact with and (suspected) exposure to rabies (principal); T14.8XXD Other injury of unspecified body region, subsequent encounter; W54.0XXD Bitten by dog, subsequent encounter | CPT/HCPCS: 90471; 90675 ==

== ENCOUNTER 2023-08-31 13:43 | Outpatient (REF) | payer MEDICAID, SELFPAY | END 2023-08-31 13:44 | disposition home or self-care (01) | LOC: HO.MDS 13:43 | PROVIDERS: Visit Provider Nurse Practitioner Family | DX: Z20.3 Contact with and (suspected) exposure to rabies (principal); T14.8XXD Other injury of unspecified body region, subsequent encounter; W54.0XXD Bitten by dog, subsequent encounter | CPT/HCPCS: 90471; 90675 ==

== ENCOUNTER 2023-09-07 13:38 | Outpatient (REF) | payer MEDICAID, SELFPAY | END 2023-09-07 13:39 | disposition home or self-care (01) | LOC: HO.MDS 13:38 | PROVIDERS: Visit Provider Nurse Practitioner Family | DX: Z20.3 Contact with and (suspected) exposure to rabies (principal); T14.8XXD Other injury of unspecified body region, subsequent encounter; W54.0XXD Bitten by dog, subsequent encounter | CPT/HCPCS: 90471; 90675 ==

== ENCOUNTER 2023-09-12 10:09 | Outpatient (REF) | payer MEDICAID, SELFPAY ==
[2023-09-12 11:08] LABS: MANUAL DIFF FLAG NO
[2023-09-12 11:53] LABS: Estimated Average Glucose 88 mg/dL; Hemoglobin A1c % 4.7 % (<6.0)
[2023-09-12 11:54] LABS: Basophils Percent Auto 0.6 % (0-2); Eosinophils Percent Auto 0.6 % (0-4); Hemoglobin 14.3 g/dl (14.0-18.0); Imm Gran Abs Auto 0.02 X10*3/uL (0.00-0.03); Imm Gran Pct Auto 0.3 % (0.0-0.4); Lymphocytes Absolute Auto 2.1 X10*3/uL (1.2-4.9); Lymphocytes Percent Auto 29.6 % (20-40); Mean Corpuscular HGB Conc 33.3 g/dl (31.0-36.0); Mean Corpuscular Hemoglobin 33.3 pg (27.0-33.0); Mean Corpuscular Volume 100.2 fL (80.0-98.0); Mean Platelet Volume 9.6 fL (9.4-12.4); Monocytes Absolute Auto 0.6 X10*3/uL (0.1-1.2); Monocytes Percent Auto 8.1 % (2-11); Neutrophils Absolute Auto 4.2 x10*3/uL (2.0-8.3); Neutrophils Percent Auto 60.8 % (45-73); Platelet Count 267 X10*3/uL (160-400); Red Blood Count 4.29 X10*6/uL (4.60-5.80); Red Cell Distribution Width 13.3 % (11.0-16.0)
[2023-09-12 12:20] LABS: Creatinine Urine 175.05 mg/dL; Microalbum/Creatinine Ratio Ur 43.4 ug/mg cr (<30)
[2023-09-12 13:59] LABS: Alanine Aminotransferase 17 U/L (0-40); Albumin Level 4.4 g/dL (3.5-5.0); Alkaline Phosphatase 59 U/L (39-117); Anion Gap 12 (12-20); Aspartate Amino Transferase 23 U/L (5-37); Bilirubin Direct 0.3 mg/dL (0.0-0.5); Bilirubin Total 0.8 mg/dL (0.0-1.0); Blood Urea Nitrogen 15 mg/dL (9-16); Calcium 9.3 mg/dL (8.4-10.2); Carbon Dioxide 28 mmol/L (22-29); Chloride 103 mmol/L (96-108); Cholesterol 192 mg/dL (<200); Estimated Glomerular Filt Rate > 60; Glucose Random 93 mg/dL (60-115); HDL Cholesterol 110 mg/dL (>40); LDL Cholesterol Calculated 65 mg/dL (<100); Potassium 4.4 mmol/L (3.3-5.1); Sodium 139 mmol/L (135-145); Total Protein 7.1 g/dL (6.5-8.0); Triglycerides 88 mg/dL (<150)
[2023-09-12 14:27] LABS: Free T4 (Free Thyroxine) 0.87 ng/dL (0.71-1.85); Thyroid Stimulating Hormone 1.65 uIU/mL (0.32-4.0); Vitamin D 25-OH Total 71.5 ng/mL (>30)
[2023-09-12 16:34] LABS: CT PCR NOT DETECTED (Not Detect.); NG PCR NOT DETECTED (Not Detect.)
[2023-09-13 08:34] LABS: Syphilis Screen Reactive (Nonreactive)
[2023-09-13 08:57] LABS: HBS Num1 16.25 mIU/mL (0-7.99); HBsAGNum1 0.29 S/CO (0.00-0.99); HIV AB/AG Nonreactive (Nonreactive); HIV Num 1 0.06 S/CO (0.00-0.99); Hepatitis B Surface Antigen Negative (Negative); ~HepC Num1 0.11 S/CO (0.00-0.79); ~Hepatitis B Surface Antibody REACTIVE (Nonreactive); ~Hepatitis C Antibody Nonreactive (Nonreactive)
[2023-09-19 15:25] LABS: RPR Quantitative Non-Reactive (Nonreactive); T.Pallidum Particle Agg Test Reactive (Nonreactive)
== END 2023-09-12 10:10 | disposition home or self-care (01) ==
LOC: HO.HHCL 10:09
PROVIDERS: Visit Provider Family Medicine
DX: Z11.4 Encounter for screening for human immunodeficiency virus [HIV] (principal); Z11.3 Encounter for screening for infections with a predominantly sexual mode of transmission; I10 Essential (primary) hypertension
CPT/HCPCS: 0353U; 80048; 80061; 80076; 82043; 82306; 82570; 83036; 84439; 84443; 85025; 86592; 86706; 86780; 86803; 87340; 87389

== ENCOUNTER 2023-12-20 16:13 | Outpatient (REF) | payer MEDICAID, SELFPAY ==
[2023-12-24 08:47] LABS: Nordiazepam, GCMS Urine NEGATIVE
[2023-12-24 08:48] LABS: Alphahydroxymidazolam,GCMS Ur NEGATIVE; Alphahydroxytriazolam, GCMS Ur NEGATIVE; Alprazolam, GCMS Urine NEGATIVE; Flurazepam Metabolite,GCMS Ur NEGATIVE; Lorazepam GCMS Urine NEGATIVE; Oxazepam, GCMS Urine NEGATIVE; Temazepam, GCMS Urine NEGATIVE
== END 2023-12-20 16:14 | disposition home or self-care (01) ==
LOC: HO.HHCLNP 16:13
PROVIDERS: Visit Provider Family Medicine
DX: F41.9 Anxiety disorder, unspecified (principal)
CPT/HCPCS: 80346

== ENCOUNTER 2024-03-07 10:38 | Outpatient (REF) | payer MEDICAID, SELFPAY ==
[2024-03-07 11:43] LABS: Hemoglobin 15.2 g/dl (14.0-18.0); Mean Platelet Volume 9.1 fL (9.4-12.4); Platelet Count 350 X10*3/uL (160-400); Red Cell Distribution Width 13.3 % (11.0-16.0); White Blood Count 9.6 X10*3/uL (4.8-10.8)
[2024-03-07 11:52] LABS: Estimated Average Glucose 94 mg/dL; Hemoglobin A1c % 4.9 % (<6.0)
[2024-03-07 12:31] LABS: Alanine Aminotransferase 29 U/L (0-40); Albumin Level 4.7 g/dL (3.5-5.0); Alkaline Phosphatase 76 U/L (39-117); Anion Gap 13 (12-20); Aspartate Amino Transferase 23 U/L (5-37); Bilirubin Direct 0.1 mg/dL (0.0-0.5); Bilirubin Total 0.3 mg/dL (0.0-1.0); Blood Urea Nitrogen 20 mg/dL (9-16); Carbon Dioxide 26 mmol/L (22-29); Chloride 103 mmol/L (96-108); Cholesterol 199 mg/dL (<200); Estimated Glomerular Filt Rate > 60; Glucose Random 94 mg/dL (60-115); HDL Cholesterol 103 mg/dL (>40); Iron 193 mcg/dL (45-160); LDL Cholesterol Calculated 84 mg/dL (<100); Percent Iron Saturation 58 % (15-50); Potassium 4.4 mmol/L (3.3-5.1); Sodium 138 mmol/L (135-145); Total Iron Binding Capacity 334 mcg/dL (228-428); Triglycerides 64 mg/dL (<150); Unsaturated Iron Binding 141 ug/dL
[2024-03-07 12:35] LABS: Ferritin 76 ng/mL (20-250); Free T4 (Free Thyroxine) 0.88 ng/dL (0.71-1.85); Vitamin D 25-OH Total 66.6 ng/mL (>30)
[2024-03-07 12:54] LABS: Folate 13.3 ng/mL (> or = 4.0); Vitamin B12 984 pg/mL (200-900)
[2024-03-07 13:13] LABS: CT PCR NOT DETECTED (Not Detect.); NG PCR NOT DETECTED (Not Detect.)
[2024-03-10 08:28] LABS: HBS Num1 3.16 mIU/mL (0-7.99); HBsAGNum1 0.26 S/CO (0.00-0.99); HIV AB/AG Nonreactive (Nonreactive); HIV Num 1 0.06 S/CO (0.00-0.99); Hepatitis B Surface Antigen Negative (Negative); ~HepC Num1 0.13 S/CO (0.00-0.79); ~Hepatitis B Surface Antibody NONREACTIVE (Nonreactive); ~Hepatitis C Antibody Nonreactive (Nonreactive)
[2024-03-10 17:14] LABS: RPR Rapid Plasma Reagin NON-REACTIVE (NON-REACTIVE)
[2024-03-12 12:34] LABS: Testosterone, Total 629 ng/dL (250-1100)
[2024-03-15 02:07] LABS: Estradiol Ultra Sensitive 18 pg/mL (< OR = 29)
== END 2024-03-07 10:39 | disposition home or self-care (01) ==
LOC: HO.HHCL 10:38
PROVIDERS: Visit Provider Family Medicine
DX: Z00.00 Encounter for general adult medical examination without abnormal findings (principal); I10 Essential (primary) hypertension; D64.9 Anemia, unspecified; M79.7 Fibromyalgia; J45.30 Mild persistent asthma, uncomplicated; F17.200 Nicotine dependence, unspecified, uncomplicated; J30.9 Allergic rhinitis, unspecified; R22.0 Localized swelling, mass and lump, head
CPT/HCPCS: 0353U; 36415; 80048; 80061; 80076; 82306; 82607; 82670; 82728; 82746; 83036; 83540; 84403; 84439; 84443; 85027; 86592; 86706; 86803; 87340; 87389

== ENCOUNTER 2024-05-07 14:03 | Outpatient (REF) | payer MEDICAID, SELFPAY ==
--- NOTE | ~2024-05-07 | XR_ITS ---
EXAMINATION: XR WRIST, LEFT CLINICAL INFORMATION: Wrist pain after falling COMPARISON: None available. TECHNIQUE: PA, lateral, and oblique views of the left wrist. FINDINGS: Very subtle vertical lucency seen through the distal radius extending to the radiocarpal joint space. I suspect this may reflect a hairline fracture. There is slight impaction of the distal radius as seen on the lateral view although joint effusion is not present. Distal ulna is intact. XR/XR wrist LT min 3V IMPRESSION: Query hairline nondisplaced distal radial fracture.
== END 2024-05-07 14:04 | disposition home or self-care (01) ==
LOC: HO.HHCX 14:03
PROVIDERS: Visit Provider Nurse Practitioner Family
DX: S69.92XD Unspecified injury of left wrist, hand and finger(s), subsequent encounter (principal)
CPT/HCPCS: 73110

== ENCOUNTER 2024-05-21 10:31 | Outpatient (REF) | payer MEDICAID, SELFPAY ==
[2024-05-21 11:54] LABS: Hematocrit 41.7 % (42.0-52.0); Hemoglobin 13.8 g/dl (14.0-18.0); Mean Corpuscular HGB Conc 33.1 g/dl (31.0-36.0); Mean Corpuscular Hemoglobin 33.1 pg (27.0-33.0); Mean Platelet Volume 9.6 fL (9.4-12.4); Platelet Count 219 X10*3/uL (160-400); Red Blood Count 4.17 X10*6/uL (4.60-5.80); Red Cell Distribution Width 13.9 % (11.0-16.0); White Blood Count 7.5 X10*3/uL (4.8-10.8)
[2024-05-21 14:16] LABS: Alanine Aminotransferase 19 U/L (0-40); Aspartate Amino Transferase 22 U/L (5-37); Blood Urea Nitrogen 13 mg/dL (9-16); Estimated Glomerular Filt Rate > 60
[2024-05-22 04:43] LABS: Syphilis Screen Reactive (Nonreactive)
[2024-05-22 05:13] LABS: HBS Num1 2.44 mIU/mL (0-7.99); HBc Num1 0.05 S/CO (0.00-0.79); Hepatitis B Core Antibody Nonreactive (Nonreactive); Hepatitis B Surface Antigen Negative (Negative); ~HepC Num1 0.17 S/CO (0.00-0.79); ~Hepatitis B Surface Antibody NONREACTIVE (Nonreactive); ~Hepatitis C Antibody Nonreactive (Nonreactive)
[2024-05-22 13:18] LABS: HIV RNA PCR Qn Copies NOT DETECTED copies/mL (NOT DETECTED); HIV RNA PCR Qn Log Copies NOT DETECTED (NOT DETECTED)
[2024-05-29 13:15] LABS: RPR Quantitative Non-Reactive (Nonreactive); T.Pallidum Particle Agg Test Reactive (Nonreactive)
== END 2024-05-21 10:32 | disposition home or self-care (01) ==
LOC: HO.HHCL 10:31
PROVIDERS: Visit Provider Advanced Practice Midwife
DX: Z79.899 Other long term (current) drug therapy (principal); Z20.6 Contact with and (suspected) exposure to human immunodeficiency virus [HIV]
CPT/HCPCS: 36415; 82565; 84450; 84460; 84520; 85027; 86592; 86704; 86706; 86780; 86803; 87340; 87536

== ENCOUNTER 2024-06-25 11:56 | Emergency (ER) | payer MEDICAID, SELFPAY ==
--- NOTE | ~2024-06-25 | XR_ITS ---
EXAMINATION: Left shoulder series. Left clavicle series. CLINICAL INFORMATION: Pain COMPARISON: X-rays of the left clavicle October 2022. X-ray of the left shoulder May 2022. TECHNIQUE: 2 views of the left clavicle. 3 views left shoulder. FINDINGS: Left clavicle and left shoulder: There is a persistent mildly displaced ununited distal clavicle fracture. There is some bone formation noted along the distal end of the clavicle is new compared to prior. No osseous continuity between the 2 fragments. The distal fragment is displaced caudally almost a full shaft's width relative to the proximal fragment. Glenohumeral joint normal. Acromioclavicular joint normal. XR/XR clavicle LT IMPRESSION: 1. Ununited distal clavicle fracture. 2. The fracture remains ununited dating back to May 2022.. Electronically signed by: Joss Bean MD 06/25/2024 04:07 PM EDT
--- NOTE | ~2024-06-25 | XR_ITS ---
EXAMINATION: XR CHEST CLINICAL INFORMATION: Chest pain. COMPARISON: March 17, 2023. TECHNIQUE: PA and lateral views of the chest were obtained. FINDINGS: Lateral view is limited by overlying arm. No gross focal infiltrate, effusion, or pneumothorax is seen. Pectus excavatum. Mild thoracic dextrocurvature. Bilateral breast prostheses. Cardiac silhouette is suboptimally evaluated. Mediastinum and diaphragm appear unremarkable. XR/XR chest 2V IMPRESSION: No acute finding. Electronically signed by: Chilo Go MD 06/25/2024 04:08 PM EDT
--- NOTE | ~2024-06-25 | XR_ITS ---
EXAMINATION: Left shoulder series. Left clavicle series. CLINICAL INFORMATION: Pain COMPARISON: X-rays of the left clavicle October 2022. X-ray of the left shoulder May 2022. TECHNIQUE: 2 views of the left clavicle. 3 views left shoulder. FINDINGS: Left clavicle and left shoulder: There is a persistent mildly displaced ununited distal clavicle fracture. There is some bone formation noted along the distal end of the clavicle is new compared to prior. No osseous continuity between the 2 fragments. The distal fragment is displaced caudally almost a full shaft's width relative to the proximal fragment. Glenohumeral joint normal. Acromioclavicular joint normal. XR/XR shoulder LT min 2V IMPRESSION: 1. Ununited distal clavicle fracture. 2. The fracture remains ununited dating back to May 2022.. Electronically signed by: Joss Bean MD 06/25/2024 04:07 PM EDT
--- NOTE | 2024-06-25 11:58 | ECG_ITS ---
Test Reason : PAIN Blood Pressure : / mmHG Vent. Rate : 089 BPM Atrial Rate : 089 BPM P-R Int : 140 ms QRS Dur : 074 ms QT Int : 342 ms P-R-T Axes : 070 -25 061 degrees QTc Int : 416 ms Normal sinus rhythm Biatrial enlargement Pulmonary disease pattern Abnormal ECG When compared with ECG of 23-JAN-2019 11:22, No significant change was found Referred By: Monik Molina Electronically Signed By:LISSY ALICIA
--- NOTE | 2024-06-25 12:11 | ED_ITS ---
HPI - General Adult General Chief complaint: Chest Pain Stated complaint: CP-l arm numb Time Seen by Provider: 06/25/24 13:47 History of Present Illness ED Provider: Clayton HARDEN narrative: For 3-year-old female presenting for left chest and left shoulder pain. Patient states that her symptoms began a while back however over the past few days she has noticed worsening pain to her left chest wall and left shoulder that radiates down her hand. She denies any recent trauma. She denies shortness of breath, fevers, chills, headache, nausea, vomiting, urinary symptoms. Related Data Home Medications ?Medication ?Instructions ?Recorded ?Confirmed acetaminophen 650 mg 650 mg PO Q8H 11/11/20 12/28/22 tablet,extended release (Tylenol 8 Hour) clonazepam 1 mg tablet 1 mg PO DAILY 11/11/20 12/28/22 cyclobenzaprine 5 mg tablet 5 mg PO BEDTIME 11/11/20 12/28/22 lisinopril 5 mg tablet 5 mg PO DAILY 11/11/20 12/28/22 loratadine 10 mg capsule 10 mg PO DAILY 11/11/20 12/28/22 albuterol sulfate 90 mcg/actuation 2 puff inhalation Q4-6H PRN 07/10/22 12/28/22 aerosol inhaler (ProAir HFA) Wheezing cholecalciferol (vitamin D3) 50 1 cap PO DAILY 07/10/22 12/28/22 mcg (2,000 unit) capsule cyanocobalamin (vitamin B-12) 1 tab PO DAILY 07/10/22 12/28/22 1,000 mcg tablet duloxetine 60 mg capsule,delayed 2 cap PO DAILY 07/10/22 12/28/22 release fluticasone propionate 110 1 puff inhalation BID 07/10/22 12/28/22 mcg/actuation HFA aerosol inhaler (Flovent HFA) multivitamin-iron sulfate 15 1 tab PO DAILY 07/10/22 12/28/22 mg-folic acid 400 mcg tablet (Tab-A-Douglas Multivitamin w-iron) tamsulosin 0.4 mg capsule 1 cap PO DAILY 07/10/22 12/28/22 trazodone 50 mg tablet 1 tab PO BEDTIME 07/10/22 12/28/22 diclofenac sodium 1 % topical gel 2 g topical BID 12/28/22 12/28/22 doxepin 50 mg capsule 1 cap PO BEDTIME 12/28/22 12/28/22 Previous Rx's ?Medication ?Instructions ?Recorded ibuprofen 800 mg tablet 800 mg PO Q8H PRN pain #14 tabs 05/28/22 naproxen 500 mg tablet 500 mg PO BID PRN pain #20 tabs 03/17/23 Allergies Allergy/AdvReac Type Severity Reaction Status Date / Time No Known Allergies Allergy Verified 06/25/24 12:14 Review of Systems 2 Review of Systems: Patient endorses Left chest wall pain, left shoulder pain Patient denies shortness of breath, abdominal pain, nausea, vomiting, urinary symptoms, headaches, neck pain, fevers, chills PMFSH Past Medical History Attestation statement: The following information was validated with the patient. PMFSH Narrative: Left clavicular fracture, MCL sprain, Medical History Asthma Family history of colon cancer Arthritis Anxiety Depression Hypertension Fibromyalgia Surgical History History of dental surgery H/O colonoscopy History of breast augmentation Social History Social History Alcohol intake: current Alcohol intake frequency: a few times a month Alcohol type: beer and wine Patient Tobacco Use Status: Current everyday Tobacco user Tobacco use type: Cigarette Cigarettes Per Day: 7 Years Smoked: 30 Smoked in Last 30 Days: Yes Use of substances other than those prescribed or required for medical reasons: No Substance Use Type: Marijuana Advance Directives: No Advance Directives Information Provided: No Do you have a plan to hurt others: No Plan Current occupational status: disabled Current occupation: Right Handed Physical Exam ED Vital Signs: Vital Signs - 24 hr 06/25/24 12:13 06/25/24 14:39 06/25/24 20:00 Temperature 98 F 98.6 F Pulse Rate 98 77 87 Respiratory Rate 19 20 20 Blood Pressure 116/72 105/71 121/85 Pulse Oximetry 98 99 99 Oxygen Delivery Method Room Air Room Air Room Air 06/25/24 20:25 Temperature 98.6 F Pulse Rate 87 Respiratory Rate 20 Blood Pressure 121/85 Pulse Oximetry 99 Oxygen Delivery Method Room Air BMI result Body Mass Index 19.6 Lungs clear to auscultation bilaterally Normal S1-S2 regular rate and rhythm Left shoulder tenderness to palpation; no appreciable deformity and neurovascularly intact left upper extremity Course Course Course Narrative: This is an RME done by TAVIA Molina: Additional HPI, ROS, PE not included below will be deferred to primary provider. 53 year old M to F presenting with concerns of chest pain (08/07) that began yesterday and has since migrated to the L arm. Pt states they are unable to move their left arm and has associated numbness. Pt has a hx of fibromyalgia and is utilizing multiple lidocaine patches along the L arm. Appearance: Alert.? Oriented X3.? No acute cardiopulmonary distress distress.? Head: Normocephalic, atraumatic, no step-offs or deformities Neck: Normal inspection.? Neck supple.? CVS: Pulses normal.? Respiratory: No respiratory distress.? Abdomen: Soft and nontender.? Skin: ? Normal skin color. Extremities: 5/5 strength to bilateral upper and lower extremities Neuro: Oriented X 3.? No motor deficit.? No sensory deficit. Medications Administered Discontinued Medications Generic Name Dose Route Start Last Admin Trade Name Freq PRN Reason Stop Dose Admin Ketorolac Tromethamine 15 mg 06/25/24 14:50 06/25/24 15:05 Ketorolac Tromethamine 15 Mg/Ml Vial IM 06/25/24 14:51 15 mg ONCE ONE Administration Lidocaine 1 patch 06/25/24 14:28 06/25/24 15:07 Lidocaine 4 % Patch Adh..Patch TRANSDERMA 06/25/24 14:29 1 patch ONCE ONE Administration Protocol Medical Decision Making Medical Decision Making [facility] Narrative: Concerns for the following; adhesive capsulitis, rotator cuff injury versus other soft tissue injury Less likely ACS, fracture/dislocation however will obtain appropriate and testing to rule out these diagnoses Patient's cardiac workup is unremarkable 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 I spoke to her about this and she states that she has never followed up with an orthopedic surgeon. I gave her an orthopedic provider follow-up with and instructed her to take Tylenol and ibuprofen for pain. I provide her a sling and told her to follow up with her PCP Differential Diagnosis Differential Diagnoses: The differential diagnosis associated with the presentation includes Ligament injury/tendon injury, fracture, shoulder dislocation, adhesive capsulitis Lab Data [facility] Lab Attestation statement: I reviewed the patient's lab results. Patient's troponins are flat, her H and H is stable, her BMP is unremarkable 06/25/24 12:12 06/25/24 12:12 Labs: Lab Results 06/25/24 06/25/24 Range/Units 12:12 18:45 WBC 10.7 (4.8-10.8) X10*3/uL RBC 4.10 L (4.60-5.80) X10*6/uL Hgb 13.8 L (14.0-18.0) g/dl Hct 40.6 L (42.0-52.0) % MCV 99.0 H (80.0-98.0) fL MCH 33.7 H (27.0-33.0) pg MCHC 34.0 (31.0-36.0) g/dl RDW 13.6 (11.0-16.0) % Plt Count 227 (160-400) X10*3/uL MPV 8.7 L (9.4-12.4) fL Immature Gran % (Auto) 0.2 (0.0-0.4) % Neut % (Auto) 65.8 (45-73) % Lymph % (Auto) 22.3 (20-40) % [place] % (Auto) 11.2 H (2-11) % Eos % (Auto) 0.3 (0-4) % Baso % (Auto) 0.2 (0-2) % Lymph # (Auto) 2.4 (1.2-4.9) X10*3/uL [place] # (Auto) 1.2 (0.1-1.2) X10*3/uL Eos # (Auto) 0.0 (0.0-0.4) X10*3/uL Baso # (Auto) 0.0 (0.0-0.2) X10*3/uL Abs Immat Gran (auto) 0.02 (0.00-0.03) X10*3/uL Absolute Neuts (auto) 7.0 (2.0-8.3) x10*3/uL Absolute Nucleated RBC 0.000 (0.0-0.012) X10*3/uL Nucleated RBC % (auto) 0.0 (0.0-0.2) /100WBC Sodium 138 (135-145) mmol/L Potassium 3.8 (3.3-5.1) mmol/L Chloride 101 (96-108) mmol/L Carbon Dioxide 31 H (22-29) mmol/L Anion Gap 10 L (12-20) BUN 15 (9-16) mg/dL Creatinine 1.10 (0.5-1.4) mg/dL Estim Creat Clear Calc 65.0 Estimated GFR > 60 Random Glucose 99 (60-115) mg/dL Calcium 9.8 (8.4-10.2) mg/dL Magnesium 2.0 (1.6-2.6) mg/dL Total Bilirubin 0.7 (0.0-1.0) mg/dL AST 17 (5-37) U/L ALT 38 (0-40) U/L Alkaline Phosphatase 70 (39-117) U/L Troponin I High Sens < 2.7 < 2.7 (<3.5-35.0) ng/L B-Natriuretic Peptide 19 (<100) pg/mL Total Protein 7.3 (6.5-8.0) g/dL Albumin 4.3 (3.5-5.0) g/dL Beta HCG, Quant < 2 mIU/mL Independent Interpretation I performed an independent interpretation of an: EKG and Plain X-Ray Interpretation: No signs of ischemia seen on EKG Patient's chest x-ray is unremarkable and does not show pneumothorax Patient's clavicular x-ray showed left clavicular fracture however this appears to be chronic Radiology Impression Discussion of test interpretation with radiology: I have reviewed the radiologist's reading. Radiologist Impression: Left clavicular fracture Discharge Plan Discharge Clinical Impression: Acute pain of left shoulder Patient Disposition: Home, Self-Care Additional Instructions: Please follow up with the orthopedic clinic for your chronic left clavicular fracture. Please also follow up with your PCP If you develop any new or worsening symptoms please seek immediate medical attention Prescriptions: No Action trazodone 50 mg tablet 1 tab PO BEDTIME cyanocobalamin (vitamin B-12) 1,000 mcg tablet 1 tab PO DAILY tamsulosin 0.4 mg capsule 1 cap PO DAILY albuterol sulfate [ProAir HFA] 90 mcg/actuation HFA aerosol inhaler 2 puff INHALATION Q4-6H PRN (Reason: Wheezing) fluticasone propionate [Flovent HFA] 110 mcg/actuation HFA aerosol inhaler 1 puff INHALATION BID duloxetine 60 mg capsule,delayed release(DR/EC) 2 cap PO DAILY cholecalciferol (vitamin D3) 50 mcg (2,000 unit) capsule 1 cap PO DAILY Tab-A-Douglas Multivitamin w-iron 15 mg iron- 400 mcg tablet 1 tab PO DAILY ibuprofen 800 mg tablet 800 mg PO Q8H PRN (Reason: pain) Qty: 14 0RF doxepin 50 mg capsule 1 cap PO BEDTIME diclofenac sodium 1 % gel 2 g topical BID naproxen 500 mg tablet 500 mg PO BID PRN (Reason: pain) Qty: 20 0RF lisinopril 5 mg tablet 5 mg PO DAILY clonazepam 1 mg tablet 1 mg PO DAILY loratadine 10 mg capsule 10 mg PO DAILY cyclobenzaprine 5 mg tablet 5 mg PO BEDTIME acetaminophen [Tylenol 8 Hour] 650 mg tablet extended release 650 mg PO Q8H Referrals: Francisco J Calvillo MD [Physician] - Interventions: ED Discharge Assessment Last Done: 06/25/24 20:25 Discharge Date/Time: 06/25/24 21:02 Print Language: Filipino
[2024-06-25 12:13] VITALS: BP 116/72; PULSE 98; RESP 19; TEMP 36.6; O2SAT 98; BMI 19.6
[2024-06-25 12:16] LABS: MANUAL DIFF FLAG NO
[2024-06-25 12:19] LABS: Basophils Percent Auto 0.2 % (0-2); Eosinophils Percent Auto 0.3 % (0-4); Hematocrit 40.6 % (42.0-52.0); Hemoglobin 13.8 g/dl (14.0-18.0); Imm Gran Abs Auto 0.02 X10*3/uL (0.00-0.03); Imm Gran Pct Auto 0.2 % (0.0-0.4); Lymphocytes Absolute Auto 2.4 X10*3/uL (1.2-4.9); Lymphocytes Percent Auto 22.3 % (20-40); Mean Corpuscular Hemoglobin 33.7 pg (27.0-33.0); Mean Platelet Volume 8.7 fL (9.4-12.4); Monocytes Absolute Auto 1.2 X10*3/uL (0.1-1.2); Monocytes Percent Auto 11.2 % (2-11); Neutrophils Percent Auto 65.8 % (45-73); Platelet Count 227 X10*3/uL (160-400); Red Cell Distribution Width 13.6 % (11.0-16.0); White Blood Count 10.7 X10*3/uL (4.8-10.8)
[2024-06-25 12:35] LABS: Alanine Aminotransferase 38 U/L (0-40); Albumin Level 4.3 g/dL (3.5-5.0); Alkaline Phosphatase 70 U/L (39-117); Anion Gap 10 (12-20); Aspartate Amino Transferase 17 U/L (5-37); Bilirubin Total 0.7 mg/dL (0.0-1.0); Blood Urea Nitrogen 15 mg/dL (9-16); Calcium 9.8 mg/dL (8.4-10.2); Carbon Dioxide 31 mmol/L (22-29); Chloride 101 mmol/L (96-108); Estimated Glomerular Filt Rate > 60; Glucose Random 99 mg/dL (60-115); Potassium 3.8 mmol/L (3.3-5.1); Sodium 138 mmol/L (135-145); Total Protein 7.3 g/dL (6.5-8.0)
[2024-06-25 12:41] LABS: B Type Natriuretic Peptide 19 pg/mL (<100)
[2024-06-25 12:42] LABS: Troponin-I High Sensitivity < 2.7 ng/L (<3.5-35.0)
--- NOTE | 2024-06-25 13:41 | PC.NURSE ---
patient arrives through external triage with cc of left sided chest pain that radiates up the neck and down the left arm, patient endorsing pain when moving and upon palpation. denies any shortness of breath or recent illness, patient holding arm close to body and wincing whenever touched or moved. patient describes sharp pain and pins and needles in fingertips. denies any recent heavy lifting or jerking motions or any recent injuries. NSR on monitor. blood work and EKG completed in triage. patient denies any significant medical history. awaiting MD woo
[2024-06-25 14:39] VITALS: BP 105/71; PULSE 77; RESP 20; O2SAT 99
[2024-06-25] MEDS: Ketorolac Tromethamine 15 MG/ML VIAL IM (15:05)
[2024-06-25] MEDS: Lidocaine 4 % Patch ADH..PATCH 1 PATCH TRANSDERMA (15:07)
[2024-06-25 15:21] LABS: HCG Quantitative < 2 mIU/mL
[2024-06-25 19:10] LABS: Troponin-I High Sensitivity < 2.7 ng/L (<3.5-35.0)
--- NOTE | 2024-06-25 19:39 | PC.NURSE ---
Pt ca&ox4, no signs of distress. Pt sitting up in bed, on cell phone. Pt reporting 8/10 left arm pain, cannot move arm. Plan of care ongoing.
[2024-06-25 20:00] VITALS: BP 121/85; PULSE 87; RESP 20; TEMP 37; O2SAT 99
[2024-06-25 20:25] VITALS: BP 121/85; PULSE 87; RESP 20; TEMP 37; O2SAT 99
== END 2024-06-25 21:02 | disposition home or self-care (01) ==
PROVIDERS: Physician Assistant; Emergency Provider Student in an Organized Health Care Education/Training Program
DX: M25.512 Pain in left shoulder (principal); R07.9 Chest pain, unspecified; Z79.899 Other long term (current) drug therapy
CPT/HCPCS: 36415; 71046; 73000; 73030; 80053; 83735; 83880; 84484; 84702; 85025; 93005; 96372; 99284; 99285; J1885

== ENCOUNTER 2024-07-04 09:53 | Outpatient (REF) | payer MEDICAID, SELFPAY ==
[2024-07-07 17:18] LABS: HIV RNA PCR Qn Copies NOT DETECTED copies/mL (NOT DETECTED); HIV RNA PCR Qn Log Copies NOT DETECTED (NOT DETECTED)
== END 2024-07-04 09:54 | disposition home or self-care (01) ==
LOC: HO.HHCL 09:53
PROVIDERS: Visit Provider Family Medicine
DX: Z79.899 Other long term (current) drug therapy (principal)
CPT/HCPCS: 36415; 87536

== ENCOUNTER 2024-07-23 08:47 | Outpatient (REF) | payer MEDICAID, SELFPAY ==
--- NOTE | ~2024-07-23 | XR_ITS ---
EXAMINATION: XR CLAVICLE, LEFT CLINICAL INFORMATION: M89.8X1 - Other specified disorders of bone, shoulder . Follow-up distal clavicular fracture with nonunion. COMPARISON: 06/23/2024, and dating back to 06/14/2022. TECHNIQUE: Two views of the left clavicle. FINDINGS: There is a chronic distal diaphyseal fracture of the clavicle, with corticated fracture margins and what appears to be complete nonunion. On the axial image, the clavicle appears completely separate from the distal fragment with mild inferior angulation. The glenohumeral joint is normal. The AC joint appears normal. Remainder of the bones and soft tissues appear normal. XR/XR clavicle LT IMPRESSION: 1. 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 Electronically signed by: Alejandro Berrios MD 09/29/2024 11:25 AM GONZALEZ
== END 2024-07-23 08:48 | disposition home or self-care (01) ==
LOC: HO.XRAY 08:47
PROVIDERS: PCP Family Medicine; Visit Provider Physician Assistant
DX: M75.22 Bicipital tendinitis, left shoulder (principal); S42.032K Displaced fracture of lateral end of left clavicle, subsequent encounter for fracture with nonunion
CPT/HCPCS: 73000; 99212

== ENCOUNTER → 2024-07-23 08:49 | Outpatient (BNV) | payer MEDICAID, SELFPAY | PROVIDERS: PCP Family Medicine; Visit Provider Radiology Diagnostic Radiology | DX: M89.8X1 Other specified disorders of bone, shoulder (principal) | CPT/HCPCS: 73000 ==

== ENCOUNTER 2024-07-23 09:13 | Outpatient (AMB) | payer MEDICAID, SELFPAY ==
--- NOTE | 2024-07-23 09:21 | A.OFFVIS_ITS ---
Intake Visit Reasons: OV- Left Shoulder pain ED f/u Intake Note: Linda is a 53 year old right hand dominant female who presents to the office today for left shoulder pain ED follow up. Pt states about 3 years ago she had a shoulder injury and states she was picking up plants with her left arm and states she started getting stabbing pain in her left shoulder down to her elbow. Pt states she did have numbness and tingling the day she went to the ED but states recently she hasnt had any pain. She states she was put in a sling at the ED which she wore for about 2 weeks. Allergies No Known Allergies Allergy (Verified 07/23/24 09:21) HPI HPI OV- Left Shoulder pain ED f/u: Details: 53-year-old right hand dominant female who returns to the office today for a follow-up of left shoulder pain. She reports she was picking up plants with her left arm when she felt a stabbing pain in her left shoulder that went down to her elbow. She also states she had numbness and tingling in her fingers and was seen at ED where she was placed in a sling. She currently states she has no pain in her ankle. [facility] Medical History Asthma Family history of colon cancer Arthritis Anxiety Depression Hypertension Fibromyalgia Surgical History History of dental surgery H/O colonoscopy History of breast augmentation Social History Alcohol intake: current Alcohol intake frequency: a few times a month Alcohol type: beer and wine Patient Tobacco Use Status: Current everyday Tobacco user Tobacco use type: Cigarette Cigarettes Per Day: 7 Years Smoked: 30 Substance Use Type: Marijuana Current occupational status: disabled Current occupation: Right Handed Review of Systems Const All systems reviewed & are unremarkable except as noted in HPI and below Physical Exam Extrem Other: Left shoulder: Normal to inspection. Tenderness over the proximal bicep tendon. No tenderness over the clavicle. No deformity. Forward flexion to 175, external rotation to 90, internal rotation to S1. 5/5 RTC strength. Negative Avila and cross body abduction. NVI. Results Reviewed Results Reviewed: xrays of the left clavicle obtained today show non union distal clavicle Assessment & Plan Assessment & Plan (1) Biceps tendonitis on left: Code(s): M75.22 - Bicipital tendinitis, left shoulder Category: Medical (2) Fracture of clavicle, left, closed: Code(s): S42.002A - Fracture of unspecified part of left clavicle, initial encounter for closed fracture Category: Medical Qualifiers: Encounter type: subsequent encounter Clavicle location: lateral end Fracture alignment: displaced Fracture healing: with nonunion Qualified Code(s): S42.032K - Displaced fracture of lateral end of left clavicle, subsequent encounter for fracture with nonunion Plan We discussed options which include PT, NSAIDs and injections. The patient will defer on the injection today and proceed with PT and NSAIDs. If symptoms persist, she will contact me for an injection, otherwise, PRN. Orders: Orders XR clavicle LT Today M89.8X1 - Other specified disorders of bone, shoulder PT Evaluation and Treatment Today M75.22 - Bicipital tendinitis, left shoulder Patient Instructions: Scribed for Ayaka Gotti PA-C, by Chace Benoit senior medical technologist, on 07/23/2024 at 9:30 AM EST.? I, Ayaka Gotti PA-C, have personally reviewed and agree with the information entered by the scribe. 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
== END 2024-07-23 09:47 | disposition home or self-care (01) ==
PROVIDERS: Visit Provider Physician Assistant
DX: M75.22 Bicipital tendinitis, left shoulder (principal); S42.032K Displaced fracture of lateral end of left clavicle, subsequent encounter for fracture with nonunion
CPT/HCPCS: 99213

== ENCOUNTER 2024-07-23 10:49 | Outpatient (REF) | payer MEDICAID, SELFPAY ==
[2024-07-23 14:22] LABS: Anion Gap 14 (12-20); Blood Urea Nitrogen 17 mg/dL (9-16); Calcium 9.9 mg/dL (8.4-10.2); Carbon Dioxide 27 mmol/L (22-29); Chloride 105 mmol/L (96-108); Cholesterol 183 mg/dL (<200); Estimated Glomerular Filt Rate > 60; Glucose Random 61 mg/dL (60-115); HDL Cholesterol 101 mg/dL (>40); LDL Cholesterol Calculated 66 mg/dL (<100); Potassium 4.6 mmol/L (3.3-5.1); Sodium 141 mmol/L (135-145); Triglycerides 82 mg/dL (<150); Vitamin D 25-OH Total 71.6 ng/mL (>30)
[2024-07-23 14:40] LABS: Creatinine Urine 162.13 mg/dL; Microalbum/Creatinine Ratio Ur 25.2 ug/mg cr (<30)
[2024-07-23 15:03] LABS: CT PCR NOT DETECTED (Not Detect.); NG PCR NOT DETECTED (Not Detect.)
[2024-07-24 05:41] LABS: HBS Num1 > 1000.00 mIU/mL (0-7.99); HBc Num1 0.06 S/CO (0.00-0.79); HBsAGNum1 0.51 S/CO (0.00-0.99); HIV AB/AG Nonreactive (Nonreactive); HIV Num 1 0.04 S/CO (0.00-0.99); Hepatitis A Antibody IgG REACTIVE (Nonreactive); Hepatitis B Core Antibody Nonreactive (Nonreactive); Hepatitis B Surface Antigen Negative (Negative); ~HepC Num1 0.13 S/CO (0.00-0.79); ~Hepatitis A Antibody IgG 1.89 S/CO (0.00-0.99); ~Hepatitis B Surface Antibody REACTIVE (Nonreactive); ~Hepatitis C Antibody Nonreactive (Nonreactive)
[2024-08-01 00:38] LABS: Estradiol Ultra Sensitive 20 pg/mL (< OR = 29)
== END 2024-07-23 10:50 | disposition home or self-care (01) ==
LOC: HO.HHCL 10:49
PROVIDERS: Visit Provider Family Medicine
DX: I10 Essential (primary) hypertension (principal); D64.9 Anemia, unspecified
CPT/HCPCS: 36415; 80048; 80061; 82043; 82306; 82570; 82670; 86704; 86706; 86708; 86803; 87340; 87389; 87491; 87591

== ENCOUNTER 2024-11-11 10:47 | Outpatient (REF) | payer MEDICAID, SELFPAY ==
[2024-11-11 11:29] LABS: Hematocrit 46.4 % (42.0-52.0); Hemoglobin 16.1 g/dl (14.0-18.0); Mean Corpuscular HGB Conc 34.7 g/dl (31.0-36.0); Mean Corpuscular Hemoglobin 33.6 pg (27.0-33.0); Mean Corpuscular Volume 96.9 fL (80.0-98.0); Mean Platelet Volume 9.1 fL (9.4-12.4); Platelet Count 262 X10*3/uL (160-400); Red Blood Count 4.79 X10*6/uL (4.60-5.80); Red Cell Distribution Width 13.6 % (11.0-16.0); White Blood Count 9.2 X10*3/uL (4.8-10.8)
[2024-11-11 11:45] LABS: Estimated Average Glucose 97 mg/dL; Hemoglobin A1C 130.6641 umol/L; Total Hemoglobin (HGBA1C) 4152.5381 umol/L
[2024-11-11 12:04] LABS: Alanine Aminotransferase 30 U/L (0-40); Albumin Level 4.5 g/dL (3.5-5.0); Alkaline Phosphatase 67 U/L (39-117); Aspartate Amino Transferase 22 U/L (5-37); Bilirubin Direct 0.1 mg/dL (0.0-0.5); Bilirubin Total 0.3 mg/dL (0.0-1.0); Iron 65 mcg/dL (45-160); Percent Iron Saturation 21 % (15-50); Total Iron Binding Capacity 309 mcg/dL (228-428); Total Protein 7.3 g/dL (6.5-8.0); Unsaturated Iron Binding 244 ug/dL
[2024-11-11 12:23] LABS: Ferritin 45 ng/mL (20-250); Free T4 (Free Thyroxine) 1.02 ng/dL (0.71-1.85)
[2024-11-11 12:32] LABS: Folate 15.9 ng/mL (> or = 4.0); Vitamin B12 882 pg/mL (200-900)
[2024-11-12 17:33] LABS: RPR Rapid Plasma Reagin NON-REACTIVE (NON-REACTIVE)
[2024-11-13 15:28] LABS: Venous Lead 1.4 mcg/dL (<3.5)
[2024-11-15 14:13] LABS: Testosterone, Total 671 ng/dL (250-1100)
== END 2024-11-11 10:48 | disposition home or self-care (01) ==
LOC: HO.HHCL 10:47
PROVIDERS: Visit Provider Family Medicine
DX: D64.9 Anemia, unspecified (principal); I10 Essential (primary) hypertension; Z13.88 Encounter for screening for disorder due to exposure to contaminants
CPT/HCPCS: 36415; 80076; 82607; 82728; 82746; 83036; 83540; 83655; 84403; 84439; 84443; 85027; 86592

== ENCOUNTER 2024-12-31 15:28 | Outpatient (REF) | payer MEDICAID, SELFPAY ==
[2024-12-31 16:34] LABS: Estimated Glomerular Filt Rate > 60
--- OUTSIDE RECORDS SUMMARY | 2024-12-31 18:42 | XMS_ITS | Encounter Summary ---
Author Organization [employer] Address [address] [place] [address] Care Team Providers Care Dog Daycare Provider Name Role Phone Mara Mariscal DO Primary Care Provider + [phone] Reason for Visit * Reason Comments Med Refill Encounter Details Date Type Department Care Team (Late st Contact Info) Description 12/06/2024 Refill [facility] [address] [place] [address] Mara Mariscal DO [address] [place] [address] Pain Social History Tobacco Use Types Packs/Day Years Used Date Smoking Tobacco: Every Day Cigarettes Passive Smoke Exposure: Current Smokeless Tobacco: Current Alcohol Use Standard Drinks/Week Comments Never 0 (1 standard drink = 0.6 oz pur e alcohol) Depression Answer Date Recorded Patient Health Questionnaire-9 Score 0 07/21/2024 Patient Health Questionnaire-9 Score 0 07/21/2024 Last PHQ-9: Questionnaire Data Not on file 0 07/21/2024 Housing Stability Answer Date Recorded What is your housing situation today? I have silvina perera 02/01/[address] you li ve. Do you have problems with any of the following? None of the above 02/01/2024 Food Insecurity Answer Date Recorded Within the past 12 months, y ou worried that your food would run out before you got money to buy more: Never True 02/01/2024 Within the past 12 months,th e food you bought just didn't last and you didn't have enough money to get more: Never True 02/2024 Transportation Answer Date Recorded In the past 12 months, has l ack of transportation kept you from medical appts, meetings, work or from getting things needed for daily living? No 02/01/2024 Utilities Answer Date Recorded In the past 12 months, has t he electric, gas, oil or water company threatened to shut off services in your home? No 02/01/2024 Depression Answer Date Recorded Patient Health Questionnaire-2 Score 0 07/21/2024 Internet Access Answer Date Recorded Internet Access Q1 Yes 07/21/2024 Internet Access Q2 Not on file 07/21/2024 Sex and Gender Information Value Date Recorded Sex Assigned at Male 08/28/2022 10:15 AM EDT Legal Sex Male 10:15 AM EDT Gender Identity Transgender Female 08/28/2022 10 :15 AM EDT Sexual Orientation Choose not to disclose 2021 10:15 AM EDT documented as of this encounter Plan of Treatment Upcoming Encounters Date Type Department Care Team (Late st Contact Info) Description 01/27/2025 9:45 AM EDT Office Visit [facility] [address] [place] [address] Mara Mariscal DO [address] [place] [address] documented as of this encounter Visit Diagnoses Diagnosis Pain Generalized pain documented in this encounter Additional Health Concerns Assessment Noted Time PHQ-9 Depression Total Score: 0 07/21/20 24 9:54 AM EDT documented as of this encounter Care Teams Dog Daycare Provider Relationship Specialty Start Date End Date Mara Mariscal DO [address] [place] [id number] PCP - General Family Medicine 09/03/12 documented as of this encounter
--- OUTSIDE RECORDS SUMMARY | 2024-12-31 18:42 | XMS_ITS | Encounter Summary ---
Author Organization [employer] [facility] Address [address] [place] [address] Care Team Providers Care Stereotyper Name Role Phone Mara Mariscal DO Primary Care Provider + [phone] Reason for Visit * Reason Onset Date Comments Med Refill 11/05/2024 Encounter Details Date Type Department Care Team (Late st Contact Info) Description 11/05/2024 Telephone [facility] [address] [place], [place] [phone] Mara Mariscal DO [address] [place], [place] [phone] Med Refill Social History Tobacco Use Types Packs/Day Years [...] AM EDT documented as of this encounter Miscellaneous Notes * Telephone Encounter - Mara Andrea LPN - 11/05/2024 10:03 AM EST Script was sent to [facility] on 10/14/24 #[phone] with 3 refills. * Telephone Encounter - Tita Coronel - 11/05/2024 9:36 AM EST TC from pt requesting medication refill. Medications needing refill : Multiple Vitamin (Multivitamin) tablet To be sent to: [facility] documented in this encounter Plan of Treatment Upcoming Encounters Date Type Department Care Team (Late st Contact Info) Description 01/27/2025 9:45 AM EDT Office Visit [facility] [address] [place], [place] [phone] Mara Mariscal DO [address] [place] [phone] documented as of this encounter Visit Diagnoses Not on filedocumented in this encounter Additional Health Concerns Assessment Noted Time PHQ-9 Depression Total Score: 0 07/21/20 24 9:54 AM EDT documented as of this encounter Care Teams Stereotyper Relationship Specialty Start Date End Date Mara Mariscal DO [address] [place] [address] PCP - General Family Medicine 09/03/12 documented as of this encounter
--- OUTSIDE RECORDS SUMMARY | 2024-12-31 18:42 | XMS_ITS | Encounter Summary ---
Author Organization [facility] Address [address] [place] [address] Care Team Providers Care Asbestos Removal Supervisor Name Role Phone Mara Mariscal DO Primary Care Provider + [phone] Reason for Visit * Reason Onset Date Comments Referral 12/25/2024 Encounter Details Date Type Department Care Team ([facility] st Contact Info) Description 12/25/2024 Telephone [facility] MEDICINE [address] [place], [place] [phone] Mara Mariscal DO [address] [place], [place] [phone] Referral Social History Tobacco Use Types Packs/Day Years [...] encounter Miscellaneous Notes * Telephone Encounter - Tarun Sorensen - 12/25/2024 9:42 AM EST Tc from Lacey at [facility] Stating that she needs the Location for referral made on 11/11/24. She states that the needs to be changed from [facility]. Contact Lacey at [phone] documented in this encounter Plan of Treatment Upcoming Encounters Date Type Department Care Team (Late st Contact Info) Description 01/27/2025 9:45 AM EDT Office Visit [facility] MEDICINE [address] [place] [address] Mara Mariscal DO [address] [place] [address] documented as of this encounter Visit Diagnoses Not on filedocumented in this encounter Additional Health Concerns Assessment Noted Time PHQ-9 Depression Total Score: 0 07/21/20 9:54 AM EDT documented as of this encounter Care Teams Asbestos Removal Supervisor Relationship Specialty Start Date End Date Mara Mariscal DO [address] [place] [address] PCP - General Family Medicine 09/03/12 documented as of this encounter
--- OUTSIDE RECORDS SUMMARY | 2024-12-31 18:42 | XMS_ITS | Encounter Summary ---
Author Organization 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 Name Role Phone Mara Mariscal DO Primary Care Provider + [phone] Reason for Visit * Reason Onset Date Comments Created In Error 08/18/2024 Encounter Details Date Type Department Care Team ([facility] st Contact Info) Description 08/18/2024 Telephone [facility] MEDICINE [address] [place], [place] [phone] Mara Mariscal DO [address] [place], [place] [phone] Created In Error Social History Tobacco Use Types Packs/Day Years [...] Description 01/27/2025 9:45 AM EDT Office Visit [facility] MEDICINE [address] [place] [address] Mara Mariscal DO [address] [place] [address] documented as of this encounter Visit Diagnoses Not on filedocumented in this encounter Additional Health Concerns Assessment Noted Time PHQ-9 Depression Total Score: 0 07/21/20 24 9:54 AM EDT documented as of this encounter Care Teams Straw Hat Brim Cutter Operator Relationship Specialty Start Date End Date Mara Mariscal DO [address] [place] [id number] PCP - General Family Medicine 09/03/12 documented as of this encounter
--- OUTSIDE RECORDS SUMMARY | 2024-12-31 18:42 | XMS_ITS | Encounter Summary ---
Author Organization [facility] Address [address] [place] [address] Care Team Providers Care Meal Room Hand Name Role Phone Mara Mariscal DO Primary Care Provider + [phone] Reason for Visit * Reason Comments Med Refill Encounter Details Date Type Department Care Team ([facility] st Contact Info) Description 11/11/2024 Refill [facility] MEDICINE [address] [place], [place] [phone] Mara Mariscal DO [address] [place], [place] [phone] Social History Tobacco Use Types Packs/Day Years [...] Description 01/27/2025 9:45 AM EDT Office Visit [facility] MEDICINE [address] [place] [address] Mara Mariscal DO [address] [place] [address] documented as of this encounter Visit Diagnoses Not on filedocumented in this encounter Additional Health Concerns Assessment Noted Time PHQ-9 Depression Total Score: 0 07/21/20 24 9:54 AM EDT documented as of this encounter Care Teams Meal Room Hand Relationship Specialty Start Date End Date Mara Mariscal DO [address] [place] [id number] PCP - General Family Medicine 09/03/12 documented as of this encounter
--- OUTSIDE RECORDS SUMMARY | 2024-12-31 18:42 | XMS_ITS | Clinical Summary ---
Author Organization [employer] Address [address] [facility] [address] [place] [address] Care Team Providers Care Marketing Technology Specialist Name Role Phone Loida Mara Primary Care Provider [phone]- [phone] Allergies No known active allergies Medications Skin Protectants, Misc. (eucerin) cream Apply topically 2 times daily. 454 g 5 023 Active nicotine polacrilex (Commit) 2 MG lozengeIndications :Tobacco dependence Dissolve 1 lozenge (2 mg) in the mouth every 2 (two) hours if needed for smoking cessation. 72 lozenge 2 023 Active ibuprofen 600 MG tablet TAKE 1 TABLET BY MOUTH FOUR TIMES DAILY WITH MEALS NEEDED 90 tablet 1 023 Active Ventolin HFA 108 (90 Base) MCG/ACT inhaler INHALE 2 PUFFS EVERY 4 HOURS NEEDED FOR WHEEZING OR SHORTNESS OF BREATH 18 g 2 023 Active triamcinolone (Kenalog) 0.1 % ointment APPLY TO THE AFFECTED AREA(S) TOPICALLY TWICE DAILY 30 g 023 Active chlorhexidine (Peridex) 0.12 % solution SWISH 15 ML BY MOUTH FOR 30 SECONDS THEN SPIT OUT TWICE DAILY DO NOT SWALLOW 473 mL 2 024 Active acetaminophen (Tylenol 8 Hour) 650 MG ER tabletIndications: Fibromyalgia TAKE 1 TABLET BY MOUTH EVERY 8 HOURS NEEDED FOR MILD PAIN. DO NOT BREAK, CRUSH, DISSOLVE OR CHEW 60 tablet 2 024 Active traZODone (Desyrel) 50 MG tabletIndications: Other insomnia TAKE 1 TABLET BY MOUTH EVERY DAY AT BEDTIME 30 tablet 2 024 Active D3 Super Strength 50 MCG (2000 UT) capsuleIndications :Healthcare maintenance TAKE 1 CAPSULE BY MOUTH EVERY MORNING 90 capsule 3 024 Active doxepin (SINEquan) 50 MG capsuleIndications :Bitten or stung by nonvenomous insect and other nonvenomous arthropods, initial encounter TAKE 1 CAPSULE BY MOUTH AT BEDTIME 90 capsule 3 024 Active triamcinolone (Nasacort) 55 MCG/ACT nasal inhaler Administer 2 sprays into each nostril in the morning. 16.5 g 11 024 2024 Active cetirizine (ZyrTEC) 10 MG tablet Take 1 tablet (10 mg) by mouth in the morning. 30 tablet 11 024 2024 Active tamsulosin (Flomax) 0.4 MG 24 hr capsuleIndications :Hypertension, unspecified type TAKE 1 CAPSULE BY MOUTH EVERY DAY 90 capsule 3 024 Active DULoxetine (Cymbalta) [address] capsuleIndications :Fibromyalgia TAKE 2 CAPSULES BY MOUTH EVERY DAY 60 capsule 2 024 Active clotrimazole (Lotrimin) 1 % creamIndications:T inea APPLY TO AFFECTED NAIL OF FOOT TWICE DAILY IN THE MORNING AND IN THE EVENING 60 g 2 024 Active Menaquinone-7 (Vitamin K2) 100 MCG capsule Take 100 mcg by mouth Once per day. 90 capsule 3 024 2024 Active Blood Pressure kit Use to check blood pressure as directed 1 kit 024 Active cyanocobalamin (Vitamin B-12) 1000 MCG tablet TAKE 1 TABLET BY MOUTH EVERY OTHER DAY 45 tablet 3 024 Active fluticasone furoate (Arnuity Ellipta) 100 MCG/ACT inhaler Inhale 1 puff Once per day. Rinse mouth with water after use to reduce aftertaste and incidence of candidiasis. Do not swallow.INHALE 1 PUFF BY MOUTH EVERY DAY AT THE SAME TIME RINSE MOUTH AFTER USING. 30 each 3 024 Active lidocaine (Lidoderm) 5 % patch APPLY 1 PATCH TOPICALLY TO SKIN, LEAVE ON FOR 12 HOURS AND OFF FOR 12 HOURS DIRECTED 30 patch 5 024 Active emtricitabine-teno fovir DF (Truvada) 200-300 MG tabletIndications: Post Nonoccupational Exposure HIV Prophylaxis,GFR > 60, CrCl 56-66 depending on sex used. Will recheck at 28d TAKE 1 TABLET BY MOUTH EVERY DAY 28 tablet 024 Active Multiple Vitamin (Multivitamin) tablet TAKE 1 TABLET BY MOUTH EVERY MORNING 90 tablet 3 024 Active loratadine (Claritin) 10 MG tablet Take 1 tablet by mouth Once per day. 024 Active cyclobenzaprine (Flexeril) 10 MG tabletIndications: Fibromyalgia TAKE 1 TABLET BY MOUTH TWICE DAILY NEEDED FOR MUSCLE SPASMS OR MUSCLE PAIN 60 tablet 2 025 Active emtricitabine-teno fovir AF (Descovy) 200-25 MG tablet Take 1 tablet by mouth Once per day. 30 tablet 2 Active Diclofenac Sodium 1 % gelIndications:Yosi n APPLY 2 GRAMS TOPICALLY TO AFFECTED AREA(S) TWICE DAILY 100 g 2 025 Active OXcarbazepine (Trileptal) 600 MG tabletIndications: Mood disorder (CMS/HCC) TAKE 1 TABLET BY MOUTH TWICE DAILY 60 tablet 2 025 Active clonazePAM (KlonoPIN) 1 MG tabletIndications: Anxiety Take 1 tablet (1 mg) by mouth 2 times daily for 28 days. 56 tablet 025 2024 Active OXcarbazepine (Trileptal) 600 MG tabletIndications: Mood disorder (CMS/HCC) Take 1 tablet (600 mg) by mouth 2 times daily. 60 tablet 2 024 2024 Discontinued Diclofenac Sodium 1 % gelIndications:Yosi n APPLY 2 GRAMS TOPICALLY TO AFFECTED AREA(S) TWICE DAILY 100 g 2 024 2024 Discontinued clonazePAM (KlonoPIN) 1 MG tabletIndications: Anxiety Take 1 tablet (1 mg) by mouth 2 times daily for 28 days. 56 tablet 025 2024 Discontinued(R eorder (will not trigger notification to Pharmacy)) doxycycline (Monodox) 100 MG capsule Take 2 capsules (200 mg) by mouth 1 (one) time for 1 dose. Take 24-72 hours after unprotected intercourse. Take with at least 8 ounces (large glass) of water, do not lie down for 30 minutes after 2 capsule 025 2024 Active Problems Problem Noted Date Diagnosed Date Chronic allergic rhinitis 08/01/2024 Anemia 08/01/2024 Fibromyalgia 10/02/2022 Mild persistent asthma 10/02/2022 Tobacco dependence 10/02/2022 Body mass index (BMI) of 19.0 to 19.9 in adult 1 12/03/2021 Anxiety 02/23/2016 Chronic low back pain 02/23/2016 Chronic pain syndrome 02/23/2016 Essential hypertension 02/23/2016 Osteopenia 02/23/2016 Major depression, recurrent, chronic 02/23/2016 Resolved Problems Problem Noted Date Diagnosed Date Resolved Date Dog bite of left lower leg 08/23/2023 08/17/2023 0 02/01/2024 Overview (08/23/2023): Pt seen in [facility] 08/17/23 for dog bite of left lower leg reportedly sustained 08/16/23. Dog was unleashed, unknown to pt. Pt advised to f/u in ED with rabies vaccines Fibromyositis 02/23/2016 06/12/2024 Somatoform pain disorder 02/23/2016 Tobacco dependence syndrome 02/23/2016 06/12/2024 Encounters Date Type Department Care Team Description 12/31/2024 Telephone [facility] [address] [place] [address] Mara Mariscal DO 12/25/2024 Telephone [facility] [address] [place] [address] Mara Mariscal DO Referral 12/22/2024 Refill [facility] [address] [facility] [place] [address] Mara Mariscal DO Anxiety 12/17/2024 Refill [facility] [address] [place] [address] Sheryl Bui RN 12/12/2024 11:20 AM EST Nurse Only [facility] [address] [facility] [place] [address] Nancie Nguyen LPN Encounter for immunization (Primary Dx) 12/12/2024 Travel 12/11/2024 Outside Procedure [facility] [address] [place] [address] Carla Dunaway, OD Presbyopia (Primary Dx) 12/11/2024 Refill [facility] [address] [place] [address] Mara Mariscal DO Mood disorder (CMS/[facility]) 12/09/2024 3:45 PM EST Office Visit [facility] [address] [place] [address] Carla Dunaway, OD Regular astigmatism of right eye (Primary Dx) 12/06/2024 Refill [facility] [address] [place] [address] Mara Mariscal DO Pain 11/20/2024 10:45 AM EST Office Visit [facility] [address] [place] [address] Maria L Lepe MD Fibromyalgia (Primary Dx) 11/20/2024 Travel 11/18/2024 Refill [facility] [address] [place] [address] Mara Mariscal DO Fibromyalgia 11/18/2024 Refill [facility] [address] [place] [address] Mara Mariscal DO Fibromyalgia 11/18/2024 Refill [facility] [address] [place] [address] Geni Siddiqui RN Anxiety 11/13/2024 Travel 11/12/2024 2:00 PM EST Office Visit [facility] [address] [place] [address] Carla Dunaway, OD Eyelid lesion (Primary Dx); Dermatochalasis of both upper eyelids 11/12/2024 Travel 11/11/2024 Orders Only [facility] [address] [place] [address] Mara Mariscal DO Swelling under tongue (Primary Dx); Vocal cord dysfunction 11/11/2024 Refill [facility] [address] [place] [address] Mara Mariscal, 11/05/2024 Telephone [facility] [address] [place] [address] Mara Mariscal, Med Refill 10/17/2024 Refill [facility] [address] [place] [address] Mara Mariscal, Anxiety 10/17/2024 Telephone [facility] [address] [place] [address] Mara Mariscal, Med Refill 10/16/2024 10:30 AM EST Office Visit [facility] [address] [place] [address] Carla Dunaway, OD Suspicious optic nerve cupping of both eyes (Primary Dx); Dry eyes; Presbyopia 10/16/2024 Telephone [facility] [address] [place] [address] Sunita Arroyo RN 10/16/2024 Travel 2024 Telephone [facility] [address] [place] [phone] Mara Mariscal, Referral 2024 Travel 10/12/2024 Refill [facility] [address] [place] [address] Mara Mariscal, 10/07/2024 Refill [facility] [address] [place] [phone] Mara Mariscal DO 10/02/2024 Refill [facility] [address] [place] [address] Lima Frederick MD Pain 10/02/2024 Refill [facility] [address] [place] [address] Mara Mariscal DO from Last 3 Months Immunizations Name Administration Dates Next Due Hep A, Adult 04/06/2021,10/05/2020 Hep B, adult 12/12/2024,,05/21/2024,02/09,08/25/1998,07/26/1998 Moderna Covid-19 Vaccine 12+ 02/07/2022, 09/21/2021,03/09/2021,02/09 Pneumococcal Polysaccharide PPSV23 12/29/2019 TD (adult), 2 Lf tetanus tox oid, preservative free, adsorbed 12/29/2019,06/23/1998 Td (adult), 5 Lf tetanus tox oid, preservative free, adsorbed 07/23/2016 Tdap 04/06/2021,12/08/2009 Zoster, Recombinant 03/02/2022,12/22/2021 Family History Medical History Relation Name Comments Colon cancer Mother Diabetes Mother Hypertension Mother Thyroid disease Sister Relation Name Status Comments Mother Sister Social History Tobacco Use Types Packs/Day Years Used Date Smoking Tobacco: Every Day Cigarettes Passive Smoke Exposure: Current Smokeless Tobacco: Current Tobacco Cessation:Ready to Q uit: Not Asked; Counseling Given: Not Answered Alcohol Use Standard Drinks/Week Comments Never 0 [...] not to disclose 2021 10:15 AM EDT Last Filed Vital Signs Vital Sign Reading Time Taken Comments Blood Pressure 124/86 10/01/2024 8:59 AM EST Pulse 80 10/01/2024 8:59 AM EST Temperature 36.6 ??C (97.8 ??F) 10/01/2024 8:59 AM ES T Respiratory Rate 17 10/01/2024 8:59 AM EST Oxygen Saturation 98% 06/10/2024 10:10 AM EDT Inhaled Oxygen Concentration - - Weight 59.6 kg (131 lb 6.4 oz) 10/01/2024 8:59 A M EST Height 172.7 cm (5' 8 ) 10/01/2024 8:59 AM EST Body Mass Index 19.98 10/01/2024 8:59 AM EST Plan of Treatment Upcoming Encounters Date Type Department Care Team (Late st Contact Info) Description 01/27/2025 9:45 AM EDT Office Visit [facility] [address] [place] [phone] Mara Mariscal DO [address] [place] [address] Health Maintenance Due Date Last Done Comments CT Colonography 1971 Colonoscopy 1971 Colorectal Cancer Screening 1971 FIT DNA/Cologuard 1971 FIT 1971 FOBT 1971 Sigmoidoscopy 1971 Alcohol/Substance Use Screening 1983 Pneumococcal Vaccine: 50+ Years (2 of 2 - PCV) 12/28/2020 12/29/2019 COVID-19 Vaccine ( season) 2024 09/25/2022, 02/07/2022, 09/21/2021, Additional history exists Influenza Vaccine (#1) 2024 Depression Screening 07/21/2025 07/21/2024, 07/21/20 SDOH Screening 07/21/2025 07/21/2024 Tobacco Screening 12/01/2025 12/01/2024 Lipid Panel 07/23/2029 07/23/2024, 02/26, 09/12/2023, Additional history exists DTaP/Tdap/Td Vaccines (5 - Td or Tdap) 04/06/2031 04/06/2021, 12/29/2019, 07/23/2016, Additional history exists RSV Patients and Patients Aged 60 years or older (1 - 1-dose 75+ series) 2046 Hepatitis A Vaccines Completed 04/06/2021, 10/05/20 Zoster Vaccines Completed 03/02/2022, 12/22/2021 HIV Screening Completed 10/03/2024, 06/30, 07/04/2024, Additional history exists Hepatitis C Screening Completed 10/03/2024 , 07/23/2024, 05/21/2024, Additional history exists Hepatitis B Vaccines Completed 12/12/2024, 06/23/2024, 05/21/2024, Additional history exists HIB Vaccines Aged Out No longer eligi ble based on patient's age to complete this topic HPV Vaccines Aged Out No longer eligi ble based on patient's age to complete this topic IPV Vaccines Aged Out No longer eligi ble based on patient's age to complete this topic Meningococcal Vaccine Aged Out No cheikh fabiola eligible based on patient's age to complete this topic RSV under 20 months Aged Out No longe r eligible based on patient's age to complete this topic Rotavirus Vaccines Aged Out No longer eligible based on patient's age to complete this topic Procedures Procedure Name Priority Date/Time Associated Diagnosis Comments CREATININE, SERUM Routine 12/31/2024 3:3 1 PM EST Screen for STD (sexually transmitted disease) IRON AND TOTAL IRON BINDING CAPACITY Routine 11/11/2024 10:55 AM EST Anemia, unspecified type FERRITIN Routine 11/11/2024 10:55 AM EST Anemia, unspecified type VITAMIN B12/FOLATE, SERUM PANEL Routine 11/11/2024 10:55 AM EST Anemia, unspecified type TESTOSTERONE, TOTAL, MALES (ADULT), IA Routine 11/11/2024 10:55 AM EST Anemia, unspecified type LEAD (VENOUS) Routine 11/11/2024 10:55 AM EST Heavy metal poison. screen RPR (MONITOR) W/REFL TITER Routine 11/11/2024 10:55 AM EST Essential hypertension CBC Routine 11/11/2024 10:55 AM EST Essential hypertension HEMOGLOBIN A1C Routine 11/11/2024 10:55 AM EST Essential hypertension HEPATIC FUNCTION PANEL Routine 11/11/2024 10:55 AM EST Essential hypertension TSH Routine 11/11/2024 10:55 AM EST Essential hypertension T4, FREE Routine 11/11/2024 10:55 AM EST Essential hypertension OCT, OPTIC NERVE - OU - BOTH EYES Routine 10/16/2024 10:30 AM EST Suspicious optic nerve cupping of both eyes HEPATITIS C ANTIBODY ([place] DPH) Routine 10/03/2024 SYPHILIS ABS (MA DPH) Routine 10/03/2024 HIV ANTIBODY/ANTIGEN ([place] DPH) Routine 10/03/2024 CHLAMYDIA/GONORRHEA - URINE ([place] DPH) Routine 10/03/2024 CHLAMYDIA/GONORRHEA RECTAL SWAB ([place] DPH) Routine 10/03/2024 CHLAMYDIA/GONORRHEA THROAT SWAB ([place] DPH) Routine 10/03/2024 LIPID PANEL, STANDARD Routine 07/23/2024 10:54 AM EDT Essential hypertension from Last 3 Months or Most Recently Relevant to Health Maintenance Results * Creatinine, Serum (12/31/2024 3:31 PM EST) Creatinine, Serum 1.04 0.5 - 1.4 mg/dL [facility] Estimated Glomerular Filt Rate >60 [facility] Comment:Chronic Kidney Disea se: Estimated GFR < 60 mL/min/1.67g2Cyvzyu Kidney Disease: Estimated GFR < 15 mL/min/1.73m2 Blood Venous blood specimen / Unknown 12/31/2024 3:31 PM EST 12/31/2024 4:09 PM EST Mara Mariscal [employer] LAB BLOOD ORDERABLES Final R esult Performing Organization Address [facility] Co de Phone Number [facility] [address] [place] [phone] * Vitamin B12 (Cobalamin) and Folate Panel, Serum (11/11/2024 10:55 AM EST) Vitamin B12 882 200 - 900 pg/mL [facility] Comment:NORMAL 200-900 PG/ML INDETERMINATE 160-199 PG/ML DEFICIENT < 160 PG/ML Folate 15.9 > or = 4.0 ng/mL [facility] Comment:Reference Values:> o r = 4.0 ng/mL< 4.0 ng/mL suggests folate deficiency Methotrexate, aminopterin and folinic acid(leucovorin) are chemotherapeutic agents whose molecularstructures are similar to folate; therefore, the Architectfolate assay cannot be used for patients using these drugs. Blood 11/11/2024 10:5 5 AM EST 11/11/2024 11:19 AM EST Mara Mariscal [employer] LAB BLOOD ORDERABLES Final R esult Performing Organization Address [facility] Co de Phone Number [facility] [address] [place] [phone] * Iron And Total Iron Binding Capacity (11/11/2024 10:55 AM EST) Pathologist [facility] Iron 65 45 - 160 mcg/dL [facility] Total Iron Binding Capacity 309 228 - 428 mcg/dL [facility] Percent Iron Saturation 21 15 - 50 % [facility] Unsaturated Iron Binding 244 ug/dL [facility] Blood Venous blood specimen / Unknown 11/11/2024 10:55 AM EST 11/11/2024 11:19 AM EST Mara Mariscal DO LAB BLOOD ORDERABLES Final R esult Performing Organization Address [facility] Co de Phone Number [facility] [address] [place], [place] [phone] * RPR (Monitor) with Reflex to??Titer (11/11/2024 10:55 AM EST) Pathologist [facility] RPR (Monitor) w/Refl Titer NON-REACTI VE NON-REACT ANDERSON [facility] Comment:THIS TEST WAS PERFOR MED AT:[employer] [address] [id number] SORTO MD Rapid Plasma Reagin Ab Titer TNP [facility] Blood Venous blood specimen / Unknown 11/11/2024 10:55 AM EST 11/11/2024 11:19 AM EST us Mara Mariscal DO LAB BLOOD ORDERABLES Final R esult Performing Organization Address [facility]/ZIP Co de Phone Number [facility] [address] [place], [place] [phone] * (ABNORMAL) CBC (11/11/2024 10:55 AM EST) [facility] White Blood Count 9.2 4.8 - 10.8 X10*3/uL [facility] Red Blood Count 4.79 4.60 - 5.80 X10*6/uL [facility] Hemoglobin 16.1 14.0 - 18.0 g/dl [facility] Hematocrit 46.4 42.0 - 52.0 % [facility] Mean Corpuscular Volume 96.9 80.0 - 98.0 fL [facility] Mean Corpuscular Hemoglobin 33.6(H) 27.0 - 33.0 pg [facility] Mean Corpuscular HGB Conc 34.7 31.0 - 36.0 g/dl [facility] Red Cell Distribution Width 13.6 11.0 - 16.0 % [facility] Platelet Count 262 160 - 400 X10*3/uL [facility] Mean Platelet Volume 9.1(L) 9.4 - 12.4 fL [facility] NRBC Pct Auto 0.0 0.0 - 0.2 /100WBC [facility] NRBC Abs Auto 0.000 0.0 - 0.012 X10*3/uL [facility] Blood Venous blood specimen / Unknown 11/11/2024 10:55 AM EST 11/11/2024 11:19 AM EST Mara Mariscal LAB BLOOD ORDERABLES Final R esult Performing Organization Address [facility] Co de Phone Number [facility] [address] [place] [phone] * TSH (11/11/2024 10:55 AM EST) Thyroid Stimulating Hormone 2.80 0.32 - 4.0 uIU/mL [facility] Comment:Note: A sustained TS H level above 2.5 uIU/mL may warrant further investigation. TSH 3rd Generation ([employer]) Blood Venous blood specimen / Unknown 11/11/2024 10:55 AM EST 11/11/2024 11:19 AM EST Mara Mariscal DO LAB BLOOD ORDERABLES Final R esult Performing Organization Address City/[facility]/ZIP Co de Phone Number [facility] [address] [place] [phone] * T4, Free (11/11/2024 10:55 AM EST) Free T4 (Free Thyroxine) 1.02 0.71 - 1.85 ng/dL [facility] Blood Venous blood specimen / Unknown 11/11/2024 10:55 AM EST 11/11/2024 11:19 AM EST Mara Mariscal LAB BLOOD ORDERABLES Final R esult Performing Organization Address City/[facility]/ZIP Co de Phone Number [facility] [address] [place] [phone] * Testosterone, Total, males (Adult), IA (11/11/2024 10:55 AM EST) Testosterone, Total 671 250 - 1100 ng/dL [facility] Comment:For additional infor kathy, please refer [email or web address] App.Playnery/faq/[email or web address](This link is being provided for informational/educational purposes only.)This test was developed and its analytical performancecharacteristics have been determined by [employer] [place], [place]. It hasnot been cleared or approved by the U.S. Food and DrugAdministration. This assay has been validated pursuantto the CLIA regulations and is used for clinicalpurposes.THIS TEST WAS PERFORMED AT:[employer]/[id number] [place] [id number] VARNER MD,PHD Blood Venous blood specimen / Unknown 11/11/2024 10:55 AM EST 11/11/2024 11:19 AM EST Mara Mariscal LAB BLOOD ORDERABLES Final R esult Performing Organization Address City/[facility]/ZIP Co de Phone Number [facility] [address] [place] [phone] * Lead, Venous (11/11/2024 10:55 AM EST) Venous Lead 1.4 <3.5 mcg/dL [facility] Comment:See Note 1Note 1This test was developed and its analytical performancecharacteristics have been determined by [employer]. It has not been cleared or approved by theA. This assay has been validated pursuant to the CLIAregulations and is used for clinical purposes.THIS TEST WAS PERFORMED AT:[facility] [place] [id number] SORTO MD Blood Venous blood specimen / Unknown 11/11/2024 10:55 AM EST 11/11/2024 11:19 AM EST Narrative [facility] - 11/13/2024 3:28 PM EST Venous us Mara Mariscal DO LAB BLOOD ORDERABLES Final R esult [facility] [address] [place] [phone] * Hemoglobin A1c (11/11/2024 10:55 AM EST) Hemoglobin A1c 5.0 <6.0 % [facility] Comment:Hemoglobin A1C Refer ence Range Adults: 4.8 - 6.0 % Non diabetic: < 6.0 % Goal: < 7.0 %Additional Action Suggested: > 8.0 %Note: Hemoglobin A1c results are invalid for patients with abnormal amounts of HbF. Blood transfusions may impact the HbA1c concentration in the patient sample. Estimated Average Glucose 97 mg/dL [facility] Comment:eAG = Estimated ave rage glucose which is %A1C expressed asaverage glucose, using the formula of the H2M-GbbclcaPvxkhon Glucose study (ADAG), Diabetes Care, Vol.31,#8,May. 2007 Blood Venous blood specimen / Unknown 11/11/2024 10:55 AM EST 11/11/2024 11:19 AM EST us Mara Mariscal DO LAB BLOOD ORDERABLES Final R esult Performing Organization Address City/[facility]/ZIP Co de Phone Number [facility] [address] [place] [phone] * Ferritin (11/11/2024 10:55 AM EST) Ferritin 45 20 - 250 ng/mL [facility] Blood Venous blood specimen / Unknown 11/11/2024 10:55 AM EST 11/11/2024 11:19 AM EST Mara Mariscal DO LAB BLOOD ORDERABLES Final R esult Performing Organization Address [facility] Co de Phone Number [facility] [address] [place] [phone] * Hepatic Function Panel (11/11/2024 10:55 AM EST) Bilirubin, Total 0.3 0.0 - 1.0 mg/dL [facility] Bilirubin, Direct 0.1 0.0 - 0.5 mg/dL [facility] Aspartate Amino Transferase 22 5 - 37 U/L [facility] Alanine Aminotransferase 30 0 - 40 U/L [facility] Total Protein 7.3 6.5 - 8.0 g/dL [facility] Albumin Level 4.5 3.5 - 5.0 g/dL [facility] Alkaline Phosphatase 67 39 - 117 U/L [facility] Blood Venous blood specimen / Unknown 11/11/2024 10:55 AM EST 11/11/2024 11:19 AM EST Mara Loida DO LAB BLOOD ORDERABLES Final R esult Performing Organization Address [facility] Co de Phone Number [facility] [address] [place] [phone] * Chlamydia/Gonorrhea, Rectal Swab ([place]) (10/03/2024) Chlamydia Rectal Swab Negative Negative, Indeterminate, None Detected, Invalid, Specimen unsatisfactory for evaluation Gonorrhea Rectal Swab Negative Negative, Indeterminate, None Detected, Invalid, Specimen unsatisfactory for evaluation Swab 10/03/2024 [facility] Provider LAB MICROBIOLOGY - GENERA L ORDERABLES Final Result * Chlamydia/Gonorrhea Throat Swab ([place] DPH) (10/03/2024) Chlamydia Throat Swab Negative Gonorrhea Throat Swab Negative Swab 10/03/2024 [facility] Provider LAB MICROBIOLOGY - GENERA L ORDERABLES Final Result * Chlamydia/Gonorrhea, Urine ([place] DPH) (10/03/2024) Pathologist [facility] Chlamydia, Urine Negative Negative, Indeterminate, None Detected, Invalid, Specimen unsatisfactory for evaluation, Weakly Positive Gonorrhea, Urine Negative Negative, Indeterminate, None Detected, Invalid, Specimen unsatisfactory for evaluation, Weakly Positive Urine 10/03/2024 Result [facility] Provider LAB URINE ORDERABLES Omaira l Result * (ABNORMAL) Syphilis Antibodies (DPH) (10/03/2024) Pathologist [facility] Syphilis Abs Reactive(A) Borderline, Nonreactive, Weakly Reactive, Inconclusive, Specimen unsatisfactory for evaluation Syphilis RPR Nonreactive Blood Venous blood specimen / Unknown 10/03/2024 [facility] Provider MD LAB BLOOD ORDERABLES Omaira l Result * Hepatitis C Antibody ([place] DPH) (10/03/2024) Pathologist [facility] Hepatitis C Ab Nonreactive Blood 10/03/2024 Result [facility] Provider MD LAB BLOOD ORDERABLES Omaira l Result * HIV Ab/Ag ([place] DPH) (10/03/2024) HIV Ag/Ab Nonreactive Blood 10/03/2024 us Historical Provider LAB BLOOD ORDERABLES Omaira l Result * Lipid Panel, Standard (07/23/2024 10:54 AM EDT) Triglycerides 82 <150 mg/dL [facility] Comment:Desirable Triglyceri de: less than 150 mg/dLBorderline High Triglyceride 150-199 mg/dLHigh Triglyceride: 200-499 mg/dLVery High Triglyceride: greater than or equal to 5OO mg/dL Cholesterol 183 <200 mg/dL [facility] Comment:Desirable Cholestero l: less than 200 mg/dLBorderline High Cholesterol: 200-239 mg/dLHigh Cholesterol: greater than 239 mg/dL LDL Cholesterol Calculated 66 <100 mg/dL [facility] Comment:Desirable LDL: less than 100 mg/dLNear Optimal/Above Optimal LDL: 110- 129 mg/dLBorderline High LDL: 130-159 mg/dLHigh LDL: 160-189 mg/dLVery High LDL: greater than or equal to 190 mg/dL HDL Cholesterol 101 >40 mg/dL [facility] Comment:Desirable HDL: great er than 40 mg/dL Note: This HDL assay may give artificially low results in patients with liver disease. Blood Venous blood specimen / Unknown 07/23/2024 10:54 AM EDT 07/23/2024 1:25 PM EDT Mara Mariscal DO LAB BLOOD ORDERABLES Final R esult [facility] [address] [place] [phone] [phone] from Last 3 Months or Most Recently Relevant to Health Maintenance Insurance [facility] [employer] Care Teams Marketing Technology Specialist Relationship Specialty Start Date End Date Mara Mariscal DO [address] [place] [phone] PCP - General Family Medicine 09/03/12
--- OUTSIDE RECORDS SUMMARY | 2024-12-31 18:42 | XMS_ITS | Encounter Summary ---
Author Organization [employer] Address [address] [facility] 7t [place] [address] Care Team Providers Care Airline Ticket Agent Name Role Phone Loida Mara Primary Care Provider + [phone] Encounter Details Date Type Department Care Team (Latest Contact Info) Description 12/12/2024 Travel Social History Tobacco Use Types Packs/Day Years [...] Description 01/27/2025 9:45 AM EDT Office Visit [facility] MEDICINE [address] [place] [address] Mara Mariscal DO [address] [place] [address] documented as of this encounter Visit Diagnoses Not on filedocumented in this encounter Additional Health Concerns Assessment Noted Time PHQ-9 Depression Total Score: 0 07/21/20 24 9:54 AM EDT documented as of this encounter Care Teams Airline Ticket Agent Relationship Specialty Start Date End Date Mara Mariscal DO [address] [place] [address] PCP - General Family Medicine 09/03/12 documented as of this encounter
--- OUTSIDE RECORDS SUMMARY | 2024-12-31 18:42 | XMS_ITS | Encounter Summary ---
Author Organization [employer] Address [address] [facility] 7t [place] [address] Care Team Providers Care Rotary Cutter Name Role Phone Mara Mariscal DO Primary Care Provider + [phone] Encounter Details Date Type Department Care Team (Late st Contact Info) Description 12/09/2024 3:45 PM EST Office Visit [facility] OPTOMETRY [address] [place] [address] Gume, Carla, OD [address] [place] [address] Regular astigmatism of right eye (Primary Dx) Social History Tobacco Use Types Packs/Day Years [...] AM EDT documented as of this encounter Progress Notes * Carla Dunaway OD - 12/09/2024 3:45 PM EST MH glasses were dispensed, 1 of 2. documented in this encounter Plan of Treatment Upcoming Encounters Date Type Department Care Team (Late st Contact Info) Description 01/27/2025 9:45 AM EDT Office Visit [facility] MEDICINE [address] [place] [address] Mara Mariscal DO [address] [place] [address] documented as of this encounter Visit Diagnoses Diagnosis Regular astigmatism of right eye- Primary documented in this encounter Additional Health Concerns Assessment Noted Time PHQ-9 Depression Total Score: 0 07/21/20 24 9:54 AM EDT documented as of this encounter Care Teams Rotary Cutter Relationship Specialty Start Date End Date Mara Mariscal DO [address] [place] [phone] PCP - General Family Medicine 09/03/12 documented as of this encounter
--- OUTSIDE RECORDS SUMMARY | 2024-12-31 18:42 | XMS_ITS | Encounter Summary ---
Author Organization [employer] Address 75 [facility] 7t [place] [address] Care Team Providers Care Insulation Mechanic Name Role Phone Mara Mariscal DO Primary Care Provider + [phone] Reason for Visit * Reason Onset Date Comments Med Refill 12/22/2024 Encounter Details Date Type Department Care Team (Late st Contact Info) Description 12/22/2024 Refill [facility] MEDICINE [address] [place] [address] Mara Mariscal DO [address] [place], [place] [phone] Anxiety Social History Tobacco Use Types Packs/Day Years [...] encounter Miscellaneous Notes * Telephone Encounter - Merly Mcadams - 12/22/2024 10:05 AM EST TC from pt requesting medication refill. Medications needing refill : clonazePAM (KlonoPIN) 1 MG tablet To be sent to: [facility] documented in this encounter Plan of Treatment Upcoming Encounters Date Type Department Care Team (Late st Contact Info) Description 01/27/2025 9:45 AM EDT Office Visit [facility] MEDICINE [address] [place] [address] Mara Mariscal DO [address] [place] [address] documented as of this encounter Visit Diagnoses Diagnosis Anxiety Anxiety state, unspecified documented in this encounter Additional Health Concerns Assessment Noted Time PHQ-9 Depression Total Score: 0 07/21/20 9:54 AM EDT documented as of this encounter Care Teams Insulation Mechanic Relationship Specialty Start Date End Date Mara Mariscal DO [address] [place] [address] PCP - General Family Medicine 09/03/12 documented as of this encounter
--- OUTSIDE RECORDS SUMMARY | 2024-12-31 18:42 | XMS_ITS | Encounter Summary ---
Author Organization [employer] Address 75 [facility] 7t [place] [address] Care Team Providers Care Civil Engineering Designer Name Role Phone Mara Mariscal DO Primary Care Provider + [phone] Encounter Details Date Type Department Care Team (Latest Contact Info) Description 12/11/2024 Outside Procedure [facility] OPTOMETRY [address] [place] [address] Gume, Carla, OD [address] [place] [address] Presbyopia (Primary Dx) Social History Tobacco Use Types [...] Progress Notes * Carla Dunaway OD - 12/11/2024 10:09 AM EST MH glasses were dispensed, 2 of 2. documented in this encounter Plan of Treatment Upcoming Encounters Date Type Department Care Team (Late st Contact Info) Description 01/27/2025 9:45 AM EDT Office Visit [facility] MEDICINE [address] [place] [address] Mara Mariscal DO [address] [place] [address] documented as of this encounter Visit Diagnoses Diagnosis Presbyopia- Primary documented in this encounter Additional Health Concerns Assessment Noted Time PHQ-9 Depression Total Score: 0 07/21/20 24 9:54 AM EDT documented as of this encounter Care Teams Civil Engineering Designer Relationship Specialty Start Date End Date Mara Mariscal DO [address] [place] [address] PCP - General Family Medicine 09/03/12 documented as of this encounter
--- OUTSIDE RECORDS SUMMARY | 2024-12-31 18:42 | XMS_ITS | Encounter Summary ---
Author Organization [employer] [facility] Address [address] [facility] 7t [place] [address] Care Team Providers Care Market Manager Name Role Phone Mara Mariscal DO Primary Care Provider + [phone] Reason for Visit * Reason Onset Date Comments pt1 02/22/2023 Encounter Details Date Type Department Care Team (Late st Contact Info) Description 02/22/2023 Telephone [facility] MEDICINE [address] [place], [place] [phone] Mara Mariscal DO [address] [place], [place] [phone] pt1 Social History Tobacco Use Types Packs/Day Years Used Date Smoking Tobacco: Every Day Cigarettes Passive Smoke Exposure: Current Smokeless Tobacco: Current Alcohol Use Standard Drinks/Week Comments Never 0 (1 standard drink = 0.6 oz pur e alcohol) Depression Answer Date Recorded Patient Health Questionnaire-9 Score 0 01/16/2023 Depression Answer Date Recorded Patient Health Questionnaire-2 Score 0 01/16/2023 Sex and Gender Information Value Date Recorded Sex Assigned at Male 08/28/2022 10:15 AM EDT Legal Sex Male 10:15 AM EDT Gender Identity Transgender Female 08/28/2022 10 :15 AM EDT Sexual Orientation Choose not to disclose 2021 10:15 AM EDT COVID-19 Exposure Response Date Recorded In the last 10 days, have yo u been in contact with someone who was confirmed or suspected to have Coronavirus/COVID-19? No / Unsure 02/22/2023 10:20 AM EDT documented as of this encounter Miscellaneous Notes * Telephone Encounter - Orlando Ck - 02/22/2023 10:38 AM EDT Tc from dwayne case management specialist requesting a pt1 Date: 02/25/23 Time: 6:30 am address: [address] [place] [phone] specialty: MRI # visits: dance critic: yes Wheelchair: no documented in this encounter Plan of Treatment Upcoming Encounters Date Type Department Care Team (Late st Contact Info) Description 01/27/2025 9:45 AM EDT Office Visit [facility] MEDICINE [address] [place] [address] Mara Mariscal DO [address] [place] [address] documented as of this encounter Visit Diagnoses Not on filedocumented in this encounter Additional Health Concerns Assessment Noted Time PHQ-9 Depression Total Score: 0 01/17/20 23 12:16 PM EDT documented as of this encounter Care Teams Market Manager Relationship Specialty Start Date End Date Mara Mariscal DO [address] [place] [address] PCP - General Family Medicine 09/03/12 documented as of this encounter
--- OUTSIDE RECORDS SUMMARY | 2024-12-31 18:42 | XMS_ITS | Encounter Summary ---
Author Organization [employer] Address [address] [facility] 7t [place] [address] Care Team Providers Care Shuttlecock Feather Trimmer Name Role Phone Mara Mariscal DO Primary Care Provider + [phone] Reason for Visit * Reason Comments Med Refill Encounter Details Date Type Department Care Team ([facility] st Contact Info) Description 12/11/2024 Refill [facility] PEDS [address] [place] [address] Mara Mariscal DO [address] [place] [address] Mood disorder (CMS/HCC) Social History Tobacco Use Types Packs/Day Years [...] Description 01/27/2025 9:45 AM EDT Office Visit [facility] MEDICINE [address] [place] [address] Mara Mariscal DO [address] [place] [address] documented as of this encounter Visit Diagnoses Diagnosis Mood disorder (CMS/HCC) Unspecified episodic mood disorder documented in this encounter Additional Health Concerns Assessment Noted Time PHQ-9 Depression Total Score: 0 07/21/20 24 9:54 AM EDT documented as of this encounter Care Teams Shuttlecock Feather Trimmer Relationship Specialty Start Date End Date Mara Mariscal DO [address] [place] [address] PCP - General Family Medicine 09/03/12 documented as of this encounter
--- OUTSIDE RECORDS SUMMARY | 2024-12-31 18:42 | XMS_ITS | Encounter Summary ---
Author Organization [employer] Address 75 [facility] 7t [place] [address] Care Team Providers Care Breaker Engineer Name Role Phone Mara Mariscal DO Primary Care Provider + [phone] Encounter Details Date Type Department Care Team (Late st Contact Info) Description 12/12/2024 11:20 AM EST Nurse Only [facility] MEDICINE [address] [place], [place] [phone] Nancie Nguyen LPN Encounter for immunization (Primary Dx) Social History Tobacco Use Types [...] as of this encounter Progress Notes * Nancie Nguyen LPN - 12/12/2024 11:20 AM EST Subjective Patient ID: Linda De Jesus is a 54 y.o. adult who presents Pt here for 3rd, of 3 dose series, Engerix, Hepatitis B, Vaccine. Patient history and self attestation indicate no contraindication to vaccination. Pt advised of possible side effects of vaccine including fever, headache and fatigue and advised to stay for 15 minutes monitoring post-vaccine. Pt states understanding and agrees to vaccination. documented in this encounter Plan of Treatment Upcoming Encounters Date Type Department Care Team (Late st Contact Info) Description 01/27/2025 9:45 AM EDT Office Visit [facility] MED[facility]INE [address] [place] [address] Mara Mariscal DO [address] [place] [address] documented as of this encounter Visit Diagnoses Diagnosis Encounter for immunization- Primary documented in this encounter Additional Health Concerns Assessment Noted Time PHQ-9 Depression Total Score: 0 07/21/20 24 9:54 AM EDT documented as of this encounter Care Teams Breaker Engineer Relationship Specialty Start Date End Date Mara Mariscal DO [address] [place] [address] PCP - General Family Medicine 09/03/12 documented as of this encounter
--- OUTSIDE RECORDS SUMMARY | 2024-12-31 18:42 | XMS_ITS | Encounter Summary ---
Author Organization [employer] Address [address] [facility] 7t [place] [address] Care Team Providers Care Bead Forming Machine Set Up Operator Name Role Phone Mara Mariscal DO Primary Care Provider + [phone] Encounter Details Date Type Department Care Team ([facility] st Contact Info) Description 12/31/2024 Telephone [facility] MEDICINE [address] [place], [place] [phone] Mara Mariscal DO [address] [place], [place] [phone] Social History Tobacco Use Types Packs/Day Years [...] Description 01/27/2025 9:45 AM EDT Office Visit [facility] MEDICINE [address] [place], [place] [phone] Mara Mariscal DO [address] [place] [address] Scheduled Orders Name Type Priority Associated Diagnoses Orde r Schedule HIV-1 RNA, Quantitative, Real-Time PCR Lab Routine Screen for STD (sexually transmitted disease) Expected: 12/31/2024 (Approximate), Expires: 12/31/2025 Hepatitis C Antibody with Reflex to HCV, RNA, Quantitative, Real-Time PCR Lab Routine Screen for STD (sexually transmitted disease) Expected: 12/31/2024, Expires: 12/31/2025 Syphilis Screen Lab Routine Screen for STD (sexually transmitted disease) Expected: 12/31/2024 (Approximate), Expires: 12/31/2025 documented as of this encounter Procedures Procedure Name Priority Date/Time Associated Diagnosis Comments CREATININE, SERUM Routine 12/31/2024 3:3 1 PM EST Screen for STD (sexually transmitted disease) documented in this encounter Results * Creatinine, Serum (12/31/2024 3:31 PM EST) Creatinine, Serum 1.04 0.5 - 1.4 mg/dL [facility] Estimated Glomerular Filt Rate >60 [facility] Comment:Chronic Kidney Disea se: Estimated GFR < 60 mL/min/[id number] Kidney Disease: Estimated GFR < 15 mL/min/1.73m2 Blood Venous blood specimen / Unknown 12/31/2024 3:31 PM EST 12/31/2024 4:09 PM EST us Mara Mariscal DO LAB BLOOD ORDERABLES Final R esult [facility] [address] [place] [phone] documented in this encounter Visit Diagnoses Diagnosis Screen for STD (sexually transmitted disease)- Primary Screening examination for venereal disease documented in this encounter Additional Health Concerns Assessment Noted Time PHQ-9 Depression Total Score: 0 07/21/20 24 9:54 AM EDT documented as of this encounter Care Teams Bead Forming Machine Set Up Operator Relationship Specialty Start Date End Date Mara Mariscal DO [address] [place] [address] PCP - General Family Medicine 09/03/12 documented as of this encounter
--- OUTSIDE RECORDS SUMMARY | 2024-12-31 18:42 | XMS_ITS | Encounter Summary ---
Author Organization [employer] [facility] Address [address] [facility] 7t [place] [address] Care Team Providers Care Carbide Tool Die Maker Name Role Phone Mara Mariscal DO Primary Care Provider + [phone] Reason for Visit * Reason Onset Date Comments Doxy 12/17/2024 Encounter Details Date Type Department Care Team (Late st Contact Info) Description 12/17/[address] [facility] MEDICINE [address] [place], [place] [phone] Sheryl Bui, CHRIS [address] [place] [address] Social History Tobacco Use Types Packs/Day Years [...] encounter Miscellaneous Notes * Telephone Encounter - Sheryl Bui RN - 12/17/2024 5:12 PM EST RN received call from pharmacy in regards to TC encounter on 12/12 from CRS: Patient stated she would like to have DoxyPEP, even though she doesn't like taking a lot of meds, but happy its not a daily pill, only to use after 24-72 hours after unprotected sex. can you please send Doxycycline script to [facility] pharmacy, thanks Patient is requesting RX to be sent. Above message sent to PCP however PCP is on VAC. RN will send to covering provider. documented in this encounter Plan of Treatment Upcoming Encounters Date Type Department Care Team (Late st Contact Info) Description 01/27/2025 9:45 AM EDT Office Visit [facility] MEDICINE [address] [place], [place] [phone] Mara Mariscal DO [address] [place] [address] documented as of this encounter Visit Diagnoses Not on filedocumented in this encounter Additional Health Concerns Assessment Noted Time PHQ-9 Depression Total Score: 0 07/21/20 9:54 AM EDT documented as of this encounter Care Teams Carbide Tool Die Maker Relationship Specialty Start Date End Date Mara Mariscal DO [address] [place] [address] PCP - General Family Medicine 09/03/12 documented as of this encounter
--- OUTSIDE RECORDS SUMMARY | 2024-12-31 18:42 | XMS_ITS | Encounter Summary ---
Author Organization [employer] Address 75 [facility] 7t [place] [address] Care Team Providers Care Switch Repairer Name Role Phone Mara Mariscal DO Primary Care Provider + [phone] Reason for Visit * Reason Comments Med Refill Encounter Details Date Type Department Care Team ([facility] st Contact Info) Description 06/18/2024 Refill [facility] MEDICINE [address] [place] [address] Hue Naqvi CNM [address] [place] [address] Social History Tobacco Use Types Packs/Day Years Used Date Smoking Tobacco: Every Day Cigarettes Passive Smoke Exposure: Current Smokeless Tobacco: Current Alcohol Use Standard Drinks/Week Comments Never 0 (1 standard drink = 0.6 oz pur e alcohol) Depression Answer Date Recorded Patient Health Questionnaire-9 Score 1 02/01/2024 Patient Health Questionnaire-9 Score 1 02/01/2024 Last PHQ-9: Questionnaire Data Not on file 0 02/01/2024 Housing Stability Answer Date Recorded What is [...] Answer Date Recorded Patient Health Questionnaire-2 Score 1 02/01/2024 Sex and Gender Information Value Date Recorded [...] Description 01/27/2025 9:45 AM EDT Office Visit [facility] MEDICINE [address] [place] [address] Mara Mariscal DO [address] [place] [address] documented as of this encounter Visit Diagnoses Not on filedocumented in this encounter Additional Health Concerns Assessment Noted Time PHQ-9 Depression Total Score: 1 02/01/20 24 10:01 AM EDT documented as of this encounter Care Teams Switch Repairer Relationship Specialty Start Date End Date Mara Mariscal DO [address] [place] [address] PCP - General Family Medicine 09/03/12 documented as of this encounter
--- OUTSIDE RECORDS SUMMARY | 2024-12-31 18:42 | XMS_ITS | Encounter Summary ---
Author Organization [employer] Address 75 [facility] 7t [place] [address] Care Team Providers Care Cow Tender Name Role Phone Mara Mariscal DO Primary Care Provider + [phone] Reason for Visit * Reason Comments Med Refill Encounter Details Date Type Department Care Team ([facility] st Contact Info) Description 11/18/[address] [facility] MEDICINE [address] [place], [place] [phone] Mara Mariscal DO [address] [place], [place] [phone] Fibromyalgia Social History Tobacco Use Types Packs/Day Years [...] Description 01/27/2025 9:45 AM EDT Office Visit [facility] MEDICINE [address] [place] [address] Mara Mariscal DO [address] [place] [address] documented as of this encounter Visit Diagnoses Diagnosis Fibromyalgia Unspecified myalgia and myositis documented in this encounter Additional Health Concerns Assessment Noted Time PHQ-9 Depression Total Score: 0 07/21/20 24 9:54 AM EDT documented as of this encounter Care Teams Cow Tender Relationship Specialty Start Date End Date Mara Mariscal DO [address] [place] [address] PCP - General Family Medicine 09/03/12 documented as of this encounter
[2025-01-01 08:43] LABS: ~HepC Num1 0.15 S/CO (0.00-0.79); ~Hepatitis C Antibody Nonreactive (Nonreactive)
[2025-01-01 08:47] LABS: Syphilis Screen Reactive (Nonreactive)
[2025-01-02 21:42] LABS: HIV RNA PCR Qn Copies NOT DETECTED copies/mL (NOT DETECTED); HIV RNA PCR Qn Log Copies NOT DETECTED (NOT DETECTED)
[2025-01-06 14:25] LABS: RPR Quantitative Non-Reactive (Nonreactive)
[2025-01-06 14:26] LABS: T.Pallidum Particle Agg Test Reactive (Nonreactive)
== END 2024-12-31 15:29 | disposition home or self-care (01) ==
LOC: HO.HHCL 15:28
PROVIDERS: Visit Provider Family Medicine
DX: Z11.3 Encounter for screening for infections with a predominantly sexual mode of transmission (principal)
CPT/HCPCS: 36415; 82565; 86592; 86780; 86803; 87536

== ENCOUNTER 2025-06-19 11:56 | Outpatient (REF) | payer MEDICAID, SELFPAY ==
--- OUTSIDE RECORDS SUMMARY | 2025-06-18 11:30 | XMS_ITS | Encounter Summary ---
Author Organization [facility] Address [address] [address] Phone Care Team Providers Care Scrapper Name Role Phone Mara Mariscal DO Primary Care Provider [phone] Reason for Visit * Speech Therapy (Routine) - Authorized Specialty Diagnoses / Procedures Referred By Latasha lewis Referred To Contact Speech Pathology Diagnoses Vocal Chord Dysfunction Mara Mariscal DO Phone: tel: fax: [facility] [address] [place] [address] Phone: tel: Referral ID Status Reason Start Date Expiration Date V isits Requested Visits Authorized [id number] Authorized 12/25/2024 12/25/2025 35 35 Encounter Details Date Type Department Care Team (Latest Contact Info) Description 06/18/2025 11:30 AM EDT Office Visit [facility] [address] [place] [address] Mara Mariscal DO [address] [place], [place] [id number] Michaelle Perkins, [facility] [address] [place] [address] Dysphonia (Primary Dx) Social History Tobacco Use Types Packs/Day Years Used Date Smoking Tobacco: Never Assessed Education Answer Date Recorded Are you interested in more education? Not on dennise e 09/10/2024 Are you concerned about learning? Not on file 09/10/2024 No 09/10/2024 No 09/10/2024 Digital Access Answer Date Recorded No 09/10/2024 No 09/10/2024 Reliable internet access at home? Not on file 09/10/2024 Device with a working camera? Not on file Sex and Gender Information Value Date Recorded Sex Assigned at Not on file Legal Sex Male 11:57 AM EST Gender Identity Not on file Sexual Orientation Not on file documented as of this encounter Progress Notes * Michaelle Perkins, [employer] [facility] - 06/18/2025 11:30 AM EDT Speech-Language Pathology Treatment Note Subject Line: Treatment Note Patient Name: Linda De Jesus Date of : 1970 Referring MD: Mara Mariscal DO [address] [place] [address] Patient was seen for a Speech Pathology visit on 06/18/2025. Subjective Comments: Pt reports fibromyalgia continues to give her limited energy. Treatment Plan: GOAL (Short Term): 1. Pt will demonstrate understanding of vocal mechanics, hygiene and technique with min to no cues. 2. Pt will demonstrate improved breath support without force for production of short discourse to Supervision level. 3. Pt will demonstrate resonance voice strategies to reduce laryngeal tension and discomfort at thesentence level with Supervision. 4. Pt will perform Vocal Function Exercises (VFEs) to provide laryngeal awareness and balance voicesystems integration with min to no cues for technique. 5.Perform musculoskeletal relaxation and stretching exercises for voice to Supervision/Mod I level. 6.Demonstrate recognition and modification of negative vocal behaviors to Supervision level. 7. Demonstrate integration of respiratory, phonatory, resonance and musculoskeletal systems in conversation to Min Assist/ Supervision level. 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 Demonstrate improved vocal quality with minimal to no alteration and.or discomfort for normal conversational use, through use of healthy vocal techniques at Supervision/Min Assist level within 12 weeks Patient Stated Goal: Voice Feel better PLAN Frequency and Duration: Patient will be seen 1 times per week for12 weeks. Plan Respiratory training/diaphragmatic breath support for speech Forward resonance training/Vocal Function Exercises (VFE's) Musculoskeletal tension reduction for voice related muscles of chest, neck, larynx, jaw, shoulders Education and training on vocal concepts, mechanics, hygiene Home practice program Verbal/visual/tactile feedback and supports Objective Information: 1. Pt will demonstrate understanding of vocal mechanics, hygiene and technique with min to no cues.: Pt reports that Omeprazole has helped with her reflux symptoms but she still reports discomfort at the left of midline on her throat. She continues to use SOVT in water (water bubbling for throat relaxation) and is generally following prescribed vocal hygiene techniques and recommendations. Goal isMET From prior note: Pt still does not have a referral to ENT; pt reports she has an appointment with her PCP 06/19/25 and will discuss ENT referral. Pt still complains of pain/discomfort in left side of throat. It is important for her to obtain a referral as this complaint has been since initial evaluation. Pt has beenseen in 2022 by ENT, and problems were noted then; and recently she had also complained of burning in throat. Recently she is taking Omeprazole for this once a day. ENT evaluation is critical to assess status of vocal folds and mechanics in light of these issues. 2. Pt will demonstrate improved breath support without force for production of short discourse to Supervision level: Pt used appropriate diaphragmatic breathing forproduction of exercises. Short discourse is improvedre: breath support but residual breath use is occurring occasionally without recognition.Pt demonstrates improved recognition of tension in her throat more readily. Goal is MET 3. Pt will demonstrate resonance voice strategies to reduce laryngeal tension and discomfort at thesentence level with Supervision.: pt reported any vibrations , such as SOVT with voice has been uncomfortable given the tenderness inthe left side of her neck. Pt was able to bubble (SOVT) with and without voice gently so as not to exacerbate neck discomfort. High degree of neck tension is noted today. 4. Pt will perform Vocal Function Exercises (VFEs) to provide laryngeal awareness and balance voicesystems integration with min to no cues for technique.: Sustained /iftikhar/: average pitch 147Hz with average volume of 63dB ; onset is easy; muscles are relaxed in jaw, neck , upper body. [place] up on /ho/: cues for oral rounding and opening, average range 123-192 (69) reduced range; productions are lower in range but relaxed. [place] down on /ho/: 90-209Hz; (118); Range is unchanged from last measures. Pt is able to achieve ahigher pitch starting high than progressing tp high range. Scales: 133-245Hz (112); 4 notes Goal MET 5.Perform musculoskeletal relaxation and stretching exercises for voice to Supervision/Mod I level.: Goal MET Pt continues to use SOVT (water bubbling for relaxation of the throat and neck) 7. Demonstrate integration of respiratory, phonatory, resonance and musculoskeletal systems in conversation to Min Assist/ Supervision level.: Pt has responded well to tension reduction techniques and is managing tension with stretching and SOVT in water techniques. Her coordination of all her systems for optimal healthy vocal technique continues to need attention Goal MET but could be advanced. Assessment: Pt has met most goals. She continues to have intermittent discomfort toward the left of midline on her neck. This is not the original discomfort she felt in her throat at the onset of therapy. Initial discomfort was likely contributed to by reflux and muscle tension combined. She has since started taking Omeprazole and reports relief. She has reduced the tension in her neck with a combination of s tretching techniques, learned use of healthier vocal technique and improved vocal hygiene. Pt is appropriate for discharge at this time with the understanding that she should continue to do her vocalexercises, SOVT in water and use learned vocal techniques. She may be seen with a new order after her ENT appointment if there is need. Otherwise, she is equipped to self manage her voice. Plan: Discharge Michaelle Perkins [employer]ACHINE FEEDER * Michaelle Perkins [employer] WRAPPING MACHINE FEEDER - 06/18/2025 11:30 AM EDT [facility] Speech Language Pathology Discharge Summary Subject Line: Discharge Note Name: Linda De Jesus : 1970 Diagnosis: Dysphonia [R49.0] Referring Physician: Mara Mariscal DO [address] [place] [address] Evaluation Date: 06/18/2025 Number of Visits: @[email or web address]@ 12 Current Objective Status: 1. Pt will demonstrate understanding of vocal mechanics, hygiene and technique with min to no cues.: Pt reports that Omeprazole has helped with her reflux symptoms but she still reports discomfort at the left of midline on her throat. She continues to use SOVT in water (water bubbling for throat relaxation) and is generally following prescribed vocal hygiene techniques and recommendations. Goal isMET From prior note: Pt still does not have a referral to ENT; pt reports she has an appointment with her PCP 06/19/25 and will discuss ENT referral. Pt still complains of pain/discomfort in left side of throat. It is important for her to obtain a referral as this complaint has been since initial evaluation. Pt has beenseen in 2022 by ENT, and problems were noted then; and recently she had also complained of burning in throat. Recently she is taking Omeprazole for this once a day. ENT evaluation is critical to assess status of vocal folds and mechanics in light of these issues. 2. Pt will demonstrate improved breath support without force for production of short discourse to Supervision level: Pt used appropriate diaphragmatic breathing forproduction of exercises. Short discourse is improvedre: breath support but residual breath use is occurring occasionally without recognition.Pt demonstrates improved recognition of tension in her throat more readily. Goal is MET 3. Pt will demonstrate resonance voice strategies to reduce laryngeal tension and discomfort at thesentence level with Supervision.: pt reported any vibrations , such as SOVT with voice has been uncomfortable given the tenderness inthe left side of her neck. Pt was able to bubble (SOVT) with and without voice gently so as not to exacerbate neck discomfort. High degree of neck tension is noted today. 4. Pt will perform Vocal Function Exercises (VFEs) to provide laryngeal awareness and balance voicesystems integration with min to no cues for technique.: Sustained /iftikhar/: average pitch 147Hz with average volume of 63dB ; onset is easy; muscles are relaxed in jaw, neck , upper body. [place] up on /ho/: cues for oral rounding and opening, average range 123-192 (69) reduced range; productions are lower in range but relaxed. [place] down on /ho/: 90-209Hz; (118); Range is unchanged from last measures. Pt is able to achieve ahigher pitch starting high than progressing tp high range. Scales: 133-245Hz (112); 4 notes Goal MET 5.Perform musculoskeletal relaxation and stretching exercises for voice to Supervision/Mod I level.: Goal MET Pt continues to use SOVT (water bubbling for relaxation of the throat and neck) 7. Demonstrate integration of respiratory, phonatory, resonance and musculoskeletal systems in conversation to Min Assist/ Supervision level.: Pt has responded well to tension reduction techniques and is managing tension with stretching and SOVT in water techniques. Her coordination of all her systems for optimal healthy vocal technique continues to need attention Goal MET but could be advanced. Discharge Summary: Pt has met most goals. She continues to have intermittent discomfort toward the left of midline on her neck. This is not the original discomfort she felt in her throat at the onset of therapy. Initial discomfort was likely contributed to by reflux and muscle tension combined. She has since started taking Omeprazole and reports relief. She has reduced the tension in her neck with a combination of s tretching techniques, learned use of healthier vocal technique and improved vocal hygiene. Pt is appropriate for discharge at this time with the understanding that she should continue to do her vocalexercises, SOVT in water and use learned vocal techniques. She may be seen with a new order after her ENT appointment if there is need. Otherwise, she is equipped to self manage her voice. Recommend referral to ENT for throat discomfort and laryngeal integrity check. GOAL (Short Term): 1. Pt will demonstrate understanding of vocal mechanics, hygiene and technique with min to no cues. 2. Pt will demonstrate improved breath support without force for production of short discourse to Supervision level. 3. Pt will demonstrate resonance voice strategies to reduce laryngeal tension and discomfort at thesentence level with Supervision. 4. Pt will perform Vocal Function Exercises (VFEs) to provide laryngeal awareness and balance voicesystems integration with min to no cues for technique. 5.Perform musculoskeletal relaxation and stretching exercises for voice to Supervision/Mod I level. 6.Demonstrate recognition and modification of negative vocal behaviors to Supervision level. 7. Demonstrate integration of respiratory, phonatory, resonance and musculoskeletal systems in conversation to Min Assist/ Supervision level. OUTCOME (Senior Care): 1. Demonstrate improved vocal quality with minimal to no alteration and.or discomfort for normal conversational use, through use of healthy vocal techniques at Supervision/Min Assist level within 12 weeks Patient Stated Goal: Voice Feel better PLAN Frequency and Duration: Patient will be seen 1 times per week for12 weeks. 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 It is not the complete legal health record.[facility]
--- NOTE | ~2025-06-19 | XR_ITS ---
EXAMINATION: XR HIP, LEFT CLINICAL INFORMATION: worsening hip pain COMPARISON: 08/21/2023. TECHNIQUE: Two views of the left hip. FINDINGS: No fracture. Alignment is anatomic. Hip joint space is maintained. Soft tissues are unremarkable. XR/XR hip LT min 2V IMPRESSION: Normal left hip. Electronically signed by: Alejandro Berrios MD 06/19/2025 12:24 PM EDT
--- NOTE | ~2025-06-19 | XR_ITS ---
EXAMINATION: XR SHOULDER, LEFT CLINICAL INFORMATION: worsening shoulder pain, h/o clavicle fracture COMPARISON: 07/23/2024, 06/25/2024 left clavicle x-rays. 06/25/2024 left shoulder x-rays. TECHNIQUE: Three views of the left shoulder. 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 No acute fracture or dislocation. The glenohumeral joint is normal. The AC joint is normal. No undersurface spurring of the acromion. The subacromial space is preserved. Remainder of the soft tissue and bony structures appear normal. XR/XR shoulder LT min 2V IMPRESSION: 1. 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 2. No acute fracture or dislocation. Electronically signed by: Alejandro Berrios MD 06/19/2025 12:31 PM EDT
--- NOTE | ~2025-06-19 | XR_ITS ---
EXAMINATION: XR CLAVICLE, LEFT CLINICAL INFORMATION: worsening shoulder pain, h/o clavicle fracture COMPARISON: None available. TECHNIQUE: 2 view of the left clavicle. FINDINGS: There is a fracture of the distal diaphysis of the clavicle. Margins are corticated. There is full shaft width inferior displacement. AC joint is intact and not degenerated. XR/XR clavicle LT IMPRESSION: Distal clavicle fracture with full shaft width downward displacement and nonunion. Electronically signed by: Cristian Prince MD 06/19/2025 12:24 PM EDT
--- OUTSIDE RECORDS SUMMARY | 2025-06-19 11:59 | XMS_ITS | Encounter Summary ---
Author Organization [employer] Address [address] [facility] [address] [place] [address] Care Team Providers Care Developmental Mathematics Professor Name Role Phone Mara Mariscal DO Primary Care Provider [phone] Reason for Visit * Reason Comments Med Refill Encounter Details Date Type Department Care Team (Late st Contact Info) Description 02/20/2025 Refill [facility] [address] [place], [place] [id number] Mara Mariscal DO [address] [place], [place] [id number] Anxiety Social History Tobacco Use Types Packs/Day Years Used Date Smoking Tobacco: Every Day Cigarettes Passive Smoke Exposure: Current Smokeless Tobacco: Current Alcohol Use Standard Drinks/Week Comments Yes 0 (1 standard drink = 0.6 oz [...] to shut off services in your home? Yes 01/16/2025 Depression Answer Date Recorded Patient Health Questionnaire-2 [...] as of this encounter Plan of Treatment Not on file documented as of this encounter Visit Diagnoses Diagnosis Anxiety Anxiety state, unspecified documented in this encounter Additional Health Concerns Assessment Noted Time PHQ-9 Depression Total Score: 0 07/21/20 24 9:54 AM EDT documented as of this encounter Care Teams Developmental Mathematics Professor Relationship Specialty Start Date End Date Mara Mariscal DO [address] [place] [id number] PCP - General Family Medicine 09/03/12 documented as of this encounter
== END 2025-06-19 11:57 | disposition home or self-care (01) ==
LOC: HO.HHCX 11:56
PROVIDERS: PCP Family Medicine; Visit Provider Family Medicine
DX: M25.512 Pain in left shoulder (principal); G89.29 Other chronic pain; M25.552 Pain in left hip
CPT/HCPCS: 73000; 73030; 73502

== ENCOUNTER → 2025-06-19 12:00 | Outpatient (BNV) | payer MEDICAID, SELFPAY | PROVIDERS: PCP Family Medicine; Visit Provider Radiology Diagnostic Radiology | DX: M25.552 Pain in left hip (principal); S42.031K Displaced fracture of lateral end of right clavicle, subsequent encounter for fracture with nonunion | CPT/HCPCS: 73000; 73030; 73502 ==

== ENCOUNTER 2025-06-19 12:18 | Outpatient (REF) | payer MEDICAID, SELFPAY ==
[2025-06-19 14:40] LABS: Hematocrit 47.7 % (42.0-52.0); Hemoglobin 15.6 g/dl (14.0-18.0); Mean Corpuscular HGB Conc 32.7 g/dl (31.0-36.0); Mean Corpuscular Hemoglobin 33.5 pg (27.0-33.0); Mean Corpuscular Volume 102.6 fL (80.0-98.0); NRBC Abs Auto 0.000 X10*3/uL (0.0-0.012); NRBC Pct Auto 0.0 /100WBC (0.0-0.2); Platelet Count 299 X10*3/uL (160-400); Red Blood Count 4.65 X10*6/uL (4.60-5.80); White Blood Count 8.2 X10*3/uL (4.8-10.8)
[2025-06-19 15:02] LABS: Hemoglobin A1C 126.9704 umol/L; Total Hemoglobin (HGBA1C) 4043.9478 umol/L
[2025-06-19 15:08] LABS: Alanine Aminotransferase 25 U/L (0-40); Albumin Level 5.3 g/dL (3.5-5.0); Alkaline Phosphatase 62 U/L (39-117); Anion Gap 12 (12-20); Aspartate Amino Transferase 24 U/L (5-37); Blood Urea Nitrogen 14 mg/dL (9-16); Calcium 10.0 mg/dL (8.4-10.2); Carbon Dioxide 30 mmol/L (22-29); Chloride 102 mmol/L (96-108); Cholesterol 203 mg/dL (<200); Estimated Glomerular Filt Rate > 60; HDL Cholesterol 82 mg/dL (>40); Iron 54 mcg/dL (45-160); Percent Iron Saturation 16 % (15-50); Potassium 4.2 mmol/L (3.3-5.1); Sodium 140 mmol/L (135-145); Total Iron Binding Capacity 336 mcg/dL (228-428); Total Protein 8.3 g/dL (6.5-8.0); Triglycerides 91 mg/dL (<150); Unsaturated Iron Binding 282 ug/dL
[2025-06-19 15:29] LABS: Ferritin 84 ng/mL (20-250); Free T4 (Free Thyroxine) 0.95 ng/dL (0.71-1.85); Thyroid Stimulating Hormone 1.95 uIU/mL (0.32-4.0)
[2025-06-19 15:40] LABS: Folate 16.2 ng/mL (> or = 4.0); Vitamin B12 1057 pg/mL (200-900)
[2025-06-20 08:36] LABS: HBS Num1 > 1000.00 mIU/mL (0-7.99); HBsAGNum1 0.35 S/CO (0.00-0.99); HIV Num 1 0.08 S/CO (0.00-0.99); Hepatitis B Surface Antigen Negative (Negative); ~HepC Num1 0.11 S/CO (0.00-0.79); ~Hepatitis B Surface Antibody REACTIVE (Nonreactive); ~Hepatitis C Antibody Nonreactive (Nonreactive)
[2025-06-26 06:43] LABS: Estradiol Ultra Sensitive 11 pg/mL (< OR = 29)
== END 2025-06-19 12:19 | disposition home or self-care (01) ==
LOC: HO.HHCL 12:18
PROVIDERS: PCP Family Medicine; Visit Provider Family Medicine
DX: Z00.00 Encounter for general adult medical examination without abnormal findings (principal); G89.29 Other chronic pain; M25.552 Pain in left hip; M25.512 Pain in left shoulder; F33.9 Major depressive disorder, recurrent, unspecified; Z86.79 Personal history of other diseases of the circulatory system; D64.9 Anemia, unspecified; J45.30 Mild persistent asthma, uncomplicated; M79.7 Fibromyalgia; J30.9 Allergic rhinitis, unspecified; F17.200 Nicotine dependence, unspecified, uncomplicated; Z91.018 Allergy to other foods; J39.2 Other diseases of pharynx; R22.9 Localized swelling, mass and lump, unspecified; L30.9 Dermatitis, unspecified; Z71.3 Dietary counseling and surveillance; Z71.82 Exercise counseling
CPT/HCPCS: 36415; 80048; 80061; 80076; 82306; 82607; 82670; 82728; 82746; 83036; 83540; 84403; 84425; 84439; 84443; 85027; 86592; 86706; 86803; 87340; 87389